=== PATIENT | female | born 1965 | race Caucasian/White ===

== ENCOUNTER 2020-01-21 16:35 | Outpatient (CLI) | payer SELFPAY ==
[2020-01-21 17:22] LABS: Basophils # 0.1 10^3/uL (0.0-0.1); Basophils % 0.5 %; Eosinophils # 0.2 10^3/uL (0.0-0.8); Eosinophils % 2.5 %; Hematocrit 40.3 % (37.0-47.0); Hemoglobin 12.9 g/dL (11.5-15.3); Lymphocytes # 2.2 10^3/uL (0.8-4.8); Lymphocytes % 22.7 %; Mean Corpuscular Hemoglobin 30.6 pg (28.0-34.0); Mean Corpuscular Volume 95.7 fL (81-99); Mean Platelet Volume 9.9 fL (7.4-10.4); Monocytes # 0.5 10^3/uL (0.2-0.9); Monocytes % 5.6 %; Neutrophils # 6.47 10^3/uL (1.8-7.7); Neutrophils % 68.4 %; Nucleated Red Blood Cells % 0 %; Platelet Count 271 10^3/cmm (130-400); Red Blood Count 4.21 10^6/uL (4.1-5.3); White Blood Count 9.5 10^3/uL (4.0-10.0)
[2020-01-21 17:34] LABS: Alanine Aminotransferase 66 U/L (0-33); Albumin Level 4.2 g/dL (3.5-5.2); Alkaline Phosphatase 108 IU/L (35-105); Anion Gap 13.1 (5-19); Aspartate Amino Transferase 42 U/L (0-32); Blood Urea Nitrogen 22 mg/dL (6-20); Calcium 9.6 mg/dL (8.5-10.5); Carbon Dioxide 26 mmol/L (22-29); Chloride 103 mmol/L (98-107); Globulin 2.8 g/dL (1.3-4.6); Glucose 96 mg/dL (65-115); Osmolality Calculated 283 mOsm/kg (285-295); Potassium 4.1 mmol/L (3.5-5.1); Sodium 138 mmol/L (136-145); Total Bilirubin 0.6 mg/dL (0.15-1.2)
[2020-01-21 18:09] LABS: Estmated Average Glucose 148; Hemoglobin A1C 6.8 % (4.0-6.0)
== END 2020-01-21 16:36 | disposition home or self-care (01) ==
PROVIDERS: Visit Provider General Practice
DX: E11.9 Type 2 diabetes mellitus without complications (principal)
CPT/HCPCS: 80053; 83036; 85025

== ENCOUNTER 2020-12-22 18:53 | Outpatient (CLI) | payer SELFPAY ==
[2020-12-22 19:53] LABS: Basophils # 0.1 10^3/uL (0.0-0.1); Basophils % 0.8 %; Eosinophils # 0.3 10^3/uL (0.0-0.8); Eosinophils % 2.8 %; Hematocrit 44.4 % (37.0-47.0); Hemoglobin 13.9 g/dL (11.5-15.3); Lymphocytes # 2.3 10^3/uL (0.8-4.8); Lymphocytes % 23.7 %; Mean Corpuscular HGB Conc 31.3 g/dL (30.0-36.0); Mean Corpuscular Hemoglobin 30.8 pg (28.0-34.0); Mean Corpuscular Volume 98.4 fL (81-99); Mean Platelet Volume 10.1 fL (7.4-10.4); Monocytes # 0.6 10^3/uL (0.2-0.9); Monocytes % 6.6 %; Neutrophils # 6.37 10^3/uL (1.8-7.7); Neutrophils % 65.6 %; Nucleated Red Blood Cells % 0 %; Platelet Count 291 10^3/cmm (130-400); Red Blood Count 4.51 10^6/uL (4.1-5.3); Red Cell Distribution Width 13.1 % (12.1-15.1); White Blood Count 9.7 10^3/uL (4.0-10.0)
[2020-12-22 20:20] LABS: Anion Gap 18.5 (5-19); Blood Urea Nitrogen 12 mg/dL (6-20); Calcium 9.3 mg/dL (8.5-10.5); Carbon Dioxide 24 mmol/L (22-29); Chloride 99 mmol/L (98-107); Glomerular Filtration Rate 74.2 mL/min (90-130); Glucose 144 mg/dL (65-115); Osmolality Calculated 286 mOsm/kg (285-295); Potassium 4.5 mmol/L (3.5-5.1); Sodium 137 mmol/L (136-145)
[2020-12-22 20:27] LABS: Estmated Average Glucose 128; Hemoglobin A1C 6.1 % (4.0-6.0)
== END 2020-12-22 18:54 | disposition home or self-care (01) ==
LOC: LAB 18:55
PROVIDERS: PCP General Practice; Visit Provider General Practice
DX: I10 Essential (primary) hypertension (principal)
CPT/HCPCS: 80048; 83036; 85025

== ENCOUNTER 2021-06-19 11:17 | Outpatient (CLI) | payer OTHER, SELFPAY ==
--- NOTE | 2021-06-19 11:24 | XR_ITS ---
WS: [id number] Exam: XR knee LT 4V [id number] Date/Time of Exam: 06/19/2021 11:38 AM Reason For Exam: LEFT KNEE PAIN Comparison 02/05/2019. Moderate degenerative change of the medial and lateral joint compartments. No fracture or dislocation . No joint effusion. XR/XR knee LT 4V [id number] IMPRESSION: 1. Moderate DJD. No fracture or joint effusion.
--- NOTE | 2021-06-19 11:24 | XR_ITS ---
WS: [id number] Exam: XR knee RT 4V [id number] Date/Time of Exam: 06/19/2021 11:38 AM Reason For Exam: RIGHT KNEE PAIN Comparison 02/05/2019. No acute fracture or dislocation. Mild degenerative changes of the medial and lateral joint compartme nts. No joint effusion. Spurring of the posterior patella. XR/XR knee RT 4V [id number] IMPRESSION: 1. Degenerative changes. No fracture or joint effusion.
== END 2021-06-19 11:18 | disposition home or self-care (01) ==
PROVIDERS: PCP Nurse Practitioner Family; Visit Provider Nurse Practitioner Family
DX: M25.561 Pain in right knee (principal); M17.12 Unilateral primary osteoarthritis, left knee
CPT/HCPCS: 73564

== ENCOUNTER → 2021-07-10 08:40 | Outpatient (BNVA) | payer OTHER, SELFPAY | PROVIDERS: PCP Nurse Practitioner Family; Referring Provider Nurse Practitioner Family; Visit Provider Specialist | DX: M17.0 Bilateral primary osteoarthritis of knee (principal); M25.561 Pain in right knee; M25.562 Pain in left knee | CPT/HCPCS: 73560; 73565 ==

== ENCOUNTER 2021-08-08 09:15 | Outpatient (RCR) | payer OTHER, SELFPAY | END 2021-08-28 23:59 | disposition home or self-care (01) | LOC: SPT 09:15 | PROVIDERS: PCP Nurse Practitioner Family; Referring Provider Specialist; Visit Provider Specialist | DX: M25.562 Pain in left knee (principal); M25.561 Pain in right knee; M17.0 Bilateral primary osteoarthritis of knee | CPT/HCPCS: 97110; 97161 ==

== ENCOUNTER 2021-09-13 09:11 | Outpatient (RCR) | payer OTHER, SELFPAY | END 2021-09-28 23:59 | disposition home or self-care (01) | LOC: SPT 09:11 | PROVIDERS: PCP Nurse Practitioner Family; Referring Provider Specialist; Visit Provider Specialist | DX: M25.562 Pain in left knee (principal); M17.12 Unilateral primary osteoarthritis, left knee | CPT/HCPCS: 97110 ==

== ENCOUNTER 2021-10-13 13:50 | Outpatient (CLI) | payer OTHER, SELFPAY ==
--- NOTE | 2021-10-13 14:13 | MM_ITS ---
WS: [id number] Bilateral screening 3D tomosynthesis digital mammogram, 10/13/2021 Clinical Data: SCREENING Comparison: 07/19/2017, 04/13/2016, 10/15/2014, 10/07/2013, 03/26/2013, 02/19/2013, 07/19/2008. Findings: The breast parenchymal pattern shows fat replacement. No spiculated masses or clustered calcification s are seen. There are no secondary signs of carcinoma. MM/[place] [id number] Impression: 1. Negative bilateral mammogram unchanged. 2. Recommend annual screening mammograms. BIRADS: 1-Negative FOLLOW UP: 1 Year Follow-up The CAD roving or yarn color checker was used.
== END 2021-10-13 13:51 | disposition home or self-care (01) ==
LOC: RAD 13:53
PROVIDERS: PCP Nurse Practitioner Family; Visit Provider Nurse Practitioner Family
DX: Z12.31 Encounter for screening mammogram for malignant neoplasm of breast (principal)
CPT/HCPCS: 77063; 77067

== ENCOUNTER 2022-01-25 14:26 | Emergency (ER) | payer MEDICARE, SELFPAY ==
--- NOTE | 2022-01-25 14:43 | XR_ITS ---
WS: [id number] Exam: XR chest 1V portable [id number] Date/Time of Exam: 01/25/2022 2:43 PM Reason For Exam: syncope Comparison 04/26/2016. Small density seen in the left retrocardiac region near the costophrenic angle may represent left low er lobe infiltrate. Remaining lung esparza are clear. Cardiomediastinal silhouette is unremarkable for technique. Regional bony elements are intact. XR/XR chest 1V portable [id number] IMPRESSION: 1. Small density seen in the left lower lobe in the left retrocardiac region ne ar the costophrenic angle may represent left lower lobe infiltrate. This is an equivocal finding. The chest is otherwise negative.
[2022-01-25 15:00] VITALS: BP 111/65; PULSE 57; RESP 13; TEMP 36.6; O2SAT 100
[2022-01-25 15:07] LABS: Basophils # 0.1 10^3/uL (0.0-0.1); Basophils % 0.5 %; Eosinophils # 0.2 10^3/uL (0.0-0.8); Eosinophils % 1.5 %; Hematocrit 37.5 % (37.0-47.0); Hemoglobin 12.4 g/dL (11.5-15.3); Lymphocytes # 2.2 10^3/uL (0.8-4.8); Lymphocytes % 17.4 %; Mean Corpuscular HGB Conc 33.1 g/dL (30.0-36.0); Mean Corpuscular Hemoglobin 31.1 pg (28.0-34.0); Mean Platelet Volume 10.4 fL (7.4-10.4); Monocytes # 0.8 10^3/uL (0.2-0.9); Monocytes % 6.1 %; Neutrophils % 74.1 %; Nucleated Red Blood Cells % 0 %; Platelet Count 305 10^3/cmm (130-400); Red Blood Count 3.99 10^6/uL (4.1-5.3); White Blood Count 12.4 10^3/uL (4.0-10.0)
--- NOTE | 2022-01-25 15:17 | ECG_ITS ---
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 Measurements Intervals [place] Rate: 59 P: 56 MD: 170 QRS: 5 QRSD: 99 T: 35 QT: 420 QTc: 417 Interpretive Statements SINUS BRADYCARDIA Compared to ECG 01/25/2016 17:12:13 Sinus rhythm no longer present Electronically Signed On 01-25-2022 21:28:59 CDT by Connie Ivy M.D. [email or web address] [email or web address].[email or web address]/store/NU/[id number] f
--- NOTE | 2022-01-25 15:27 | ED_ITS ---
Documented by User: TONEY Betancourt 01/25/22 16:54 HPI - Syncope General: Chief Complaint: Syncope Stated Complaint: SYNCOPAL EPISODE Time Seen by Provider: 01/25/22 15:03 Source: patient Mode of arrival: ambulatory Limitations: no limitations History of Present Illness: Patient is a 56-year-old female who presents to ED today for evaluation following a syncopal episode while urinating. Patient states she has had multiple syncopal episodes (quantifying as approximately 50 over the past 1 to 2 years) that always seem to be present while she is urinating and/or defecating. She states today she was urinating and felt lightheaded and dizzy and knew she was going to pass out thus she lowered herself to the floor before losing brief consciousness. She denies any inju jasiel. She denies striking her head or LOC. She states while on the floor she felt too weak to get up and defecated on herself. Patient currently states she feels a little lightheaded and dizzy. PMH includes HTN, DM, and HLD. Patient denies chest pain, shortness of breath, difficulty breathing, palpitations. MD complaint: loss of consciousness and felt faint Onset (ago): hour(s) -: second(s) Prodromal symptoms: lightheaded Witnessed: No Context: after urination Injuries sustained associated with event: none Associated symptoms: Reports lightheadedness; Deny abdominal pain, chest pain, fever(s), headache(s), nausea or vertigo History: previous syncopal episode Treatments prior to arrival: none Review of Systems Const: Denies: fever(s), chills, body aches, fatigue or malaise Eyes: Denies: change in vision, blurry vision or photophobia Card: Reports: lightheadedness and syncope; Denies: chest pain, palpitations, irregular heart rhythm, edema, swelling of feet/ankles, pre-syncope, dyspnea on exertion, orthopnea, leg pain with exertion or acrocyanosis Resp: Denies: dyspnea, productive cough, wheezing, pain on inspiration, hemoptysis or chest congestion GI: Denies: abdominal pain, nausea, vomiting, heartburn or diarrhea : Denies: dysuria Musc: Denies: neck pain, back pain, extremity pain or joint pain Skin/Breast: Denies: rash Neuro: Reports: dizziness; Denies: headache(s), numbness in extremities, weakness in extremities, sensory changes, lack of coordination, difficulty walking, frequent falls, vertigo, behavioral changes, Slurred speech present, difficulty communicating thoughts or seizure-like activity PFSH ED PFSH: Family History Mother Cervical cancer Social History Smoking and tobacco status: never smoked Second hand smoke exposure: No Smoking risk assessment/counseling performed?: No Alcohol intake: never Physical Exam Const: COMMON NORMALS: no acute distress, patient oriented x3 and alert GENERAL APPEARANCE: cooperative NUTRITIONAL APPEARANCE: obese morbidly obese ORIENTATION/CONSCIOUSNESS: Yes awake, Yes oriented to person, Yes oriented to place and Yes oriented to time OTHER: appears tired/drowsy-this later vastly improved HENMT: COMMON NORMALS: normocephalic and atraumatic HEAD & SCALP: normal to inspection, normocephalic and atraumatic FACE & SINUS: normal facial exam Eye: COMMON NORMALS: Equal, round and reactive pupils present and EOMs intact bilaterally GENERAL EYE: appearance normal, both eyes and all related st ructures and normal light reflex PUPIL: Yes Equal, round and reactive pupils present DIRECT OPHTHALMOSCOPY: Yes normal light reflex Neck/C-Spine: COMMON NORMALS: full ROM, no lymphadenopathy and no meningeal signs CERVICAL SPINE: Yes cervical ROM normal, No pain with cervical ROM, No Cervical spine tenderness, No step off deformity and No Paracervical muscle tend erness Chest: COMMONS NORMALS: normal inspection of the chest and normal palpation of entire chest wall Resp: COMMON NORMALS: normal respiratory effort and clear to auscultation bilaterally AUSCULTATION: clear to auscultation bilaterally Cardio: COMMON NORMALS: regular rate and regular rhythm RATE: regular rate RHYTHM: regular rhythm GI: COMMON NORMALS: Normal to inspection, nondistended, normoactive bowel sounds present, Soft to palpation and non-tender PALPATION: Yes Soft to palpation Back/Pelvis: COMMON NORMALS: thoracic and lumbar spine normal to inspection, no thoracic nor lumbar tenderness and thoraco-lumbar ROM normal Extremity: COMMON NORMALS: normal to inspection GENERAL: Yes normal exam except as noted Neuro: LYUDMILA COMA SCALE: document GCS findings [place] coma scale eye opening: Spontaneous Lyudmila coma scale verbal response: Orientated [place] coma scale motor response: Obey commands [place] coma scale total score: 15 COMMON NORMALS: patient oriented x3, CN's II-XII intact bilaterally, moves all extremities, no focal motor deficits and no sensory deficits noted SENSORIUM/ORIENTATION: Yes alert, Yes oriented to person, Yes oriented to place and Yes oriented to time MENINGEAL SIGNS: Yes no meningeal signs SPEECH: speech normal MOTOR EXAM: 5/5 motor strength present throughout Skin: COMMON NORMALS: no rashes or lesions noted GENERAL SKIN EXAM: no rashes or lesions noted Course Vital Signs: Vital signs: Vital Signs Temperature 97.8 F 01/25/22 15:00 Pulse Rate 65 01/25/22 20:24 Respiratory Rate 16 01/25/22 20:24 Blood Pressure 111/65 01/25/22 16:40 Pulse Oximetry 100 01/25/22 20:24 Oxygen Delivery Me thod 01/25/22 16:40 MDM - Syncope Medical Decision Making Patient here with an episode of syncope while she was on the toilet. Patient states she has multiple previous identical episodes. He is not having any chest pain, shortness of breath, palpitations. Upon re-examination she is much more alert and oriented and conversing with her significant other in the room and eating Taco Jose. Patient's vital signs are stable. Blood work shows some mild kidney injury with a BUN/Cr of 40/1.9. Baseline seems to be roughly 15/0.8. She is on multiple nephrotoxic medications including lisinopril, metformin, and meloxicam. She has mild hyperkalemia at 5.4 without EKG changes. These are incidental findings and I do not think were a factor in her syncopal episode today as she has had multiple episodes previously. EKG showing sinus bradycardia at 59. Baseline trop negative. Patient was given 2L of fluids here. She will be taken off the nephrotoxic medications. We will place her on amlodipine for blood pressure. She can follow-up with PCP in regards to starting something different for her diabetes. I will go ahead and write her outpatient orders for US carotids, stress test, and echocardiogram for further evaluation of her recurrent syncope. She states she has an appointment scheduled with PCP (Tee Olvera) in 3 weeks however I will have case management try to get her a sooner appointment so they can go over medications and repeat a chemistry. Return to ED precautions given. Discussed case with Dr. Maza who agrees with plan for patient. Lab Data : 01/25/22 14:08 01/25/22 14:08 Radiology Impressions Chest X-Ray 01/25/22 14:43 IMPRESSION: 1. Small density seen in the left lower lobe in the left retrocardiac region near the costophrenic angle may represent left lower lobe infiltrate. This is an equivocal finding. The chest is otherwise negative. Laboratory Results WBC 12.4 10^3/uL (4.0-10.0) H 01/25/22 14:08 RBC 3.99 10^6/uL (4.1-5.3) L 01/25/22 14:08 Hgb 12.4 g/dL (11.5-15.3) 01/25/22 14:08 Hct 37.5 % (37.0-47.0) 01/25/22 14:08 MCV 94.0 fl (81-99) 01/25/22 14:08 MCH 31.1 pg (28.0-34.0) 01/25/22 14:08 MCHC 33.1 g/dL (30.0-36.0) 01/25/22 14:08 RDW 13.0 % (12.1-15.1) 01/25/22 14:08 Plt Count 305 10^3/cmm (130-400) 01/25/22 14:08 MPV 10.4 fL (7.4-10.4) 01/25/22 14:08 Neut % (Auto) 74.1 % 01/25/22 14:08 Lymph % (Auto) 17.4 % 01/25/22 14:08 [place] % (Auto) 6.1 % 01/25/22 14:08 Eos % (Auto) 1.5 % 01/25/22 14:08 Baso % (Auto) 0.5 % 01/25/22 14:08 Neut # (Auto) 9.20 10^3/uL (1.8-7.7) H 01/25/22 14:08 Lymph # (Auto) 2.2 10^3/uL (0.8-4.8) 01/25/22 14:08 [place] # (Auto) 0.8 10^3/uL (0.2-0.9) 01/25/22 14:08 Eos # (Auto) 0.2 10^3/uL (0.0-0.8) 01/25/22 14:08 Baso # (Auto) 0.1 10^3/uL (0.0-0.1) 01/25/22 14:08 Nucleated RBC % (auto) 0 % 01/25/22 14:08 Nucleated RBCs # 0.0 /100WBC 01/25/22 14:08 Sodium 133 mmol/L (136-145) L 01/25/22 14:08 Potassium 5.4 mmol/L (3.5-5.1) H 01/25/22 14:08 Chloride 97 mmol/L (98-107) L 01/25/22 14:08 Carbon Dioxide 23 mmol/L (22-29) 01/25/22 14:08 Anion Gap 18.4 (5-19) 01/25/22 14:08 BUN 40 mg/dL (6-20) H 01/25/22 14:08 Creatinine 1.9 mg/dL (0.5-0.9) H 01/25/22 14:08 GFR Calculation 27.2 mL/min (90-130) L 01/25/22 14:08 Glucose 101 mg/dL (65-115) 01/25/22 14:08 Calculated Osmolality 286 mOsm/kg (285-295) 01/25/22 14:08 Calcium 9.5 mg/dL (8.5-10.5) 01/25/22 14:08 Total Bilirubin 1.0 mg/dL (0.15-1.2) 01/25/22 14:08 AST 27 U/L (0-32) 01/25/22 14:08 ALT 25 U/L (0-33) 01/25/22 14:08 Alkaline Phosphatase 76 IU/L (35-105) 01/25/22 14:08 Troponin T Baseline 9 ng/L (0-10) 01/25/22 14:08 Total Protein 7.2 g/dL (6.6-8.7) 01/25/22 14:08 Albumin 4.7 g/dL (3.5-5.2) 01/25/22 14:08 Globulin 2.5 g/dL (1.3-4.6) 01/25/22 14:08 Urine Color Yellow (Yellow) 01/25/22 16:07 Urine Appearance Clear (CLEAR) 01/25/22 16:07 Urine pH 5 (5-7) 01/25/22 16:07 Ur Specific [place] 1.010 (1.005-1.030) 01/25/22 16:07 Urine Protein Neg (Negative) 01/25/22 16:07 Urine Glucose (UA) Norm (Normal) 01/25/22 16:07 Urine Ketones Negative (Negative) 01/25/22 16:07 Urine Blood Neg (Negative) 01/25/22 16:07 Urine Nitrate Negative (Negative) 01/25/22 16:07 Urine Bilirubin Neg (Negative) 01/25/22 16:07 Urine Urobilinogen 1 mg/dL (Negative) H 01/25/22 16:07 Ur Leukocyte Esterase Negative (Negative) 01/25/22 16:07 Urine Opiates Screen Negative ng/mL (Negative) 01/25/22 16:07 Ur Barbiturates Screen Negative ng/mL (Negative) 01/25/22 16:07 Ur Phencyclidine Scrn Negative ng/mL (Negative) 01/25/22 16:07 Ur Amphetamines Screen Negative ng/mL (Negative) 01/25/22 16:07 U Benzodiazepines Scrn Negative ng/mL (Negative) 01/25/22 16:07 Urine Cocaine Screen Negative ng/mL (Negative) 01/25/22 16:07 U Marijuana (THC) Screen Positive ng/mL (Negative) H 01/25/22 16:07 Discharge Plan Discharge Patient Disposition: Home Clinical Impression: Acute kidney injury, Acute hyperkalemia, Recurrent syncope Condition: Stable Prescriptions: New amlodipine 5 mg tablet 5 mg PO DAILY Qty: 30 0RF Discontinued lisinopril 20 mg tablet 20 mg PO QPM metformin 500 mg tablet 500 mg PO DAILY meloxicam 15 mg Tablet 15 mg PO DAILY PRN (Reason: Pain) No Action atorvastatin 20 mg Tablet 20 mg PO DAILY paroxetine HCl 20 mg Tablet 20 mg PO DAILY gabapentin 300 mg capsule 300 mg PO BID Tylenol 325 mg Capsule 325 mg PO QID PRN (Reason: Pain) Fish Oil 100-160-1,000 mg Capsule 1 cap PO DAILY Women's 50 Plus Multivitamin 400 mcg-500 mg calcium-20 mcg Tablet 1 tab PO DAILY vitamin F36-erolu acid 2,500-400 mcg Tablet,Disintegrating 1 tab PO DAILY Discharge Orders: Discharge ED (Routine); Ordered 01/25/22 Ordered By: Valerie Canales Referrals: Maddie Funes FNP [Primary Care Provider] - Activity Restrictions/Additional Instructions: As we discussed your kidney functions were elevated today. You were given fluids here and we will take you off of your nephrotoxic medications (medications that can further injure the kidneys) of meloxicam, lisinopril, metformin. You need to follow-up with your primary care provider as soon as possible (WITHIN ONE WEEK) so they can follow-up with you in regards to your new blood pressure medication, your diabetes, and repeat kidney function labs. Case management/central scheduling should be contacting you to set you up with some outpatient cardiac tests (stress test, echocardiogram, ultrasound of your carotid arteries) for further evaluation of your recurrent syncope. Coding Level of Care Code ED Plycor Operator for Chg Fwd Exam Comprehensive Documented by User: Jossue Maza DO 01/27/22 07:52 HPI - Syncope General: Chief Complaint: Syncope Stated Complaint: SYNCOPAL EPISODE Time Seen by Provider: 01/25/22 15:03 PFS ED PFSH: Family History Mother Cervical cancer Social History Smoking and tobacco status: never smoked Second hand smoke exposure: No Smoking risk assessment/counseling performed?: No Alcohol intake: never Physical Exam Neuro: LYUDMILA COMA SCALE: document GCS findings Lyudmila coma scale total scor e: 15 Course Vital Signs: Vital signs: Vital Signs Temperature 97.8 F 01/25/22 15:00 Pulse Rate 65 01/25/22 20:24 Respiratory Rate 16 01/25/22 20:24 Blood Pressure 111/65 01/25/22 16:40 Pulse Oximetry 100 01/25/22 20:24 Oxygen Delivery Me thod 01/25/22 16:40 MDM - Syncope Medical Decision Making Patient here with an episode of syncope while she was on the toilet. Patient states she has multiple previous identical episodes. He is not having any chest pain, shortness of breath, palpitations. Upon re-examination she is much more alert and oriented and conversing with her significant other in the room and eating Taco Jose. Patient's vital signs are stable. Blood work shows some mild kidney injury with a BUN/Cr of 40/1.9. Baseline seems to be roughly 15/0.8. She is on multiple nephrotoxic medications including lisinopril, metformin, and meloxicam. She has mild hyperkalemia at 5.4 without EKG changes. These are incidental findings and I do not think were a factor in her syncopal episode today as she has had multiple episodes previously. EKG showing sinus bradycardia at 59. Baseline trop negative. Patient was given 2L of fluids here. She will be taken off the nephrotoxic medications. We will place her on amlodipine for blood pressure. She can follow-up with PCP in regards to starting something dif ferent for her diabetes. I will go ahead and write her outpatient orders for US carotids, stress test, and echocardiogram for further evaluation of her recurrent syncope. She states she has an appointment scheduled with PCP (Tee Olvera) in 3 weeks however I will have case management try to get her a sooner appointment so they can go over medications and repeat a chemistry. Return to ED precautions given. Discussed case with Dr. Maza who agrees with plan for patient. Chart reviewed and patient discussed with midlevel. Agree with assessment and plan. Lab Data : 01/25/22 14:08 01/25/22 14:08 Radiology Impressions Chest X-Ray 01/25/22 14:43 IMPRESSION: 1. Small density seen in the left lower lobe in the left retrocardiac region near the costophrenic angle may represent left lower lobe infiltrate. This is an equivocal finding. The chest is otherwise negative. Laboratory Results WBC 12.4 10^3/uL (4.0-10.0) H 01/25/22 14:08 RBC 3.99 10^6/uL (4.1-5.3) L 01/25/22 14:08 Hgb 12.4 g/dL (11.5-15.3) 01/25/22 14:08 Hct 37.5 % (37.0-47.0) 01/25/22 14:08 MCV 94.0 fl (81-99) 01/25/22 14:08 MCH 31.1 pg (28.0-34.0) 01/25/22 14:08 MCHC 33.1 g/dL (30.0-36.0) 01/25/22 14:08 RDW 13.0 % (12.1-15.1) 01/25/22 14:08 Plt Count 305 10^3/cmm (130-400) 01/25/22 14:08 MPV 10.4 fL (7.4-10.4) 01/25/22 14:08 Neut % (Auto) 74.1 % 01/25/22 14:08 Lymph % (Auto) 17.4 % 01/25/22 14:08 [place] % (Auto) 6.1 % 01/25/22 14:08 Eos % (Auto) 1.5 % 01/25/22 14:08 Baso % (Auto) 0.5 % 01/25/22 14:08 Neut # (Auto) 9.20 10^3/uL (1.8-7.7) H 01/25/22 14:08 Lymph # (Auto) 2.2 10^3/uL (0.8-4.8) 01/25/22 14:08 [place] # (Auto) 0.8 10^3/uL (0.2-0.9) 01/25/22 14:08 Eos # (Auto) 0.2 10^3/uL (0.0-0.8) 01/25/22 14:08 Baso # (Auto) 0.1 10^3/uL (0.0-0.1) 01/25/22 14:08 Nucleated RBC % (auto) 0 % 01/25/22 14:08 Nucleated RBCs # 0.0 /100WBC 01/25/22 14:08 Sodium 133 mmol/L (136-145) L 01/25/22 14:08 Potassium 5.4 mmol/L (3.5-5.1) H 01/25/22 14:08 Chloride 97 mmol/L (98-107) L 01/25/22 14:08 Carbon Dioxide 23 mmol/L (22-29) 01/25/22 14:08 Anion Gap 18.4 (5-19) 01/25/22 14:08 BUN 40 mg/dL (6-20) H 01/25/22 14:08 Creatinine 1.9 mg/dL (0.5-0.9) H 01/25/22 14:08 GFR Calculation 27.2 mL/min (90-130) L 01/25/22 14:08 Glucose 101 mg/dL (65-115) 01/25/22 14:08 Calculated Osmolality 286 mOsm/kg (285-295) 01/25/22 14:08 Calcium 9.5 mg/dL (8.5-10.5) 01/25/22 14:08 Total Bilirubin 1.0 mg/dL (0.15-1.2) 01/25/22 14:08 AST 27 U/L (0-32) 01/25/22 14:08 ALT 25 U/L (0-33) 01/25/22 14:08 Alkaline Phosphatase 76 IU/L (35-105) 01/25/22 14:08 Troponin T Baseline 9 ng/L (0-10) 01/25/22 14:08 Total Protein 7.2 g/dL (6.6-8.7) 01/25/22 14:08 Albumin 4.7 g/dL (3.5-5.2) 01/25/22 14:08 Globulin 2.5 g/dL (1.3-4.6) 01/25/22 14:08 Urine Color Yellow (Yellow) 01/25/22 16:07 Urine Appearance Clear (CLEAR) 01/25/22 16:07 Urine pH 5 (5-7) 01/25/22 16:07 Ur Specific [place] 1.010 (1.005-1.030) 01/25/22 16:07 Urine Protein Neg (Negative) 01/25/22 16:07 Urine Glucose (UA) Norm (Normal) 01/25/22 16:07 Urine Ketones Negative (Negative) 01/25/22 16:07 Urine Blood Neg (Negative) 01/25/22 16:07 Urine Nitrate Negative (Negative) 01/25/22 16:07 Urine Bilirubin Neg (Negative) 01/25/22 16:07 Urine Urobilinogen 1 mg/dL (Negative) H 01/25/22 16:07 Ur Leukocyte Esterase Negative (Negative) 01/25/22 16:07 Urine Opiates Screen Negative ng/mL (Negative) 01/25/22 16:07 Ur Barbiturates Screen Negative ng/mL (Negative) 01/25/22 16:07 Ur Phencyclidine Scrn Negative ng/mL (Negative) 01/25/22 16:07 Ur Amphetamines Screen Negative ng/mL (Negative) 01/25/22 16:07 U Benzodiazepines Scrn Negative ng/mL (Negative) 01/25/22 16:07 Urine Cocaine Screen Negative ng/mL (Negative) 01/25/22 16:07 U Marijuana (THC) Screen Positive ng/mL (Negative) H 01/25/22 16:07 Discharge Plan Discharge Patient Disposition: Home Clinical Impression: Acute kidney injury, Acute hyperkalemia, Recurrent syncope Condition: Stable Prescriptions: New amlodipine 5 mg tablet 5 mg PO DAILY Qty: 30 0RF Discontinued lisinopril 20 mg tablet 20 mg PO QPM metformin 500 mg tablet 500 mg PO DAILY meloxicam 15 mg Tablet 15 mg PO DAILY PRN (Reason: Pain) No Action atorvastatin 20 mg Tablet 20 mg PO DAILY paroxetine HCl 20 mg Tablet 20 mg PO DAILY gabapentin 300 mg capsule 300 mg PO BID Tylenol 325 mg Capsule 325 mg PO QID PRN (Reason: Pain) Fish Oil 100-160-1,000 mg Capsule 1 cap PO DAILY Women's 50 Plus Multivitamin 400 mcg-500 mg calcium-20 mcg Tablet 1 tab PO DAILY vitamin M18-hhkii acid 2,500-400 mcg Tablet,Disintegrating 1 tab PO DAILY Discharge Orders: Discharge ED (Routine); Ordered 01/25/22 Ordered By: Valerie Canales Referrals: Maddie Funes CURRICULUM WRITER [Primary Care Provider] - Activity Restrictions/Additional Instructions: As we discussed your kidney functions were elevated today. You were given fluids here and we will take you off of your nephrotoxic medications (medi cations that can further injure the kidneys) of meloxicam, lisinopril, metformin. You need to follow-up with your primary care provider as soon as possible (WITHIN ONE WEEK) so they can follow-up with you in regards to your new blood pressure medication, your diabetes, and repeat kidney function labs. Case management/central scheduling should be contacting you to set you up with some outpatient cardiac tests (stress test, echocardiogram, ultrasound of your carotid arteries) for further evaluation of your recurrent syncope. Coding Level of Care Code ED Plycor Operator for Chg Fwd Exam Comprehensive
[2022-01-25 15:41] LABS: Alanine Aminotransferase 25 U/L (0-33); Albumin Level 4.7 g/dL (3.5-5.2); Alkaline Phosphatase 76 IU/L (35-105); Anion Gap 18.4 (5-19); Aspartate Amino Transferase 27 U/L (0-32); Blood Urea Nitrogen 40 mg/dL (6-20); Calcium 9.5 mg/dL (8.5-10.5); Carbon Dioxide 23 mmol/L (22-29); Chloride 97 mmol/L (98-107); Globulin 2.5 g/dL (1.3-4.6); Glomerular Filtration Rate 27.2 mL/min (90-130); Glucose 101 mg/dL (65-115); Osmolality Calculated 286 mOsm/kg (285-295); Potassium 5.4 mmol/L (3.5-5.1); Sodium 133 mmol/L (136-145); Total Protein 7.2 g/dL (6.6-8.7)
[2022-01-25 15:42] LABS: Troponin(5th) Baseline 9 ng/L (0-10)
[2022-01-25 16:18] LABS: Add Urine Microscopic? NO; Charge for UA Resulting for Rev
[2022-01-25 16:20] LABS: Bilirubin Urine Neg (Negative); Blood Urine Neg (Negative); Glucose Urine UA Norm (Normal); Ketones Urine Negative (Negative); Leukocyte Esterase Urine Negative (Negative); Nitrate Urine Negative (Negative); Protein Urine Neg (Negative); Urine Appearance Clear (CLEAR); Urine Color Yellow (Yellow); Urobilinogen Urine 1 mg/dL (Negative); pH Urine 5 (5-7)
[2022-01-25 16:29] LABS: Amphetamines Screen Urine Negative (Negative); Barbiturates Screen Urine Negative (Negative); Benzodiazepines Screen Urine Negative (Negative); Cocaine Screen Urine Negative (Negative); Opiate Screen Urine Negative (Negative); PCP Screen Urine Negative (Negative); THC Screen Urine Positive (Negative)
[2022-01-25] MEDS: sodium chloride 0.9% 1,000 ML 999 ML IV ×2 (16:30→16:50)
[2022-01-25 16:40] VITALS: BP 111/65; PULSE 66; RESP 18; O2SAT 100
--- NOTE | 2022-01-25 17:44 | ECG_ITS ---
[facility] Test Date: 2022-01-25 Pat Name: Nicole Villa Department: Room: Gender: Female Generation Technician: : 1965 Requested By: Valerie Canales Order Number: [id number] Edith MD: Meg Meza M.D. Measurements Intervals [place] Rate: 63 P: 56 NH: 179 QRS: 4 QRSD: 95 T: 38 QT: 425 QTc: 435 Interpretive Statements SINUS RHYTHM Compared to ECG 01/25/2022 15:17:48 Sinus bradycardia no longer present Electronically Signed On 01-26-2022 10:38:57 CDT by Meg Meza M.D. [id number]
[2022-01-25 20:24] VITALS: PULSE 65; RESP 16; O2SAT 100
--- NOTE | 2022-01-29 10:29 | DCPLANNER ---
manager human capital had message to see if patients appointment at [facility] could be rescheduled any sooner that what it is scheduled. manager human capital called [facility] to see if patient was a patient at [facility] and to see if patients appointment could be seen sooner. manager human capital was told that patient had not been seen at the clinic since 2005, patient has a new patient appointment scheduled for February 20. Patient will be seeing Dr. Hahn, who will start on February 12. Patient can not be seen any sooner. manager human capital called patient to inform patient of this, unable to speak with patient at this time. manager human capital called phone number [phone], a voicemail was left for patient to return piano case and bench assembler phone call.
--- NOTE | 2022-01-29 10:39 | DCPLANNER ---
Addendum entered by Ivet Avery 07/10/22 12:54: Patient did not attend appointment scheduled for an echo Original Note: recreation manager had message to schedule an outpatient echo cardiogram for patient. recreation manager faxed signed order to centralized scheduling who will call patient with appointment information.
--- NOTE | 2022-01-29 10:52 | DCPLANNER ---
Addendum entered by Ivet Avery 07/10/22 12:51: Patient did attend appointment for an out patient stress test. Original Note: general manager in training also had a message to schedule an out patient stress test. general manager in training faxed signed order to centralized scheduling for an outpatient stress test. Centralized scheduling will call patient with appointment information.
--- NOTE | 2022-01-29 10:53 | DCPLANNER ---
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 livestock nutrition territory manager faxed signed order to centralized scheduling, who will call patient with appointment information.
== END 2022-01-25 20:25 | disposition home or self-care (01) ==
PROVIDERS: Emergency Provider Physician Assistant; PCP Nurse Practitioner Family
DX: R55 Syncope and collapse (principal); E87.5 Hyperkalemia; N17.9 Acute kidney failure, unspecified
CPT/HCPCS: 71045; 80053; 80306; 81003; 84484; 85025; 93005; 96360; 96361; 99285; J7030

== ENCOUNTER → 2022-03-07 12:32 | Outpatient (BNVA) | payer MEDICARE, SELFPAY | PROVIDERS: PCP Family Medicine; Visit Provider Internal Medicine Cardiovascular Disease | DX: R55 Syncope and collapse (principal); I49.1 Atrial premature depolarization; I49.3 Ventricular premature depolarization | CPT/HCPCS: 93270 ==

== ENCOUNTER 2022-04-27 07:29 | Outpatient (CLI) | payer MEDICARE, SELFPAY ==
[2022-04-27 08:00] VITALS: BMI 36.6
--- NOTE | 2022-04-27 08:41 | ECG_ITS ---
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 Interpretive Statements NAME OF STUDY: LEXISCAN SESTAMIBI STRESS TEST INDICATION: Syncope, PROCEDURE: At the baseline, the EKG revealed normal sinus rhythm with poor R wave progression.. The baseline heart was 62 bpm with a blood pressue of 141/80 mm of Hg Lexiscan was infused over a period of 20 seconds. A total of 0.4 milligrams of Lexiscan was infused. The stress phase was continued for a total of 5 minutes. Heart rate at the end of the stress phase was 78 bpm with a blood pressure 147/82 mm of Hg. The EKG at the peak infusion revealed no significant changes. Sestamibi was injected 20 seconds after the Lexiscan infusion. Heart rate at the end of the recovery phase was 73 bpm with a blood pressure of 127/82 mm of Hg. CONCLUSION: 1. No significant EKG changes with the LexiScan infusion 2. No LexiScan induced chest pain or cardiac arrhythmia 3. Normal blood pressure and heart rate response 4. Sestamibi/sestamibi perfusion scan pending; see separate report. Electronically Signed On 05-04-2022 7:33:52 CDT by Connie Ivy M.D. [email or web address]
--- NOTE | 2022-04-27 08:42 | NMCV_ITS ---
NM rina perf SPECT r/s* [id number] Nicole Villa Age: 56 Gender: F : 1965 Exam Date: 04/27/2022 08:46 Ordering Phys: Arturo Hahn MD Technologist: WENDY Tarango Exam Location: [facility] Indications: SYNCOPE AND COLLAPSE STRESS TEST Please see separate stress test report in [facility] for full findings IMAGE PROTOCOL Rest/Stress 1 Lexiscan Day Radiopharmaceutical Dose (mCi) Administration Site Administered by Rest: Tc-99m 10.8 IV WENDY Celeste Sestamibi Stress:Tc-99m 32.6 IV WNEDY Celeste Sestamibi Rest: 27-Apr-2022 60 Discovery 630 Stress: 27-Apr-2022 30 Discovery 630 0.4mg Lexiscan. Images obtained in supine and prone position. SPECT RESULTS Technical Quality: Good Raw Data Analysis: Normal Image Corrections: No attenuation or motion correction applied Summed Stress Score: 3 Summed Rest Score: 0 Summed Difference Score: 3 PERFUSION FINDINGS Small to moderate area of slightly decreased eccentric was noted on the mid inferolateral and apical lateral regions. Almost complete reversibility was noted at rest. FUNCTIONAL RESULTS (calculated via Gated SPECT) Stress Image LV EF (%): 74 Stress EDV (mL):82 TID: 0.95 Stress ESV (mL):21 FUNCTIONAL FINDINGS: Segmental wall motion analysis revealing no gross wall motion abnormalities. IMPRESSIONS 1. Myocardial perfusion imaging revealing small to moderate area of reversible defect in the mid inferolateral and apical lateral regions suggesting ischemia in the distribution of the left circumflex artery. 2. Normal LV ejection fraction 74%. 3. LV wall motion analysis revealing no gross wall motion normalities. 4. Normal LV volume No similar previous studies are available for comparison Dr Connie Ivy MD [facility] (Electronically Signed) Final Date: 30 April 2022 08:46 S
[2022-04-27 09:27] VITALS: BP 127/82; PULSE 71
[2022-04-27] MEDS: regadenoson 0.4 Mg/5 ml Syringe IVP (09:27)
== END 2022-04-27 07:30 | disposition home or self-care (01) ==
LOC: CDL 07:32
PROVIDERS: PCP Family Medicine; Visit Provider Family Medicine
DX: R55 Syncope and collapse (principal)
CPT/HCPCS: 78452; 93017; A9500; J2785

== ENCOUNTER → 2022-07-04 10:27 | Outpatient (BNVA) | payer MEDICARE, SELFPAY | PROVIDERS: PCP Family Medicine; Visit Provider Internal Medicine Cardiovascular Disease | DX: R94.39 Abnormal result of other cardiovascular function study (principal); R06.02 Shortness of breath; I10 Essential (primary) hypertension; E78.5 Hyperlipidemia, unspecified; E66.01 Morbid (severe) obesity due to excess calories; Z68.41 Body mass index [BMI] 40.0-44.9, adult | CPT/HCPCS: 99204; Q3014 ==

== ENCOUNTER → 2023-01-15 12:06 | Outpatient (BNVA) | payer MEDICARE, SELFPAY | PROVIDERS: PCP Family Medicine; Visit Provider Internal Medicine Cardiovascular Disease | DX: E78.5 Hyperlipidemia, unspecified (principal); R06.02 Shortness of breath; I10 Essential (primary) hypertension; E66.01 Morbid (severe) obesity due to excess calories; Z68.41 Body mass index [BMI] 40.0-44.9, adult | CPT/HCPCS: 36415; 80053; 80061; 83735; 83880; 85025; 99214 ==

== ENCOUNTER 2023-01-31 07:31 | Outpatient (CLI) | payer MEDICARE, SELFPAY ==
[2023-01-31] VITALS (15 sets, daily range): BP systolic 140–195; BP diastolic 68–125; PULSE 69–89; RESP 12–21; TEMP 36; O2SAT 93–98; BMI 44.0
--- NOTE | 2023-01-31 07:30 | XACV_ITS ---
Exam Room: 2 Ht: 157 cm Wt: 109 kg BSA: 2.25 m2 Gender: Female : 1965 Exam Priority: Routine Procedure(s): Procedure Description: Diagnostic procedure Procedure Description: Left Heart Catheterization Procedure Description: Coronary Angiography Diagnostic Cath Status: Elective Diagnostic Findings * 57-year-old woman with past medical history of hypertension, hyperlipidemia and abnormal stress test with small to moderate area of reversible ischemia in circumflex artery territory. She continues to have exertional shortness of breath and intermittent chest pains. I decided to proceed with coronary angiogram.. * No disease noted in the Left Main, Left Anterior Descending, Right, or Circumflex coronary arteries. * Coronary angiography shows codominant circulation. Conclusions 1. No disease noted in the Left Main, Left Anterior Descending, Right, or Circumflex coronary arteries. Recommendations * Continue current medical management and risk factor modification. * Return to inpatient for close monitoring and routine cath care. LV EDP: 25 mmHg Left Ventriculography Findings: * Left Ventriculogram not performed to minimize contrast use. Pressures Phase:Rest AO : 145 / 85 ( 112 ) @ 10:05:00 AM 110 / 88 ( 100 ) @ 10:09:00 AM 115 / 89 ( 103 ) @ 10:10:00 AM 116 / 91 ( 104 ) @ 10:15:00 AM 122 / 93 ( 108 ) @ 10:20:00 AM 147 / 76 ( 110 ) @ 10:25:00 AM 146 / 85 ( 112 ) @ 10:26:00 AM LV : 153 / 4 / 25 @ 10:24:00 AM Clinical Evaluation EBL: 5mL-10mL Procedural Details Procedure Consent Obtained. Admit Source: Out Patient. Pre-Procedure Time Out. Identified patient by full name and date of as verbalized by the patient/guarantor. Does the consent match the physician's order: Yes. Accurate & Complete Informed Consent: Yes. Inpatient/Outpatient History & Physical on Chart: Yes. If H&P is completed, is and addenduem needed: No; If yes, is the addendum complete: N/A. Visualize and Verify Site with Patient/Guarantor: N/A. Relevant Radiology Images available: N/A. The risks, benefits, and alternatives of sedation and/or procedure were discussed by physician. The patient agrees to continue. Procedure started. [facility] Clinical Fraility Score: 3: Managing Well. Lead Scientist Indications: abnormal stress test, worsening SOB. Chest Pain Symptom Assessment: Atypical Angina. Correct patient, site and procedure confirmed by cath team. PERRLA. Strong, equal hand observer electrical prospecting bilaterally. Lungs clear x 5 lobes. IV Site on Arrival: 20 gauge in the right anticubital. IV Fluids: 0.9% NaCl at KVO. 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 Pre Procedural Pulses: bilateral posterior tibial was Doppled. Pre Procedural Pulses: bilateral radial was 3+. Pre Procedural Pulses: bilateral dorsalis pedis was 2+. Oxygen started at 2liters/min via nasal canula. right groin was prepped with chloroprep then draped in the usual sterile fashion. right radial was prepped with chloroprep then draped in the usual sterile fashion. Physician notified. Baseline sample Acquired. HR: 81 BPM. Physician arrived. Physician scrubbed in. Immediate Pre-Procedure Time Out. Correct Patient: Yes; Correct Procedure: Yes; Correct Site: Yes; Correct Patient Position: Yes; Correct Supplies: Yes; Dried Flammable Prep: Yes; Blood Products Available: N/A;. Lidocaine 1% infiltrated to the right radial. Arterial access obtained. A 5 urdu TIG catheter in over wire. Multiple views taken of left coronary artery. Catheter redirected to the RCA. Multiple views taken of right coronary artery. Catheter out. A 5 urdu JL4 catheter in over wire. Multiple views taken of left coronary artery. A 5 urdu JR4 catheter in over wire. Multiple views taken of right coronary artery. EDP Sample taken: LV 153/4,25; HR: 86 BPM; SpO2: 96%. Pullback taken: LV Off; AO Off; Mean: , Peak to Peak: , SEP: ; HR: 84 BPM; SpO2: 95%. Catheter out. A TR Band was successful obtaining hemostatsis at the Right Radial artery insertion site. Post Procedure: Pulses reassessed and unchanged. PERRLA. Strong, equal hand observer electrical prospecting bilaterally. No VTE prophylaxis required. Medication's Wasted: Lidocaine 1% = 2 mL. Medication's Wasted: Nitro = 49.8 mg. Medication's Wasted: Heparin = 1000 units. Total IV fluids: 63 mL. Post-op diagnosis: normal coronory arteries. Complications: none. Estimated blood loss: 5mL-10mL. Responsiveness - Normal response to verbal stimuli; alert and oriented, PERRLA. Airway - Unaffected, no intervention required; spontaneous ventilation. Circulation: W/N/L, pulses unchanged. Nausea/Vomiting: No. Procedure completed. Patient transferred by wheelchair to CPRU. Vital chart was stopped. Access Site Site: Right Radial artery Sheath Size: 6 Fr Hemostasis Method: TR Band Hemostasis Success: Successful Procedure Medications Start: 8:44 AM Stop: 8:44 AM Medication: Fentanyl Amount: 25 mcg Route: I.V. Start: 8:51 AM Stop: 8:51 AM Medication: Versed 1 mg and Fentanyl 25 mcg Amount: 1 Route: I.V. Start: 9:02 AM Stop: 9:02 AM Medication: Nitrogylcerin Amount: 200 mcg Route: I.A. Start: 9:04 AM Stop: 9:04 AM Medication: Heparin Amount: 5000 units Route: I.V. Start: 9:04 AM Stop: 9:04 AM Medication: Versed Amount: 1 mg Route: I.V. Start: 9:05 AM Stop: 9:05 AM Medication: Fentanyl Amount: 25 mcg Route: I.V. Start: 9:22 AM Stop: 9:22 AM Medication: Fentanyl Amount: 25 mcg Route: I.V. I, the attending physician, have reviewed and verified all procedure medications. Yes, all medications given per verbal order History/Risk Factors Hypertension: Yes Dyslipidemia: Yes Peripheral Arterial Disease (PAD): No Myocardial Infarction (NE): No Obesity: Yes Tobacco Use: Never Prior Interventions PCI: No CABG: No Valve Surgery: No Report Signatures Finalized by Meg Meza MD on 01/31/2023 04:24 PM
[2023-01-31] MEDS: diphenhydrAMINE 50 mg Capsule PO (07:41)
[2023-01-31] MEDS: aspirin 325 mg Tablet PO (07:41)
--- NOTE | 2023-01-31 08:40 | P.HPUD_ITS ---
Surgery/Procedure H&P Update DATE OF PROCEDURE: January 31, 2023 DATE H&P PERFORMED: 01/15/23 H&P UPDATE INFORMATION: I have reviewed H&P completed within last 30 days, I have examined patient prior to procedure and No changes to prior documentation PREOP DIAGNOSIS: exertional shortness of nreath, abnormal stress test PRIMARY INDICATION FOR PROCEDURE: Extertional shortness of breath, abnormal stres stest PLANNED PROCEDURE: Operation Date: 01/31/23 08:30 Proposed Procedures p [facility] w/wo [id number] R94.39,R06.02(Left) - Meg Meza MD PATIENT REASSESSED PRIOR TO SEDATION, WITH NO CHANGE NOTED: Yes PHYSICAL EXAM: alert, oriented x 3, clear to auscultation bilaterally and regular rate & rhythm AIRWAY EVAL/ANESTHESIA PLAN: normal airway, ASA III, Monitored Anesthesia, Local Anesthesia, Risks, benefits & alternatives of sedation and/or procedure discussed and Patient agrees to continue as planned
--- NOTE | 2023-01-31 09:40 | SUR.PHASEII ---
Received the patient back from the aquatic laborer via wheelchair s/p Diagnostic [facility]. Patient ambulated to the cot without difficulty. A & 0 x 3. monitor and storage bin tender placed and vital signs obtained. TR band intact to the right wrist. No bleeding or hematoma noted. Palpable radial pulse. NS infusing to the 20g PIV in the right AC at 75mL/hr. No other assessment changes noted from pre cath assessment. No concerns voiced at this time.
--- NOTE | 2023-01-31 10:05 | SUR.PHASEII ---
Dr. Meza called about the patients hypertension. Orders received for PO DALLIN med. See MAR.
[2023-01-31] MEDS: amlodipine 10 mg Tablet PO (10:12)
--- NOTE | 2023-01-31 10:40 | SUR.EXTENDED ---
Letting the air out of the TR band per protocol.
--- NOTE | 2023-01-31 11:22 | SUR.PHASEII ---
Dr. Meza notified about continued hypertension despite PO med given at 1012. New orders received. See AUG.
[2023-01-31] MEDS: hyDRALAzine 20 mg/mL INJ 1 mL 10 MG IVP (11:35)
--- NOTE | 2023-01-31 11:40 | SUR.EXTENDED ---
TR Band off. Area cleansed with warm water & patted dry. A large bandaid was applied to the site. Coban was loosly applied to the wrist. No bleeding or hematoma noted. Site soft with palpable radial pulse. No other assessment changes noted a this time.
--- NOTE | 2023-01-31 12:14 | SUR.EXTENDED ---
Dr. Meza called again with the patients ongoing hypertension. New orders received. See AUG.
[2023-01-31] MEDS: labetalol 5 mg/mL SDV 20mL 20 MG IVP (12:28)
== END 2023-01-31 13:05 | disposition home or self-care (01) ==
PROVIDERS: PCP Family Medicine; Visit Provider Internal Medicine Cardiovascular Disease
DX: R06.02 Shortness of breath (principal); R94.39 Abnormal result of other cardiovascular function study; I10 Essential (primary) hypertension; E78.5 Hyperlipidemia, unspecified; R07.9 Chest pain, unspecified; E66.9 Obesity, unspecified; Z68.41 Body mass index [BMI] 40.0-44.9, adult
CPT/HCPCS: 36415; 93458; 96361; 96365; 99152; 99153; C1769; C1887; C1894; J0360; J1644; J2250; J3010; J3490; J7030; Q0163; Q9967

== ENCOUNTER → 2023-02-07 09:04 | Outpatient (BNVA) | payer MEDICARE, SELFPAY | PROVIDERS: PCP Family Medicine; Visit Provider Nurse Practitioner Family | DX: R06.02 Shortness of breath (principal); I10 Essential (primary) hypertension | CPT/HCPCS: 36415; 80048; 99214 ==

== ENCOUNTER → 2023-02-18 09:35 | Outpatient (BNVA) | payer MEDICARE, SELFPAY | PROVIDERS: PCP Family Medicine; Visit Provider Specialist | DX: M17.11 Unilateral primary osteoarthritis, right knee | CPT/HCPCS: 73560; 73565; 99214 ==

== ENCOUNTER → 2023-04-12 09:59 | Outpatient (BNVA) | payer MEDICARE, SELFPAY | PROVIDERS: PCP Family Medicine; Visit Provider Internal Medicine Cardiovascular Disease | DX: R06.02 Shortness of breath (principal); I10 Essential (primary) hypertension; E78.5 Hyperlipidemia, unspecified | CPT/HCPCS: 99214 ==

== ENCOUNTER 2024-03-13 18:17 | Emergency (ER) | payer MEDICARE, MEDICAID, SELFPAY ==
[2024-03-13 18:27] VITALS: BP 176/113; PULSE 80; RESP 18; TEMP 36.8; O2SAT 96
[2024-03-13 19:23] VITALS: PULSE 78; RESP 16; O2SAT 96
--- NOTE | 2024-03-13 19:47 | CTR_ITS ---
PROCEDURE INFORMATION: Exam: CT Head Without Contrast Exam date and time: 03/13/2024 8:25 PM Age: 58 years old Clinical indication: Pain; Headache; Patient HX: C/O MCKNIGHT with dizziness; Additional info: Headache dizziness TECHNIQUE: Imaging protocol: Computed tomography of the head without contrast. Radiation optimization: All CT scans at this facility use at least one of these dose optimization techniques: automated exposure control; mA and/or kV adjustment per patient size (includes targeted exams where dose is matched to clinical indication); or iterative reconstruction. COMPARISON: No relevant prior studies available. RADIATION DOSE METRICS: Total DLP (mGy-cm): 1073.78 FINDINGS: Brain: No intracranial hemorrhage. There is global parenchymal volume loss. Periventricular white matter hypoattenuation is nonspecific but most likely due to small vessel disease. No evidence of acute territorial infarct or cerebral edema. No mass effect or midline shift. Left anterior frontal parafalcine extra-axial calcified lesion measuring 1.1 x 0.7 x 1.1 cm, likely a calcified meningioma versus frontal osteoma. Additional right frontal vertex calcified extra-axial lesion measuring 0.5 x 0.5 x 0.3 cm is also seen (series 8, image 42). Prominent falcine dural ossifications. Cerebral ventricles: Prominent ventricles likely secondary to volume loss. Pituitary gland and sella: There is a partially empty sella. Paranasal sinuses: Visualized paranasal sinuses are clear. Mastoid air cells: The mastoid air cells are clear. Bones: The calvarium is intact. Soft tissues: Soft tissues are unremarkable as visualized. CT/CT head wo con* [id number] IMPRESSION: 1. No acute intracranial findings. 2. Left anterior frontal parafalcine and right frontal vertex calcified meningiomas versus osteomas.
--- NOTE | 2024-03-13 19:47 | XRR_ITS ---
PROCEDURE INFORMATION: Exam: XR Chest Exam date and time: 03/13/2024 8:47 PM Age: 58 years old Clinical indication: Cough and dyspnea; Patient HX: Dyspnea; Cough; Epigastric pain TECHNIQUE: Imaging protocol: Radiologic exam of the chest. Views: 1 view. COMPARISON: CR XR chest 1V portable [id number] 01/25/2022 2:58 PM FINDINGS: Lungs: No focal consolidation. Left peripheral basilar scarring versus atelectasis. Pleural spaces: No sizable pleural effusion. No pneumothorax. Heart/Mediastinum: Unremarkable cardiomediastinal silhouette. Aortic knob calcifications. Bones/joints: The osseous structures are unremarkable. Soft tissues: Soft tissues are unremarkable as visualized. XR/XR chest 1V portable [id number] IMPRESSION: No acute findings.
--- NOTE | 2024-03-13 19:56 | ECG_ITS ---
[facility] Test Date: 2024-03-13 Pat Name: Nicole Villa Department: Room: Gender: Female Rn Circulating: : 1965 Requested By: Jossue Figueroa Order Number: [id number] Edith MD: Everardo Agarwal M.D. Measurements Intervals Moss Rate: 66 P: 58 MT: 168 QRS: -14 QRSD: 92 T: 65 QT: 388 QTc: 409 Interpretive Statements SINUS RHYTHM POSSIBLE LEFT ATRIAL ENLARGEMENT [-0.1mV P-WAVE IN V1/V2] SEPTAL MYOCARDIAL INFARCTION , PROBABLY OLD [40+ ms Q WAVE IN V1/V2] Compared to ECG 01/25/2022 17:44:08 Myocardial infarct finding now present Electronically Signed On 03-15-2024 9:17:13 CDT by Everardo Agarwal M.D. [email or web address]
[2024-03-13 20:09] LABS: Basophils # 0.1 10^3/uL (0.0-0.1); Basophils % 0.5 %; Eosinophils # 0.2 10^3/uL (0.0-0.8); Eosinophils % 1.3 %; Hematocrit 44.1 % (36-47); Lymphocytes # 2.6 10^3/uL (0.8-4.8); Lymphocytes % 19.5 %; Mean Corpuscular HGB Conc 33.6 g/dL (30-55); Mean Corpuscular Hemoglobin 31.3 pg (27-33); Mean Corpuscular Volume 93.2 fl (85-98); Mean Platelet Volume 8.9 fL (7.4-10.4); Monocytes # 0.9 10^3/uL (0.2-0.9); Monocytes % 6.4 %; Neutrophils % 72.1 %; Nucleated Red Blood Cells % 0 %; Platelet Count 295 10^3/cmm (157-399); Red Blood Count 4.73 10^6/uL (3.85-5.65); Red Cell Distribution Width 12.4 % (12.1-15.1); White Blood Count 13.47 10^3/uL (3.29-11.43)
[2024-03-13 20:37] VITALS: BP 207/131; PULSE 74; RESP 18; O2SAT 96
[2024-03-13 21:01] VITALS: BP 195/152; PULSE 83; RESP 18; O2SAT 98
--- NOTE | 2024-03-13 21:02 | ED_ITS ---
HPI - Neck Pain/Injury 2 General: Chief Complaint: Neck Pain/Injury Stated Complaint: Neck Pain,Dizzieness,Upper abd pain Time Seen by Provider: 03/13/24 18:56 History of Present Illness: 58-year-old female who presents to the e mergency room complaining of neck pain with elevated difficulty [place] neck symptoms she has dizziness or provide Tylenol pain. Nausea vomiting some cough. Although she states began after she turns her head a little bit. No dysuria urgency or frequency no vomiting or diarrhea. Related Data Home Medications Medication Instructions Recorded Confirmed acetaminophen 325 mg capsule 325 mg PO QID PRN Pain 01/25/22 03/12/24 (Tylenol) lynmtavy-usa-bmomc ac 400 1 tab PO DAILY 01/25/22 03/12/24 mcg-calcium carb 500 mg-vit K1 20 mcg tablet (Women's 50 Plus Multivitamin) paroxetine HCl 20 mg tablet 20 mg PO DAILY 01/25/22 03/12/24 calcium citrate 250 mg PO DAILY 07/04/22 03/12/24 ferrous sulfate 324 mg (65 mg 324 mg PO DAILY 07/04/22 03/12/24 iron) tablet,delayed release magnesium oxide 400 mg PO DAILY 07/04/22 03/12/24 omega 7-awf-glx-fish oil 100 1 cap PO BID 07/04/22 03/12/24 mg-160 mg-1,000 mg capsule (Fish Oil) amlodipine 5 mg tablet 10 mg PO DAILY 01/15/23 03/12/24 potassium 99 mg tablet 99 mg PO DAILY 04/12/23 03/12/24 progesterone micronized 100 mg 100 mg PO QAM 10/23/23 03/12/24 capsule Previous Rx's Medication Instructions Recorded atorvastatin 40 mg tablet 40 mg PO DAILY #90 tabs 01/21/23 hydrochlorothiazide 25 mg tablet 25 mg PO DAILY #30 tabs 04/12/23 carvedilol 6.25 mg tablet 6.25 mg PO BID #90 tabs 11/12/23 meclizine 25 mg tablet 25 mg PO DAILY PRN motion sickness 03/12/24 #20 tabs ciprofloxacin HCl 500 mg tablet 500 mg PO BID #14 tabs 03/13/24 (Cipro) meclizine 25 mg tablet 25 mg PO QID PRN dizziness #20 tabs 09/13/24 promethazine 25 mg tablet 25 mg PO Q6H PRN nausea and 03/13/24 vomiting #20 tabs Allergies Allergy/AdvReac Type Severity Reaction Status Date / Time No Known Allergies Allergy Verified 03/13/24 18:32 Review of Systems 2 Const: Denies: fever(s) or chills Card: Denies: chest pain Resp: Denies: dyspnea GI: Denies: abdominal pain : Denies: dysuria, urinary frequency or urinary urgency Musc: Denies: neck pain or back pain Skin/Breast: Denies: rash PFSH ED 2 PFSH: Medical History Hyperlipidemia Hypertension Tubal Surgical History Hx of cholecystectomy S/P tubal ligation S/P knee replacement Family History Mother Cervical cancer Social History Smoking and tobacco/nicotine status: never used tobacco/nicotine Second hand smoke exposure: No Alcohol intake: never Substance/Drug Use: never Physical Exam 2 Const: GENERAL APPEARANCE: cooperative ORIENTATION/CONSCIOUSNESS: Yes awake, Yes oriented to person, Yes oriented to place and Yes oriented to time HENMT: COMMON NORMALS: normocephalic, atraumatic and hearing grossly normal bilaterally HEAD & SCALP: normocephalic and atraumatic Resp: COMMON NORMALS: normal respiratory effort, No retractions, No use of accessory muscles and clear to auscultation bilaterally AUSCULTATION: clear to auscultation bilaterally Cardio: COMMON NORMALS: regular rate, regular rhythm and No murmurs present (Cardio) RATE: regular rate RHYTHM: regular rhythm GI: COMMON NORMALS: Soft to palpation and No hepatosplenomegaly present A USCULTATION: Yes normoactive bowel sounds PALPATION: Yes Soft to palpation, No Tenderness to palpation present (GI), No Guarding due to palpation present (GI) and Yes No hepatosplenomegaly present Extremity: COMMON NORMALS: normal to inspection, capillary refill normal, no clubbing, cyanosis or edema, no calf tenderness and no pedal edema Neuro: SENSORIUM/ORIENTATION: Yes oriented to person, Yes oriented to place and Yes oriented to time Skin: COMMON NORMALS: no rashes or lesions noted GENERAL SKIN EXAM: no rashes or lesions noted Course 2 Vital Signs: Vital signs: Vital Signs Temperature 98.3 F 03/13/24 18:27 Pulse Rate 69 03/13/24 23:36 Respiratory Rate 16 03/13/24 23:36 Blood Pressure 167/93 03/13/24 23:36 Pulse Oximetry 97 03/13/24 23:36 Oxygen Delivery Me thod Room Air 03/13/24 21:41 MDM - Neck Pain/Injury Medical Decision Making Labs and imaging reviewed. Patient does have a cystitis. No acute findings on the CT. Her neck range of motion is actually fairly good there is no trauma involved she did articulate some vertebrae earlier which seems to have more musculoskeletal pain no recent injuries falls or other trauma was reported. I think she does have some labyrinthitis I did examine her ears TMs are clear bilaterally she has reproducible dizziness with movement of her head. Will discharge her home with Cipro for her cystitis she was given a dose of Rocephin here. She can also use promethazine or meclizine for her dizziness. She is feeling somewhat better after fluids recheck with her primary care doctor if not improving Lab Data 03/13/24 20:04 03/13/24 20:04 Radiology Impressions Chest X-Ray 03/13/24 19:47 IMPRESSION: No acute findings. Head CT 03/13/24 19:47 IMPRESSION: 1. No acute intracranial findings. 2. Left anterior frontal parafalcine and right frontal vertex calcified meningiomas versus osteomas. Abdomen/Pelvis CT 03/13/24 22:01 IMPRESSION: 1. No acute findings. 2. Status post prior cholecystectomy. COMMENTS: Consistent with the [employer]'s Incidental Findings Committee white paper (J Am Jarrett Radiol 2018): Any incidental renal lesion less than 1 cm or classified as too small to characterize, or any incidental cystic renal lesion characterized as simple-appearing, is likely benign. No follow-up imaging is recommended for these lesions per consensus recommendations based on imaging criteria. Laboratory Results WBC 13.47 10^3/uL (3.29-11.43) H 03/13/24 20:04 RBC 4.73 10^6/uL (3.85-5.65) 03/13/24 20:04 Hgb 14.80 g/dL (11.27-16.99) 03/13/24 20:04 Hct 44.1 % (36-47) 03/13/24 20:04 MCV 93.2 fl (85-98) 03/13/24 20:04 MCH 31.3 pg (27-33) 03/13/24 20:04 MCHC 33.6 g/dL (30-55) 03/13/24 20:04 RDW 12.4 % (12.1-15.1) 03/13/24 20:04 Plt Count 295 10^3/cmm (157-399) 03/13/24 20:04 MPV 8.9 fL (7.4-10.4) 03/13/24 20:04 Neut % (Auto) 72.1 % 03/13/24 20:04 Lymph % (Auto) 19.5 % 03/13/24 20:04 [place] % (Auto) 6.4 % 03/13/24 20:04 Eos % (Auto) 1.3 % 03/13/24 20:04 Baso % (Auto) 0.5 % 03/13/24 20:04 Neut # (Auto) 9.70 10^3/uL (1.8-7.7) H 03/13/24 20:04 Lymph # (Auto) 2.6 10^3/uL (0.8-4.8) 03/13/24 20:04 [place] # (Auto) 0.9 10^3/uL (0.2-0.9) 03/13/24 20:04 Eos # (Auto) 0.2 10^3/uL (0.0-0.8) 03/13/24 20:04 Baso # (Auto) 0.1 10^3/uL (0.0-0.1) 03/13/24 20:04 Nucleated RBC % (auto) 0 % 03/13/24 20: Nucleated RBCs # 0.0 /100WBC 03/13/24 20:04 Sodium 141 mmol/L (136-145) 03/13/24 20:04 Potassium 3.4 mmol/L (3.5-5.1) L 03/13/24 20:04 Chloride 105 mmol/L (98-107) 03/13/24 20:04 Carbon Dioxide 26 mmol/L (22-29) 03/13/24 20:04 Anion Gap 13.4 (5-19) 03/13/24 20:04 BUN 13 mg/dL (6-20) 03/13/24 20:04 Creatinine 0.8 mg/dL (0.5-0.9) 03/13/24 20:04 GFR Calculation 73.4 mL/min (90-130) L 03/13/24 20:04 Glucose 106 mg/dL (65-115) 03/13/24 20:04 Calculated Osmolality 293 mOsm/kg (285-295) 03/13/24 20:04 Lactic Acid 0.9 mmol/L (0.5-2.2) 03/13/24 20:04 Calcium 9.4 mg/dL (8.5-10.5) 03/13/24 20:04 Total Bilirubin 1.3 mg/dL (0.15-1.2) H 03/13/24 20:04 AST 24 U/L (0-32) 03/13/24 20:04 ALT 24 U/L (0-33) 03/13/24 20:04 Alkaline Phosphatase 90 U/L (35-105) 03/13/24 20:04 Total Protein 6.5 g/dL (6.6-8.7) L 03/13/24 20:04 Albumin 4.2 g/dL (3.5-5.2) 03/13/24 20:04 Globulin 2.3 g/dL (1.3-4.6) 03/13/24 20:04 Lipase 28 U/L (13-60) 03/13/24 20:04 Urine Color Yellow (Yellow) 03/13/24 20:56 Urine Appearance Slightly cloudy (CLEAR) 03/13/24 20:56 Urine pH 5 (5-7) 03/13/24 20:56 Ur Specific [place] 1.020 (1.005-1.030) 03/13/24 20:56 Urine Protein 1+ (Negative) H 03/13/24 20:56 Urine Glucose (UA) Norm (Normal) 03/13/24 20:56 Urine Ketones 1+ (Negative) H 03/13/24 20:56 Urine Blood 3+ (Negative) H 03/13/24 20:56 Urine Nitrate Positive (Negative) A 03/13/24 20:56 Urine Bilirubin 1+ (Negative) H 03/13/24 20:56 Urine Urobilinogen 1 mg/dL (Negative) H 03/13/24 20:56 Ur Leukocyte Esterase 1+ (Negative) H 03/13/24 20:56 Urine RBC 5-10 /hpf (0-2) H 03/13/24 20:56 Urine WBC 10-15 /hpf (0-5) H 03/13/24 20:56 Ur Squamous Epith Cells 10-15 /hpf (0-5) H 03/13/24 20:56 Amorphous Sediment Not Reportable 03/13/24 20:56 Urine Bacteria 2+ /hpf (NONE) H 03/13/24 20:56 Urine Mucus 2+ /hpf 03/13/24 20:56 Coronavirus (PCR) Negative (Negative) 03/13/24 20:35 Influenza A (PCR) Negative (Negative) 03/13/24 20:35 Influenza Type B (PCR) Negative (Negative) 03/13/24 20:35 RSV (PCR) Negative (Negative) 03/13/24 20:35 All radiology interpretation(s) finalized by discharge Discharge Plan Discharge Patient Disposition: Home Clinical Impression: Cystitis, Labyrinthitis, Cervicalgia Condition: Stable Prescriptions: New Cipro 500 mg tablet 500 mg PO BID Qty: 14 0RF promethazine 25 mg tablet 25 mg PO Q6H PRN (Reason: nausea and vomiting) Qty: 20 0RF meclizine 25 mg tablet 25 mg PO QID PRN (Reason: dizziness) Qty: 20 0RF No Action amlodipine 5 mg tablet 10 mg PO DAILY progesterone micronized 100 mg capsule 100 mg PO QAM Rx Instructions: off 7 days; repeat cycle calcium citrate 250 mg calcium tablet 250 mg PO DAILY ferrous sulfate 324 mg (65 mg iron) tablet,delayed release (DR/EC) 324 mg PO DAILY magnesium oxide 400 mg magnesium capsule 400 mg PO DAILY hydrochlorothiazide 25 mg tablet 25 mg PO DAILY Qty: 30 6RF potassium 99 mg tablet 99 mg PO DAILY meclizine 25 mg tablet 25 mg PO DAILY PRN (Reason: motion sickness) Qty: 20 0RF atorvastatin 40 mg tablet 40 mg PO DAILY Qty: 90 1RF carvedilol 6.25 mg tablet 6.25 mg PO BID Qty: 90 0RF Rx Instructions: PATIENT MUST MAKE APPOINTMENT AND BE SEEN FOR FURTHER REFILLS must administer with a meal/food paroxetine HCl 20 mg Tablet 20 mg PO DAILY acetaminophen [Tylenol] 325 mg Capsule 325 mg PO QID PRN (Reason: Pain) Women's 50 Plus Multivitamin 400 mcg-500 mg calcium-20 mcg Tablet 1 tab PO DAILY Fish Oil 100-160-1,000 mg capsule 1 cap PO BID Discharge Orders: Discharge ED (Routine); Ordered 03/13/24 Ordered By: Valerie Canales Referrals: Arturo Hahn MD [Primary Care Provider] - Discharge Diet: Usual diet Discharge Activity: Resume usual activity Patient Instructions: Opioid Safety, Pain Management Activity Restrictions/Additional Instructions: Thank you for choosing [facility] for your healthcare needs today. It is very important that you follow up as instructed or that you return to the Emergency Department should you have concerns or if your condition changes or worsens in any way. You are seen emergency room explained abdominal discomfort as well as dizziness. On exam showed you have a labyrinthitis. Moving your head will increase the dizziness you can use either promethazine and meclizine to decrease your symptoms. You are also noted to have a bladder infection. You are given a dose of IV antibiotics emergency room and should start oral antibiotics 1 pill twice a day for 1 week tomorrow. Coding Level of Care Code ED Destaticizer Feeder for Tony Carreon
[2024-03-13 21:19] LABS: Alanine Aminotransferase 24 U/L (0-33); Albumin Level 4.2 g/dL (3.5-5.2); Alkaline Phosphatase 90 U/L (35-105); Anion Gap 13.4 (5-19); Aspartate Amino Transferase 24 U/L (0-32); Blood Urea Nitrogen 13 mg/dL (6-20); Calcium 9.4 mg/dL (8.5-10.5); Carbon Dioxide 26 mmol/L (22-29); Chloride 105 mmol/L (98-107); Creatinine Clr Calc Pharmacy 87.9807; Globulin 2.3 g/dL (1.3-4.6); Glomerular Filtration Rate 73.4 mL/min (90-130); Glucose 106 mg/dL (65-115); Osmolality Calculated 293 mOsm/kg (285-295); Potassium 3.4 mmol/L (3.5-5.1); Sodium 141 mmol/L (136-145); Total Bilirubin 1.3 mg/dL (0.15-1.2); Total Protein 6.5 g/dL (6.6-8.7)
[2024-03-13 21:20] LABS: Lactic Sepsis W/Reflex 0.9 mmol/L (0.5-2.2)
[2024-03-13 21:29] LABS: Add Urine Culture? No; Add Urine Microscopic? YES; Bacteria Urine 2+ /hpf; Bilirubin Urine 1+ (Negative); Blood Urine 3+ (Negative); Glucose Urine UA Norm (Normal); Ketones Urine 1+ (Negative); Leukocyte Esterase Urine 1+ (Negative); Mucus Urine 2+ /hpf; Nitrate Urine Positive (Negative); Protein Urine 1+ (Negative); Urine Appearance Slightly Cloudy (CLEAR); Urine Color Yellow (Yellow); Urobilinogen Urine 1 mg/dL (Negative); pH Urine 5 (5-7)
[2024-03-13 21:30] LABS: Covid PCR NEGATIVE (Negative); Influenza A NEGATIVE (Negative); Influenza B NEGATIVE (Negative); Respiratory Syncytial Virus Ce NEGATIVE (Negative)
[2024-03-13] MEDS: sodium chloride 0.9% 1,000 ML 999 ML IV (21:38)
[2024-03-13] MEDS: cefTRIAXone 1,000 mg SDV 1000 MG IVP (21:40)
[2024-03-13 21:41] VITALS: BP 163/89; PULSE 69; RESP 16; O2SAT 96
--- NOTE | 2024-03-13 22:01 | CTR_ITS ---
PROCEDURE INFORMATION: Exam: CT Abdomen And Pelvis With Contrast Exam date and time: 03/13/2024 10:25 PM Age: 58 years old Clinical indication: Abdominal pain; Localized; Prior surgery; Surgery date: 6+ months; Surgery type: Gb. Tubal. Patient HX: C/O upper abd pain. TECHNIQUE: Imaging protocol: Computed tomography of the abdomen and pelvis with contrast. Radiation optimization: All CT scans at this facility use at least one of these dose optimization techniques: automated exposure control; mA and/or kV adjustment per patient size (includes targeted exams where dose is matched to clinical indication); or iterative reconstruction. Contrast material: OMNI 350; Contrast volume: 100 ml; Contrast route: INTRAVENOUS (IV); COMPARISON: CR (CHEST, ) 03/13/2024 8:47 PM RADIATION DOSE METRICS: Total DLP (mGy-cm): 1025.13 FINDINGS: Lungs: Bibasilar atelectasis. Liver: The liver is unremarkable. Gallbladder and biliary ducts: There has been a cholecystectomy. No biliary ductal dilatation. Pancreas: The pancreas is unremarkable. Spleen: The spleen is unremarkable. Adrenal glands: The adrenal glands are unremarkable. Kidneys and ureters: Punctate hypodensities within bilateral kidneys, too small to properly characterize. The kidneys are otherwise unremarkable. Stomach and bowel: There is no bowel wall thickening. No bowel obstruction. Appendix: A normal appendix is identified. Intraperitoneal space: No significant peritoneal free fluid. No free peritoneal air. Vasculature: The vasculature demonstrates diffuse moderate atherosclerotic calcification. No aneurysm. Lymph nodes: No enlarged lymph nodes by size criteria. Urinary bladder: The bladder is unremarkable. Reproductive: Uterus is unremarkable. No suspicious adnexal lesion seen. Bones/joints: The spine demonstrates mild degenerative changes at multiple levels. Soft tissues: Soft tissues are unremarkable as visualized. CT/CT abdomen pelvis w con* [id number] IMPRESSION: 1. No acute findings. 2. Status post prior cholecystectomy. COMMENTS: Consistent with the [employer]'s Incidental Findings Committee white paper (J Am Jarrett Radiol 2018): Any incidental renal lesion less than 1 cm or classified as too small to characterize, or any incidental cystic renal lesion characterized as simple-appearing, is likely benign. No follow-up imaging is recommended for these lesions per consensus recommendations based on imaging criteria.
[2024-03-13 22:33] LABS: Lipase 28 U/L (13-60)
[2024-03-13] MEDS: iohexol 350 mg/mL 500 mL Btl (per mL) IV (22:34)
[2024-03-13 23:36] VITALS: BP 167/93; PULSE 69; RESP 16; O2SAT 97
== END 2024-03-13 23:13 | disposition home or self-care (01) ==
PROVIDERS: Family Medicine; Emergency Provider Physician Assistant; PCP Family Medicine
DX: M54.2 Cervicalgia (principal); N30.90 Cystitis, unspecified without hematuria; H83.09 Labyrinthitis, unspecified ear; I10 Essential (primary) hypertension; E78.5 Hyperlipidemia, unspecified
CPT/HCPCS: 0241U; 36415; 70450; 71045; 74177; 80053; 81001; 83605; 83690; 85025; 87040; 93005; 96361; 96374; 99285; J0696; J7030

== ENCOUNTER → 2024-03-30 13:12 | Outpatient (BNVA) | payer MEDICARE, MEDICAID, SELFPAY | PROVIDERS: PCP Family Medicine; Visit Provider Internal Medicine | DX: R07.9 Chest pain, unspecified (principal); R06.02 Shortness of breath; I10 Essential (primary) hypertension; E78.5 Hyperlipidemia, unspecified; E66.01 Morbid (severe) obesity due to excess calories; Z68.41 Body mass index [BMI] 40.0-44.9, adult; M17.0 Bilateral primary osteoarthritis of knee; Z87.891 Personal history of nicotine dependence | CPT/HCPCS: 99214 ==

== ENCOUNTER 2024-04-16 12:53 | Outpatient (CLI) | payer MEDICARE, SELFPAY ==
--- NOTE | 2024-04-16 12:59 | MM_ITS ---
WS: [id number] Bilateral screening 3D tomosynthesis digital mammogram, 04/16/2024 2:01 PM Clinical Data: SCREENING Comparison: 10/13/2021, 07/19/2017, 04/13/2016, 10/15/2014, 10/07/2013, 03/26/2013, 02/19/2013, 07/19/2008. Findings: No spiculated masses or clustered calcifications are seen. There are no secondary signs of carcinoma . MM/MM scr BI tomosynthesis [id number] Impression: Negative bilateral mammogram unchanged. Recommend annual screening mammograms. BIRADS: 1 - Negative. FOLLOW UP: 1 Year Follow-up DENSITY: The breasts are almost entirely fatty. The CAD order checker packer processer was used
== END 2024-04-16 12:54 | disposition home or self-care (01) ==
LOC: RAD 12:54
PROVIDERS: PCP Family Medicine; Visit Provider Family Medicine
DX: Z12.31 Encounter for screening mammogram for malignant neoplasm of breast (principal)
CPT/HCPCS: 77063; 77067

== ENCOUNTER 2024-04-22 09:03 | Outpatient (CLI) | payer MEDICARE, SELFPAY ==
--- NOTE | 2024-04-22 09:30 | USCV_ITS ---
Nicole Villa Age: 58 Gender: F : 1965 Exam Date: 04/22/2024 09:26 Ordering Phys: Everardo Agarwal M.D ([email or web address]) Technologist: CT Exam Location: [facility] – [place] Indication: sob BP: 170 / 90 HR: 66 Rhythm: Sinus Technical Quality: Adequate MEASUREMENTS (Male / Female) Normal Values 2D ECHO LVOT Diameter 2.1 cm LV Ejection Fraction MOD 4C 64.2 % LV Ejection Fraction MOD 2C 59.6 % LV Ejection Fraction 2C AL 63.1 % LA Diameter 3.6 cm RA Systolic Volume 4C AL 47.3 ml RA Systolic Volume 4C MOD 45.2 ml LA Sys Volume AL 39.6 cm cubed LA Sys Volume Index AL 17.2 cm cubed/m squared Aorta at Sinotubular Diameter 2.2 cm IVC Diameter 1.5 cm DOPPLER AV Peak Velocity 153.0 cm/s LVOT Peak Velocity 117.0 cm/s AV Area Cont Eq vti 3.2 cm squared AV Area Cont Eq pk 2.8 cm squared MV Area PHT 4.0 cm squared Mitral E to A Ratio 1.0 TR Peak Velocity 152.0 cm/s TR Peak Gradient 9.2 mmHg TV Peak E Velocity 66.0 cm/s Right Atrial Pressure 3.0 mmHg Pulmonary Artery Systolic Pressu 12.2 mmHg PV Peak Velocity 104.5 cm/s FINDINGS Left Ventricle Normal left ventricular size and systolic function, EF 60%.mild left ventricular hypertrophy. No regional wall motion abnormalities. Right Ventricle The right ventricle is normal in size and function. Right Atrium The right atrium is normal in size. Left Atrium The left atrium is normal in size. Mitral Valve Trace mitral valve regurgitation. Aortic Valve Thickened aortic valve. Tricuspid Valve No gross abnormalities noted Pulmonic Valve Pulmonic valve not well visualized. Pericardium Normal pericardium without effusion. Aorta Normal ascending aorta dimension. IVC The inferior vena cava appears normal. CONCLUSIONS Normal left ventricular size and systolic function, EF 60%.mild left ventricular hypertrophy. No regional wall motion abnormalities. Trace mitral valve regurgitation. Normal cardiac chamber sizes. No gross valvular abnormalities noted. There is no pericardial effusion. There are no intracardiac masses. No similar previous studies are available for comparison Dr Connie Ivy MD FAC (Electronically Signed) Final Date: 25 April 2024 17:38 S
== END 2024-04-22 09:04 | disposition home or self-care (01) ==
LOC: RAD 09:04
PROVIDERS: PCP Family Medicine; Visit Provider Internal Medicine
DX: I35.2 Nonrheumatic aortic (valve) stenosis with insufficiency (principal); R07.9 Chest pain, unspecified; R06.02 Shortness of breath
CPT/HCPCS: 93306

== ENCOUNTER 2024-05-19 11:52 | Emergency (ER) | payer MEDICARE, SELFPAY ==
[2024-05-19 12:11] VITALS: BP 140/82; PULSE 80; RESP 16; TEMP 36.8; O2SAT 97; BMI 43.9
[2024-05-19 13:09] LABS: Basophils # 0.1 10^3/uL (0.0-0.1); Basophils % 0.5 %; Eosinophils # 0.1 10^3/uL (0.0-0.8); Eosinophils % 1.2 %; Lymphocytes # 2.4 10^3/uL (0.8-4.8); Lymphocytes % 21.7 %; Mean Corpuscular HGB Conc 32.9 g/dL (30-55); Mean Corpuscular Hemoglobin 30.4 pg (27-33); Mean Corpuscular Volume 92.3 fl (85-98); Mean Platelet Volume 9.1 fL (7.4-10.4); Monocytes # 0.8 10^3/uL (0.2-0.9); Monocytes % 7.4 %; Neutrophils % 68.9 %; Nucleated Red Blood Cells % 0 %; Platelet Count 407 10^3/cmm (157-399); Red Blood Count 4.44 10^6/uL (3.85-5.65); Red Cell Distribution Width 12.5 % (12.1-15.1); White Blood Count 11.03 10^3/uL (3.29-11.43)
[2024-05-19 13:22] LABS: HCG, Serum Qual Negative (Negative)
[2024-05-19 13:23] LABS: INR 0.98 (0.8-1.2)
[2024-05-19 13:24] LABS: Partial Thromboplastin Time 29.4 SECONDS (23.9-36.7)
[2024-05-19 13:37] LABS: Anion Gap 12.5 (5-19); Blood Urea Nitrogen 14 mg/dL (6-20); Calcium 9.7 mg/dL (8.5-10.5); Carbon Dioxide 29 mmol/L (22-29); Chloride 103 mmol/L (98-107); Glomerular Filtration Rate 56.7 mL/min (90-130); Glucose 119 mg/dL (65-115); Osmolality Calculated 292 mOsm/kg (285-295); Potassium 4.5 mmol/L (3.5-5.1); Sodium 140 mmol/L (136-145); Thyroid Stimulating Hormone 0.59 uIU/mL (0.27-4.20)
[2024-05-19 13:38] LABS: Creatinine Clr Calc Pharmacy 70.3846
== END 2024-05-19 15:44 | disposition left against medical advice (07) ==
PROVIDERS: Emergency Medicine; Emergency Provider Family Medicine; PCP Family Medicine
DX: Z53.21 Procedure and treatment not carried out due to patient leaving prior to being seen by health care provider (principal)
CPT/HCPCS: 36415; 80048; 84443; 84703; 85025; 85610; 85730

== ENCOUNTER 2025-03-08 09:46 | Outpatient (CLI) | payer MEDICARE, SELFPAY | END 2025-03-08 09:47 | disposition home or self-care (01) | LOC: SLEEP 09:50 | PROVIDERS: PCP Family Medicine; Visit Provider Internal Medicine Pulmonary Disease | DX: G47.33 Obstructive sleep apnea (adult) (pediatric) (principal) | CPT/HCPCS: G0399 ==

== ENCOUNTER → 2025-04-01 14:21 | Outpatient (BNVA) | payer MEDICARE, SELFPAY | PROVIDERS: PCP Family Medicine; Visit Provider Internal Medicine | DX: R06.02 Shortness of breath (principal); I10 Essential (primary) hypertension; E78.5 Hyperlipidemia, unspecified; E66.01 Morbid (severe) obesity due to excess calories; Z68.41 Body mass index [BMI] 40.0-44.9, adult; M17.0 Bilateral primary osteoarthritis of knee; G47.33 Obstructive sleep apnea (adult) (pediatric); Z87.891 Personal history of nicotine dependence | CPT/HCPCS: 99214 ==

== ENCOUNTER 2025-05-30 20:54 | Emergency (ER) | payer MEDICARE, SELFPAY ==
[2025-05-30 20:55] VITALS: BP 130/64; PULSE 76; RESP 16; TEMP 36.8; O2SAT 98
--- OUTSIDE RECORDS SUMMARY | 2025-05-30 21:00 | XMS_ITS | Continuity of Care Document ---
Author Organization JUAN Tee Olvera [facility], LCharly, [facility] ([facility]) Address [address] [place] [address] Care Team Providers Care Heater Helper Forge Name Role Phone BELTRAN HAHN Primary Care Provider [phone] Assessment No assessment recorded. Plan of Treatment Reminders Order Date Submit Date Provider Last Modified By Organization Details Last Modified Time Details Appointments None recorded. Lab culture, urine 2024 025 [facility], [address] [place] [address], [facility] [address] [place], [address], 5 11:03:16 urinalysis, dipstick 2024 025 [facility] ([facility]), [address] [place], [address], 13:31:27 Referral None recorded. Procedures None recorded. Surgeries None recorded. Imaging None recorded. Medication Orders nitrofurant oin monohydrate /macrocryst als 100 mg capsule 2024 025 [facility] #[id number], [address], [address], [address], 5 13:37:21 phenazopyri dine 200 mg tablet 2024 025 [facility] #[id number], [address], [address], [address], 05:01:16 Patient TargetsNo targets recorded. Patient InstructionsNo instructions recorded. Reason for Referral None Reported. Results Created Date Observation Date Name Description Value Unit Range Abnormal Flag Note LastModifiedBy Organization Detail LastModifiedTime 05/21/2005/24/2025 CULTU RE, URINE , ROUTI NE culture, urine, routine SEE NOTE abnormal CULTU RE, URINE , ROUTI NE Micro Numbe r: [id number] Test Statu s: Final Speci men Sourc e: Urine , clean catch Speci men Quali ty: Adequ ate Resul t: 50,00 0-99, 000 CFU/m L of Esche romel a coli E.col i ----- ----- ----- - INT HUI AMOX/ CLAVU LANAT E S <=2 AMP/S ULBAC BYRNE S <=2 CEFAZ UMER NR <=1 2 CEFEP ANA S <=0.1 2 CEFTA ZIDIM E S <=0.5 CEFTR IAXON E S <=0.2 5 CIPRO FLOXA ALF S <=0.0 6 GENTA MICIN S <=1 IMIPE NEM S <=0.2 5 LEVOF LOXAC IN S <=0.1 2 MEROP ENEM S <=0.2 5 NITRO FURAN TOIN S <=16 PIP/T AZOBA CTAM S <=4 TRIME THOPR IM/SERRANO LFA S <=20 S = Susce ptibl e I = Inter media te R = Resis tant NS = Not susce ptibl e SDD = Susce ptibl e Dose Depen dent * = Not Teste d NR = Not Repor robyn NN = See Thera py Comme nts THERA PY COMME NTS Note 1: For infec tions other than uncom plica robyn UTI cause d by E. coli, K. pneum oniae or P. mirab ilis: Cefaz umer is resis tant if HUI > or = 8 mcg/m L. (Dist ingui shing susce ptibl e versu s inter media te for isola denise with HUI < or = 4 mcg/m L requi res addit ional testi ng.) Note 2: For uncom plica robyn UTI cause d by E. coli, K. pneum oniae or P. mirab ilis: Cefaz umer is susce ptibl e if HUI <32 mcg/m L and predi cts susce ptibl e to the oral agent s cefac nelda, cefdi radha, cefpo doxim e, cefpr ozil, cefur oxime , cepha lexin and lorac arbef . Not Available [facility] [address] [place], [address], 05/24/2025 11:03:16 05/21/20 25 05/21/2025 urina lysis , dipst ick Color Yellow Not Available [facility] ([facility]) [address] [place] [address], [address], 05/21/2025 13:17:51 05/21/20 25 05/21/2025 urina lysis , dipst ick Appearance Clear Not Available [facility] ( [facility] [address] [place] [address], [phone], 05/21/2025 13:17:51 05/21/20 25 05/21/2025 urina lysis , dipst ick Glucose Negati ve Not Available [facility] ([facility]) [address] [place] [address], [phone], 05/21/2025 13:17:51 05/21/20 25 05/21/2025 urina lysis , dipst ick Bilirubin Negati ve Not Available [facility] ([facility]) [address] [place], [address], 05/21/2025 13:17:51 05/21/20 25 05/21/2025 urina lysis , dipst ick Ketone Negati ve Not Available [facility] ([facility]) [address] [place] [address], [address], 05/21/2025 13:17:51 05/21/20 25 05/21/2025 urina lysis , dipst ick Specific Rice 1.030 Not Available [facility] ( [facility]) [address] [place], [address], 05/21/2025 13:17:51 05/21/20 25 05/21/2025 urina lysis , dipst ick Leukocytes Trace Not Available [facility] [address] [place], [address], 05/21/2025 13:17:51 05/21/20 25 05/21/2025 urina lysis , dipst ick Nitrite negati ve Not Available [facility] ([facility]) [address] [place], [address], 05/21/2025 13:17:51 05/21/20 25 05/21/2025 urina lysis , dipst ick Urobilinogen .2 Not Available [facility] ([facility]) [address] [place], [address], 05/21/2025 13:17:51 05/21/20 25 05/21/2025 urina lysis , dipst ick Protein 30 Not Available [facility] ([facility]) [address] [place], [address], 05/21/2025 13:17:51 05/21/20 25 05/21/2025 urina lysis , dipst ick pH 5.5 Not Available [facility] ([facility]) [address] [place], [address], 05/21/2025 13:17:51 05/21/20 25 05/21/2025 urina lysis , dipst ick Blood Negati ve Not Available [facility] ([facility]) [address] [place], [address], 05/21/2025 13:17:51 Result Notes None recorded. Problems Name Problem SNOMED Code Status Onset Date Resolution Date Notes Provider Name and Address Organization Details Recorded Time Sukumar azevedo hyperten orsalia 85062758 Active 2022 OLAMIDE silva [facility] 3 15:58:22 Hypercho lesterol emia 42000826 Active 2022 OLAMIDE silva [facility] 3 15:58:32 Gastriti s 9990092 Completed 202202/28/2023 Beltran Hahn MD [address] [place] [phone], [facility] 5 17:54:30 Arthriti s of knee 482424914 Active 2022 OLAMIDE silva [facility] 3 16:57:32 Insomnia 531538341 Active 2022 Beltran Hahn MD [address] [place] [phone], [facility] 3 12:17:39 Severe recurren t major depressi on without psychoti c features 77744144 Active 2023 Beltrna Hahn MD [address] [place] [phone], [facility] 4 16:07:16 Synoviti s and tenosyno vitis of joint of hand Active 2023 Beltran Hahn MD [address] [place] [phone], [facility] 4 16:12:49 Morbid obesity 926841385 Active 2023 Beltran Hahn MD [address] [place] [phone], [facility] 4 11:28:38 Pain of right shoulder joint [id number] 890395 Active 2023 Beltran Hahn MD [address] [place] [address], [phone], [facility] 4 16:12:17 Dental abscess 174481853 Active 2023 Beltran Hahn MD [address] [place] [phone], [facility] 4 17:19:49 Gastriti s 5349280 Active 2024 Beltran Hahn MD [address] [place] [phone], [facility] 5 17:54:30 Sleep apnea 60045786 Active 2024 CPAP started around 03/31/20 25 Carolina Zan [facility] 5 14:13:54 Obstruct sirisha sleep apnea syndrome 58206660 Active 2024 Dakshacely Page [facility] 5 12:34:59 Bilatera l headache 680351506 Active 2024 Beltran Hahn MD [address] [place] [phone], [facility] 5 15:29:26 Osteoart hritis 562274322 Active 2024 Beltran Hahn MD [address] [place] [phone], [facility] 5 15:29:27 Problem Notes None recorded. Procedures Surgical History Date Name Laterality Status Provider Name and Address Organization Details Recorded Time Tubal Ligation completed [facility] 12:11:38 cholecystectomy completed [facility]2024 12:11:44 Imaging Results None recorded. Procedure Notes None recorded. Medical Equipment None Reported. Allergies No known drug allergies Medications Name Sig Start Date Stop Date Status Note LastModified by Organization Details LastModified Time celecoxib 200 mg capsule 03/23 completed Not Available Not Available Not Available atorvasta tin 40 mg tablet TAKE 1 TABLET BY MOUTH DAILY 2024 active Not Available Not Available Not Avai lable carvedilo l 6.25 mg tablet Take 1 tablet twice a day by oral route for 100 days. 2024 active Not Available Not Available Not Avai lable atorvasta tin 20 mg tablet 03/23 completed Not Available Not Available Not Available trazodone 50 mg tablet Take 1 tablet every day by oral route for 90 days. 2024 active Not Available Not Available Not Avai lable meloxicam 15 mg tablet TAKE 1 TABLET BY MOUTH EVERY DAY active Not Available Not Available No t Available phenazopy ridine 200 mg tablet Take 1 tablet 3 times a day by oral route for 2 days. 05/30 completed Not Available Not Available Not Available lisinopri l 20 mg tablet TAKE 1 TABLET BY MOUTH DAILY 2024 active Not Available Not Available Not Avai lable prednison e 20 mg tablet TAKE ONE TABLET BY MOUTH EVERY DAY FOR FIVE DAYS 03/23 completed Not Available Not Available Not Available clopidogr el 75 mg tablet 10/11 completed Not Available Not Available Not Available amlodipin e 5 mg tablet 12/13 completed Not Available Not Available Not Available ciproflox acin 500 mg tablet TAKE ONE TABLET BY MOUTH TWICE DAILY 04/01 completed Not Available Not Available Not Available omeprazol e 40 mg capsule,d elayed release Take 1 capsule every day by oral route for 90 days. 2024 active Not Available Not Available Not Avai lable tramadol 50 mg tablet TAKE 1 TABLET BY MOUTH EVERY 6 HOURS 01/08 completed Not Available Not Available Not Available amoxicill in 500 mg tablet TAKE 1 TABLET BY MOUTH THREE TIMES A DAY UNTIL GONE 12/15 completed Not Available Not Available Not Available methocarb nicole 750 mg tablet TAKE 1 TABLET BY MOUTH 3 TIMES DAILY NEEDED 2024 active Not Available Not Available Not Avai lable meclizine 25 mg tablet TAKE ONE TABLET BY MOUTH DAILY NEEDED FOR motion sickness 03/23 completed Not Available Not Available Not Available amlodipin e 10 mg tablet TAKE 1 TABLET BY MOUTH DAILY 2024 active Not Available Not Available Not Avai lable paroxetin e 20 mg tablet TAKE ONE TABLET BY MOUTH AT BEDTIME 12/15 completed Not Available Not Available Not Available promethaz ine 25 mg tablet TAKE ONE TABLET BY MOUTH EVERY 6 HOURS as needed for nausea AND vomiting 03/23 completed Not Available Not Available Not Available progester one micronize d 200 mg capsule TAKE ONE CAPSULE BY MOUTH Every night AT BEDTIME 12/15 completed Not Available Not Available Not Available gabapenti n 300 mg capsule TAKE ONE CAPSULE BY MOUTH THREE TIMES DAILY 03/23 completed Not Available Not Available Not Available hydrochlo rothiazid e 25 mg tablet TAKE 1 TABLET BY MOUTH ONCE DAILY 2024 active Not Available Not Available Not Avai lable amoxicill in 875 mg-potass ium clavulana te 125 mg tablet TAKE 1 TABLET BY MOUTH EVERY 12 HOURS 12/15 completed Not Available Not Available Not Available bupropion HCl XL 150 mg 24 hr tablet, extended release TAKE 1 TABLET BY MOUTH EVERY DAY active Not Available Not Available No t Available nitrofura ntoin monohydra te/macroc rystals 100 mg capsule TAKE 1 CAPSULE BY MOUTH EVERY 12 HOURS FOR 5 DAYS active Not Available Not Available No t Available fenofibra te 160 mg tablet TAKE 1 TABLET BY MOUTH EVERY DAY FOR 30 DAYS active Not Available Not Available No t Available atorvasta tin at bedtime 03/01 completed Recorded 02/21/20 3:05PM by Beltran Hahn MD, Office Visit; Refill Quantity : 90; Tablet; Not Available Not Available Not Available meloxicam daily 03/21 completed 80676; Recorded 09/12/19 6:54AM by Olamide Brantley (Authori oliverd through Beltran Hahn MD), Refill Request; Refill Quantity : 0; Not Available Not Available Not Available Aspirin EC daily 03/21 completed 0; Recorded 08/28/19 1:58PM by Cathy Gonzalez al Summary; Not Available Not Available Not Available Neurontin three times daily 03/23 completed Recorded 02/21/20 3:05PM by Beltran Hahn MD, Office Visit; Refill Quantity : 270; Capsule; Not Available Not Available Not Available multivita min 1 tab every day 01/08 completed Not Available Not Available Not Available diclofena c 1 % topical gel APPLY 2 GRAMS TO THE AFFECTED AREA(S) BY TOPICAL ROUTE 4 TIMES PER DAY 01/08 completed Not Available Not Available Not Available amlodipin e besylate (bulk) daily 03/01 completed Recorded 08/23/19 9:15AM by Beltran Hahn MD, Office Visit; Refill Quantity : 90; Tablet; Not Available Not Available Not Available testoster one 100 mg implant pellet Take by implanta tion route. 05/13 completed Pt. is not sure of the mg. 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 31 g 99 % 66 /min 98.9 [degF] 130/78 mm[Hg] Heidi Hutchison [facility] 13:22:08 Social History Question Answer Notes LastModified by Organizat ion Details LastModified Time Tobacco Smoking Status Never Smoker VALENTÍN silva [facility] 04/01/2024 12:11:21 What Is Your Level Of Caffeine Consumption? Occasional [email or web address] Information not available 12/15/2024 Which Illicit Or Recreational Drugs Have You Used? Marijuana Information not available 12/15/2024 What Type Of Marijuana Have You Used? Smoke [email or web address] Information not available 04/19/2025 Do You Or Have You Ever Used Marijuana? Current Every Day User [email or web address] Information not available 04/19/2025 What Was The Date Of Your Most Recent Tobacco Screening? 05/19/2025 Information not available 05/19/2025 Was Your Marijuana Use Recreational Or Medical? Medical [email or web address] Information not available 04/19/2025 Sex: Unknown Functional Status Question Answer Note LastModified by Organizat ion Details LastModified Time Do you use any illicit or recreational drugs? Yes [email or web address] Information not available 12/15/2024 What is your level of alcohol consumption? None [email or web address] Information not available 12/15/2024 Mental Status None recorded. Family History Nothing Reported Notes:Adopted. No HX Medical History Condition Response Coronary Artery Disease N Other N Gout N Kidney Stones N Blood Diseases N Hyperthyroidism N Breast Cancer N Blood Transfusion N Depression Y Hypothyroidism N Lung Disease N COPD N Developmental or Behavioral Disorders N Defects or Inherited Disease N Breast Problem N Difficulty Swallowing N Anesthesia Complications N Meniere's disease N Anxiety Disorder N Muscle, Joint, or Bone Problems N Vision or Eye Problems N Arthritis N Polyps N Infertility N Cancer N Varicosities N Stroke N Endometriosis N Bladder or Kidney Problems N High Cholesterol Y Liver Disease N Headaches N Fibromyalgia N Kidney Disease N Allergies/Hayfever N Heart Problems N Ear or Hearing Problems N Hospitalizations N Thyroid Problems N GI Problems N ADD/ADHD N Skin Problems N Eating Disorder N Anemia N Constipation N Mental Illness N Ovarian Cancer N Diabetes N Bedwetting N Seizures/Epilepsy N Tuberculosis N Eczema N Diverticulitis N Abuse/Domestic Violence N Asthma N Reflux/GERD N Hepatitis N Heart Disease N Pulmonary Embolism N Pre-Eclampsia N Hypertension Y Chronic Ear Infections N Osteoporosis N Chicken Pox N Autism Spectrum Disorder (ASD) N Thrombophilias N Gynecological HistoryNo gynecological history recorded. Obstetrics History GPAL:G 4 P 3 0 1 3 Type Value Full Term 3 Spontaneous 1 Living 3 Total 4 Immunizations Vaccine Type Date Status Note Provider Nam e and Address Organization Details Recorded Time Tdap 12/13/2022 completed Beltran Hahn MD [address] [place] [address], [phone], [facility] 12/14/2022 09:10:12 Tdap 05/20/2015 completed OLAMIDE silva [facility] 12/14/2022 10:33:16 Influenza, split virus, quadrivalent, PF 06/01/2021 completed OLAMIDE silva [facility] 12/14/2022 10:33:16 Influenza, split virus, trivalent, PF 04/22/2024 completed Beltran Hahn MD [address] [place] [address], [phone], [facility] 04/23/2024 10:17:47 Past Encounters Encounter ID Performer Location Encounter Start Date Encounter Closed Date Diagnosis/Indication Diagnosis SNOMED-CT Code Diagnosis ICD10 Code Diagnosis IMO Codes Diagnosis Note [id number] Beltran Hahn MD [facility] ([facility]) [address] [place] [phone] 05/19/2025 14:06:47 05/19/2025 15:05:05 Obstructive sleep apnea syndrome 43802297 G47.33 - Continued CPAP therapy as instructed based on compliance and symptom improvemen t. - Contact if new issues arise or symptoms worsen. [id number] THELMA AGUILERA [facility] ([facility]) [address] [place] [phone] 05/21/2025 13:07:46 05/21/2025 13:42:02 Dysuria 80144666 R30.0 41333 Discussed to take antibiotic as prescribed until completedU rine culture ordered - will notify of any resultsEdu cated patient on increasing PO fluids of water, decreasing caffeine (coffee) and sugary drinks. Discussed if developmen t of abdominal pain, flank pain, fever, vomiting, worsening symptoms return to walk-in, PCP or ED for re-evaluat ion. Return to clinic if any changes, any worsening, any concernsPa tient verbalized understand ing of plan. Health Concerns Section Related Observation LastModified by Organization Detai ls LastModified Time None Recorded Concern Status LastModified by Organization Details LastModified Time None Recorded Payers Encounter Date Sequence Insurance Name Policy Number Policy Moore Covered Member ID Moore Member ID Guarantor Name 05/21/2025 1 [facility] (MEDICARE REPLACEMENT/A DVANTAGE - PPO) [id number] Nicole Villa [id number] Nicole Villa Notes Date Note Type Note Provider Name and Address Organization Details Recorded Time 05/21/2025 text/html ROS as noted in the HPI Walk inPossible UTI. Patient complains of increased urinary frequency, urgency, burning, back pain x1 day. Patient has not taken anything for symptoms. THELMA AGUILERA [address] [place], [phone], [facility] 05/21/2025 13:38:38 OBGyn Episode No OBEpisode recorded.
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
--- OUTSIDE RECORDS SUMMARY | 2025-05-30 21:00 | XMS_ITS | Continuity of Care Document ---
Author Organization [facility] - [facility], L[place]arly, [facility] ([facility]) Address [address] [place] [address] Care Team Providers Care Unit Control Worker Name Role Phone BELTRAN HAHN Primary Care Provider [phone] Assessment Encounter Date Assessment Date Assessment LastModified by Organization Details LastModified Time 04/19/2025 04/19/2025 59-year-old female with a history of back pain, headaches, and intermittent shocking sensations in the head presenting for evaluation and management. The back pain may be influenced by dietary factors and has shown some improvement. The headache symptoms with shocking sensations lack new neurological findings. The need for a mammogram and meloxicam refill is documented. [email or web address] Not available 04/19/2025 15:29:42 Plan of Treatment Reminders Order Date Submit Date Provider Last Modified By Organization Details Last Modified Time Details Appointments None record ed. Lab None record ed. Referral None record ed. Procedures None record ed. Surgeries None record ed. Imaging None record ed. Medication Orders None record ed. Patient TargetsNo targets recorded. Patient Instructions Encounter Date Encounter Id Patient Instructions Last Modified By Organization Details Last Modified Time 04/19/2025 [id number] - Keep a log of back pain triggers and adjust diet accordingly. - Monitor for any changes in headache patterns or new symptoms. - Schedule a mammogram as discussed. - Stay hydrated; limit soda intake to help manage symptoms. - Follow up as needed for any changes in symptoms or concerns. [email or web address] Not available 04/19/2025 15:20:13 I discussed with the patient the persistent nature of her back pain, potentially influenced by dietary habits like soda consumption. Emphasis was given to monitoring symptoms and dietary alterations. For the headaches with associated shocking sensations, continued vigilant observation was recommended, while acknowledging their long-standing nature without new neurological features. Agreed on the need for a screening mammogram and processed her meloxicam prescription refill. Discussed the importance of remaining attentive to new symptoms, advising on adequate hydration and lifestyle strategies conducive to the management of her conditions. [email or web address] Not available 04/19/2025 15:20:14 Reason for Referral None Reported. Problems Name Problem SNOMED Code Status Onset Date Resolution Date Notes Provider Name and Address Organization Details Recorded Time Sukumar azevedo hypertmaycol lindsey 21004047 Active 2022 OLAMIDE silva [facility] 3 15:58:22 Hypercho lesterol emia 15950380 Active 2022 OALMIDE silva [facility] 3 15:58:32 Gastriti s 0606327 Completed 202202/28/2023 Beltran Hahn MD [address] [place] [address], [phone], [facility] 5 17:54:30 Arthriti s of knee 613508400 Active 2022 OLAMIDE silva [facility] 3 16:57:32 Insomnia 989276512 Active 2022 Beltran Hahn MD [address] [place] [address], [address] 5, [facility] 3 12:17:39 Severe recurren t major depressi on without psychoti c features 24590056 Active 2023 Beltran Hahn MD [address] [place] [address], 626[address] 5, [facility] 4 16:07:16 Synoviti s and tenosyno vitis of joint of hand Active 2023 Beltarn Hahn MD [address] [place] [address], [address] 5, [facility] 4 16:12:49 Morbid obesity 484793878 Active 2023 Beltran Hahn MD [address] [place] [address], [address] 5, [facility] 4 11:28:38 Pain of right shoulder joint 91026895761 803604 Active 2023 Beltran Hahn MD [address] [place] [address], [address]083 5, [facility] 4 16:12:17 Dental abscess 885910038 Active 2023 Beltran Hahn MD [address] [place] [address], [address] 5, [facility] 4 17:19:49 Gastriti s 4813639 Active 2024 Beltran Hahn MD [address] [place] [address], [address] 5, [facility] 5 17:54:30 Sleep apnea 25114999 Active 2024 CPAP started around 03/31/20 Carolina silva [facility] 5 14:13:54 Obstruct sirisha sleep apnea syndrome 94996617 Active 2024 Daksha silva [facility] 5 12:34:59 Bilatera l headache 092636175 Active 2024 Beltran Hahn MD [address] [place] [address], [address] 5, [facility] 5 15:29:26 Osteoart hritis 486170202 Active 2024 Beltran Hahn MD [address] [place], [address], [facility], [place] 15:29:27 Problem Notes None recorded. Procedures Surgical History Date Name Laterality Status Provider Name and Address Organization Details Recorded Time Tubal L[facility] 12:11:38 cholecystectomy completed [facility]2024 12:11:44 Imaging Results None recorded. Procedure [...] Available Not Available meloxicam daily 03/21 completed 48698; Recorded 09/12/19 6:54AM by Olamide Brantley (Authori cornelia through Beltran Hahn MD), Refill Request; Refill Quantity : 0; Not Available Not Available Not Available Aspirin EC daily 03/21 completed 0; Recorded 08/28/19 1:58PM by Olamide Brantley, Historic al Summary; Not Available Not Available Not [...] sure of the mg. S. Huddlest on, ADMINISTRATIVE SERVICES OFFICER Not Available Not Available Not Available Vitals Date Recorded Body height Body mass index (BMI) Body weight Oxygen saturation Heart rate Respiratory rate Body temperature Systolic And Diastolic Provider Name and Address Organization Details Last Updated DateTime 157.48 cm 41.1 kg/m2 733429. 56 g 99 % 99 /min 20 /min 97.2 [degF] 112/72 mm[Hg] Carolina Zuluaga [facility], KarlaFang 14:57:01 Social History Question Answer Notes LastModified by Organizat ion Details LastModified Time Tobacco Smoking Status Never Smoker VALENTÍN NG [facility] 04/01/2024 12:11:21 What Is Your Level Of Caffeine Consumption? Occasional [email or web address] Information not available 12/15/2024 Which Illicit Or Recreational Drugs Have You Used? Marijuana Information not available 12/15/2024 What Type Of Marijuana Have You Used? Smoke [email or web address] Information not available 04/19/2025 Do You Or Have You Ever Used Marijuana? Current Every Day User [email or web address] Information not available 04/19/2025 What Was The Date Of Your Most Recent Tobacco Screening? 05/19/2025 [email or web address] Information not available 05/19/2025 Was Your Marijuana Use Recreational Or Medical? Medical Information not available 04/19/2025 Sex: Unknown Functional Status Question Answer Note LastModified by Organizat ion Details LastModified Time Do you use any illicit or recreational drugs? Yes [email or web address] Information not available 12/15/2024 What is your level of alcohol consumption? None [email or web address] Information not available 12/15/2024 Mental Status None [...] Time Tdap 12/13/2022 completed Beltran Hahn MD [address] [place] [address], [phone], [facility] 12/14/2022 09:10:12 Tdap 05/20/2015 completed OLAMIDE silva [facility] 12/14/2022 10:33:16 Influenza, split virus, quadrivalent, PF 06/01/2021 completed OLAMIDE silva [facility] 12/14/2022 10:33:16 Influenza, split virus, trivalent, PF 04/22/2024 completed Beltran Hahn MD [address] [place] [address], [phone], [facility] 04/23/2024 10:17:47 Past Encounters Encounter ID Performer Location Encounter Start Date Encounter Closed Date Diagnosis/Indication Diagnosis SNOMED-CT Code Diagnosis ICD10 Code Diagnosis IMO Codes Diagnosis Note [id number] Beltran Hahn MD [facility] ([facility]) [address] [place] [address] 04/19/2025 14:47:20 04/19/2025 15:31:41 Left flank pain 776578579 R10.A2 - Encourage monitoring of triggers; address soda consumptio n impact. Bilateral headache 97723 1005 R51.9 - Continue to evaluate symptoms; no immediate red flags noted. Screening mammography 24 022691 Z12.31 84771260 - Refer for screening mammogram per guideline recommenda tion. Osteoarthritis 775255800 M19.90 [id number] - Authorized refill of meloxicam per patient's request. Health Concerns Section Related Observation LastModified by Organization Detai ls LastModified Time None Recorded Concern Status LastModified by Organization Details LastModified Time None Recorded Payers Encounter Date Sequence Insurance Name Policy Number Policy Moore Covered Member ID Moore Member ID Guarantor Name 04/19/2025 1 [facility] (MEDICARE REPLACEMENT/A DVANTAGE - PPO) [id number] Nicole Villa [id number] Nicole Villa Notes Date Note Type Note Provider Name and Address Organization Details Recorded Time 04/19/2025 text/html Skin LesionRepor robyn by PatientHPIFor location, patient reportsback. For quality, patient reportspainful(sharp pains). For severity, patient reportsmild. For duration, patient reportsstarted: ___and2 weeks. For timing, patient reportsabrupt. For associated symptoms, patient reportsno fever,no skin flakes, andno scabbing. The patient is a 59-year-old female presenting with concerns regarding a painful spot on her back. She notes that the discomfort has been intermittent, previously exacerbated by soda consumption yet showing improvement with dietary changes. Accompanying symptoms include headaches and intermittent shocking sensations in the head that do not have apparent triggers or accompanying neurological changes. The patient last experienced an issue with these sensations during a period of prescription lapses years ago. She also expresses interest in obtaining a mammogram and requests a refill of her meloxicam prescription. Beltran Hahn MD [address] [place] [address], [phone], [facility], [place] 04/19/2025 15:29:53 OBGyn Episode No OBEpisode recorded.
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
--- OUTSIDE RECORDS SUMMARY | 2025-05-30 21:00 | XMS_ITS | Continuity of Care Document ---
Author Organization JUAN [facility] [place], LCharly, [facility] ([facility]) Address [address] [place] [address] Care Team Providers Care Mail Rider Name Role Phone BELTRAN HAHN Primary Care Provider Assessment Encounter Date Assessment Date Assessment LastModified by Organization Details LastModified Time 05/19/2025 05/19/2025 - 59-year-old female with history of obstructive sleep apnea syndrome presenting with follow-up for CPAP therapy management. - CPAP compliance and symptom improvement reported. [email or web address] Not available 05/19/2025 14:34:55 Plan of Treatment Reminders Order Date Submit [...] Modified By Organization Details Last Modified Time 05/19/2025 [id number] - Keep using you r CPAP every night as you have been. - If new problems occur or your symptoms get worse, let us know. - Remember that CPAP has long-term benefits, so stick with it. [email or web address] Not available 05/19/2025 14:34:59 During the visit , I discussed with the patient the importance of continued compliance with CPAP therapy, which currently shows positive outcomes with improved restfulness and symptom control. I explained the benefits of continued CPAP use, including reduced strain on the cardiovascular system and potential alleviation of symptoms such as headaches and hypertension. We reviewed the patient's successful adjustments and adaptations to the CPAP machine. No additional interventions or changes to her current treatment plan were necessary at this time. Continued monitoring and compliance were emphasized. [email or web address] Not available 05/19/2025 14:34:59 Reason for Referral None Reported. Problems Name Problem SNOMED Code Status Onset Date Resolution Date Notes Provider Name and Address Organization Details Recorded Time Sukumar lindsey 55676663 Active 2022 OLAMIDE silva [facility] 3 15:58:22 Hypercho lesterol emia 37324852 Active 2022 OLAMIDE silva [facility] 3 15:58:32 Gastriti s 8658999 Completed 202202/28/2023 Beltran Hahn MD [address] [place] [address], [address], [facility] 5 17:54:30 Arthriti s of knee 456550389 Active 2022 OLAMIDE silav [facility] 3 16:57:32 Insomnia 529408987 Active 2022 Beltran Hahn MD [address] [place] [address], [address] 5, [facility] 3 12:17:39 Severe recurren t major depressi on without psychoti c features 35981856 Active 2023 Beltran Hahn MD [address] [place] [address], [address] 5, [facility] 4 16:07:16 Synoviti s and tenosyno vitis of joint of hand Active 2023 Beltran Hahn MD [address] [place] [address], [address] 5, [facility] 4 16:12:49 Morbid obesity 642918040 Active 2023 Beltran Hahn MD [address] [place] [address], [address] 5, [facility] 4 11:28:38 Pain of right shoulder joint 34033464653 746082 Active 2023 Beltran Hahn MD [address] [place] [address], [address] 5, [facility] 4 16:12:17 Dental abscess 353430808 Active 2023 Beltran Hahn MD [address] [place] [address], [address], [facility] 4 17:19:49 Gastriti s 9138753 Active 2024 Beltran Hahn MD [address] [place] [address], [address] 5, [facility] 5 17:54:30 Sleep apnea 94607164 Active 2024 CPAP started around 03/31/20 [facility] 5 14:13:54 Obstruct sirisha sleep apnea syndrome 07206638 Active 2024 Daksha silva [facility] 5 12:34:59 Bilatera l headache 666533063 Active 2024 Beltran Hahn MD [address] [place] [address], [address] 5, [facility] 5 15:29:26 Osteoart hritis 154294885 Active 2024 Beltran Hahn MD [address] [place] [address], [address], [facility] 15:29:27 Problem Notes None recorded. Procedures Surgical History Date Name Laterality Status Provider Name and Address Organization Details Recorded Time Tubal Ligation completed VALENTÍN [facility]Z [facility]DE[facility] 04/01/2024 12:11:38 cholecystectomy completed [facility]Z [facility] 04/01/2024 12:11:44 Imaging Results None recorded. Procedure [...] Available Not Available meloxicam daily 03/21 completed 78403; Recorded 09/12/19 6:54AM by Olamide Brantley (Authori [...] sure of the mg. S. Huddlest on, WIRE INSERTER Not Available Not Available Not Available Vitals Date Recorded Body height Body mass index (BMI) Body weight Body temperature Oxygen saturation Heart rate Systolic And Diastolic Provider Name and Address Organization Details Last Updated DateTime 5 157.48 cm 41 kg/m2 768428. 69 g 97 [degF] 99 % 61 /min 108/70 mm[Hg] Carolina Zuluaga [facility] 14:16:28 Social History Question Answer Notes LastModified by Organizat ion Details LastModified Time Tobacco Smoking Status Never Smoker VALENTÍN silva [facility] 04/01/2024 12:11:21 What Is Your Level Of Caffeine Consumption? Occasional [email or web address] Information not available 12/15/2024 Which Illicit Or Recreational Drugs Have You Used? Marijuana [email or web address] Information not available 12/15/2024 What Type Of Marijuana Have You Used? Smoke [email or web address] Information not available 04/19/2025 Do You Or Have You Ever Used Marijuana? Current Every Day User Information not available 04/19/2025 What Was The Date Of Your Most Recent Tobacco Screening? 05/19/2025 [email or web address] Information not available 05/19/2025 Was Your Marijuana Use Recreational Or Medical? Medical [email or web address] Information not available 04/19/2025 Sex: Unknown Functional Status Question Answer Note LastModified by Organizat ion Details LastModified Time Do you use any illicit or recreational drugs? Yes [email or web address] Information not available 12/15/2024 What is your level of alcohol consumption? None [email or web address] Information not available 12/15/2024 Mental Status None recorded. Family History Nothing Reported Notes:Adopted. No HX Medical History Condition Response Coronary Artery Disease N Other N Gout N Kidney Stones N Blood Diseases N Hyperthyroidism N Breast Cancer N Blood Transfusion N Depression Y COPD N Lung Disease N Hypothyroidism N Developmental or Behavioral Disorders N Defects [...] Time Tdap 12/13/2022 completed Beltran Hahn MD [address] [place] [address], [phone], [facility] 12/14/2022 09:10:12 Tdap 05/20/2015 completed OLAMIDE silva [facility], [place] 12/14/2022 10:33:16 Influenza, split virus, quadrivalent, PF 06/01/2021 completed OLAMIDE silva [facility], [place] 12/14/2022 10:33:16 Influenza, split virus, trivalent, PF 04/22/2024 completed Beltran Hahn MD [address] [place] [address], [address], [facility], [place] 04/23/2024 10:17:47 Past Encounters Encounter ID Performer Location Encounter Start Date Encounter Closed Date Diagnosis/Indication Diagnosis SNOMED-CT Code Diagnosis ICD10 Code Diagnosis IMO Codes Diagnosis Note [id number] Beltran Hahn MD [facility] ([facility]) [address] [place] [address] 04/19/2025 14:47:20 04/19/2025 15:31:41 Left flank pain 869200709 R10.A2 - Encourage monitoring of triggers; address soda consumptio n impact. Bilateral headache 87417 1005 R51.9 - Continue to evaluate symptoms; no immediate red flags noted. Screening mammography 24 296057 Z12.31 03924927 - Refer for screening mammogram per guideline recommenda tion. Osteoarthritis 267448466 M19.90 128514320 - Authorized refill of meloxicam per patient's request. [id number] Beltran Hahn MD [facility] ([facility]) [address] [place] [address] 05/19/2025 14:06:47 05/19/2025 15:05:05 Obstructive sleep apnea syndrome 29682447 G47.33 - Continued CPAP therapy as instructed based on compliance and symptom improvemen t. - Contact if new issues arise or symptoms worsen. Health Concerns Section Related Observation LastModified by Organization Detai ls LastModified Time None Recorded Concern Status LastModified by Organization Details LastModified Time None Recorded Payers Encounter Date Sequence Insurance Name Policy Number Policy Moore Covered Member ID Moore Member ID Guarantor Name 05/19/2025 1 [facility] (MEDICARE REPLACEMENT/A DVANTAGE - PPO) [id number] Nicole Villa [id number] Nicole Villa Notes Date Note Type Note Provider Name and Address Organization Details Recorded Time 05/19/2025 text/html The patient is a 59-year-old female presenting with obstructive sleep apnea syndrome for CPAP follow-up. Since her last evaluation, she has adjusted the humidity settings and selected a suitable mask for her CPAP machine, which resolved initial issues of mask water leakage and dry mouth. She reports using the CPAP every night for five to six hours, demonstrating compliance with the therapy, and notes improvement in her sense of feeling rested. Beltran Hahn MD [address] [place] [address], [phone], [facility], [facility] 05/19/2025 15:32:00 OBGyn Episode No OBEpisode recorded.
--- OUTSIDE RECORDS SUMMARY | 2025-05-30 21:00 | XMS_ITS | Data Portability ---
Author Organization [facility] Tee Olvera [facility], [facility], [facility] Address [address] [address] Care Team Providers Care Wic Site Coordinator Name Role Phone BELTRAN HAHN Primary Care [...] is documented. [email or web address] Not available 04/19/2025 15:29:42 05/19/2025 05/19/2025 - 59-year-old female with history of obstructive sleep apnea syndrome presenting with follow-up for CPAP therapy management. - CPAP compliance and symptom improvement reported. [email or web address] Not available 05/19/2025 14:34:55 Plan of Treatment Reminders Order Date Submit Date Provider Last Modified By Organization Details Last Modified Time Details Appointments None recorded. Lab culture, urine 2024 025 TIFFANIERed e App [facility], [address] [place] [address] [address], [address] [facility] [place], [address], 11:03:16 urinalysis, dipstick 2024 025 [facility] ([facility]), [address] [place], [address], 13:31:27 lipid panel, blood 2024 025 [facility], [address], [address], [place], [address], 08:00:17 CMP, serum or plasma 2024 025 [facility], [address] [facility] [address], [address], [place], [address], 08:00:15 CBC 2024 025 [facility], [address], [place], [address], 09:34:21 Referral None recorded. Procedures None recorded. Surgeries None recorded. Imaging None recorded. Medication Orders nitrofurant oin monohydrate /macrocryst als 100 mg capsule 2024 025 [facility] #[id number], [address] [facility] [address], [facility], [place], [address], 13:37:21 phenazopyri dine 200 mg tablet 2024 025 [facility]acy #[id number], [address], [facility], [place], [address], 05:01:16 trazodone 50 mg tablet 2024 025 TIFFANIE [facility], [address] [place] [address], [address], [place], [place], [id number], 17:53:06 omeprazole 40 mg capsule,del ayed release 2024 025 [email or web address] [facility], [address] [facility] [place], [address], [place], [place], [id number], 10:45:19 Patient TargetsNo targets recorded. Patient Instructions Encounter Date Encounter Id Patient Instructions Last Modified By Organization Details Last Modified Time 04/19/2025 [id number] - Keep a log of back pain [...] her conditions. [email or web address] Not available 04/19/2025 15:20:14 05/19/2025 [id number] - Keep using you r CPAP every [...] 05/19/2025 14:34:59 Reason for Referral None Reported. Results Created Date Observation Date Name Description Value Unit Range Abnormal Flag Note LastModifiedBy Organization Detail LastModifiedTime 12/17/19 25 12/16/2024 CMP (FEMA LE) glucose 136.0 mg/dL 60.0-9 9.0 high Not Available [facility] [address] [facility] [address], [place], [address], 12/16/2024 08:00:15 12/17/1912/16/2024 CMP (FEMA LE) BUN (blood urea nitrogen) 25.0 mg/dL 10.0-2 6.0 Not Available [facility] [address] [facility], [place], [address], 12/16/2024 08:00:15 12/17/1912/16/2024 CMP (FEMA LE) creatinine (serum) 1.3 mg/dL 0.4-1. 5 Not Available [facility] [address] [facility], [place], [address], 12/16/2024 08:00:15 12/17/1912/16/2024 CMP (FEMA LE) BUN/creatini ne ratio 19.23 ratio Not Available [facility] [address] [facility], [place], [address], 12/16/2024 08:00:15 12/17/1912/16/2024 CMP (FEMA LE) eGFR calculated 44.4 Not Available [facility] [address] [facility], [place], [address], 12/16/2024 08:00:15 12/17/1912/16/2024 CMP (FEMA LE) total protein 7.5 g/dL 6.0-8. 5 Not Available [facility] [address] [facility], [place], [address], 12/16/2024 08:00:15 12/17/1912/16/2024 CMP (FEMA LE) total bilirubin 0.6 mg/dL 0.2-1. 3 Not Available [facility] [address] [facility], [place], [address], 12/16/2024 08:00:15 12/17/19 25 12/16/2024 CMP (FEMA LE) albumin 4.6 g/dL 3.5-5. 5 Not Available [facility] [address] [facility] [address] [facility], [place], [address], 12/16/2024 08:00:15 12/17/1912/16/2024 CMP (FEMA LE) globulin 2.9 calc Not Available [facility] [address] [facility], [place], [address], 12/16/2024 08:00:15 12/17/1912/16/2024 CMP (FEMA LE) AST (SGOT) 71.0 U/L 0.0-46 .0 high Not Available [facility] [address] [facility] [address], [place], [address], 12/16/2024 08:00:15 12/17/1912/16/2024 CMP (FEMA LE) altv (SGPT) 38.0 U/L 13.0-6 9.0 normal Not Available [facility] [address] [facility], [place], [address], 12/16/2024 08:00:15 12/17/1912/16/2024 CMP (FEMA LE) A/G ratio 1.6 ratio Not Available [facility] [address] [facility] [address], [place], [address], 12/16/2024 08:00:15 12/17/1912/16/2024 CMP (FEMA LE) ALP phos 35.0 U/L 30.0-1 40.0 normal Not Available [facility] [address] [facility], [place], [address], 12/16/2024 08:00:15 12/17/1912/16/2024 CMP (FEMA LE) calcium 9.4 mg/dL 8.4-10 .5 Not Available [facility] [address] [facility] [address], [place], [address], 12/16/2024 08:00:15 12/17/1912/16/2024 CMP (FEMA LE) sodium 138.0 mmol/ L 136.0- 145.0 Not Available [facility] [address] [facility], [place], [address], 12/16/2024 08:00:15 12/17/1912/16/2024 CMP (FEMA LE) potassium 4.0 mmol/ L 3.5-5. 1 Not Available [facility] [address] [facility], [place], [address], 12/16/2024 08:00:15 12/17/1912/16/2024 CMP (FEMA LE) chloride 104.0 mmol/ L 98.0-1 10.0 normal Not Available [facility] [address] [facility], [place], [address], 12/16/2024 08:00:15 12/17/1912/16/2024 CMP (FEMA LE) C02 27.0 mmol/ L 22.0-3 1.0 Not Available [facility] [address] [facility], [place], [address], 12/16/2024 08:00:15 12/17/1912/16/2024 CMP (FEMA LE) anion gap 7.0 calc Not Available [facility] [address] [facility], [place], [address], 12/16/2024 08:00:15 12/17/1912/16/2024 CMP (FEMA LE) osmolality 291.1 calc Not Available [facility] [address] [place], [address], 12/16/2024 08:00:15 12/17/1912/16/2024 LIPID PROFI LE (FEMA LE) cholesterol 171.0 mg/dL 0.0-20 0.0 Not Available [facility] [address] [address], [place], [address], 12/16/2024 08:00:17 12/17/19 25 12/16/2024 LIPID PROFI LE (FEMA LE) trig 226.0 mg/dL 0.0-15 0.0 high Not Available [facility] [address] [address], [place], [address], 12/16/2024 08:00:17 12/17/1912/16/2024 LIPID PROFI LE (FEMA LE) HDL - direct 50.0 mg/dL >40.0 Not Available [facility] [address] [address], [place], [address], 12/16/2024 08:00:17 12/17/1912/16/2024 LIPID PROFI LE (FEMA LE) VLDL - direct 45.2 mg/dL Not Available [facility] [address] [address], [place], [address], 12/16/2024 08:00:17 12/17/1912/16/2024 LIPID PROFI LE (FEMA LE) LDL - direct 75.8 mg/dL 0.0-13 0.0 Not Available [facility] [address] [address], [place], [address], 12/16/2024 08:00:17 12/17/1912/16/2024 CBC WBC 11.0 x10 4.0-10 .5 high Not Available [facility] [address] [address], [place], [address], 12/16/2024 09:34:20 12/17/19 25 12/16/2024 CBC RBC 4.14 x10 3.50-5 .50 Not Available [facility] [address] [facility], [place], [address], 12/16/2024 09:34:20 12/17/19 25 12/16/2024 CBC HGB 12.9 g/dL 12.0-1 6.0 Not Available [facility] [address] [facility], [place], [address], 12/16/2024 09:34:20 12/17/19 25 12/16/2024 CBC HCT 40.6 % 37.0-4 7.0 Not Available [facility] [address] [facility], [place], [address], 12/16/2024 09:34:20 12/17/19 25 12/16/2024 CBC MCV 98.1 fL 80.0-9 9.9 Not Available [facility] [address] [facility], [place], [address], 12/16/2024 09:34:20 12/17/19 25 12/16/2024 CBC MCH 31.2 pg 27.0-3 2.0 Not Available [facility] [address] [facility], [place], [address], 12/16/2024 09:34:20 12/17/19 25 12/16/2024 CBC MCHC 31.8 g/dL 32.0-3 6.0 low Not Available [facility] [address] [facility], [place], [address], 12/16/2024 09:34:20 12/17/19 25 12/16/2024 CBC RDW 13.5 % 11.5-1 4.5 Not Available [facility] [address] [facility], [place], [address], 12/16/2024 09:34:20 12/17/19 25 12/16/2024 CBC plt 358.2 x10 140.0- 451.0 Not Available [facility] [address] [facility], [place], [address], 12/16/2024 09:34:20 12/17/19 25 12/16/2024 CBC lymphocytes % 20.6 % 20.0-5 0.0 Not Available [facility] [address] [facility], [place], [address], 12/16/2024 09:34:20 12/17/19 25 12/16/2024 CBC granulcytes % 70.7 % 30.0-7 0.0 high Not Available [facility] [address] [facility], [place], [address], 12/16/2024 09:34:20 12/17/19 25 12/16/2024 CBC monocytes % 5.5 % 2.0-16 .0 Not Available [facility] [address] [facility], [place], [address], 12/16/2024 09:34:20 12/17/19 25 12/16/2024 CBC granulcytes# 7.8 x10 Not Cat ilable [facility] [address] [facility], [place], [address], 12/16/2024 09:34:20 12/17/19 25 12/16/2024 CBC lymphocytes # 2.3 x10 Not Available [facility] [address] [facility], [place], [address], 12/16/2024 09:34:20 12/17/19 25 12/16/2024 CBC monocytes # 0.6 x10 Not Avai lable [facility] [address] [facility], [place], [address], 12/16/2024 09:34:20 05/21/20 25 05/24/2025 CULTU RE, URINE , ROUTI NE culture, urine, routine SEE NOTE abnormal CULTU RE, URINE , ROUTI NE Micro Numbe r: [id number] Test Statu s: Final Speci men [...] lexin and lorac arbef . Not Available [facility] [address] [place], [address], 05/24/2025 11:03:16 05/21/2005/21/2025 urina lysis , dipst ick Color Yellow Not Available [facility] ([facility]) [address] [place] [address], [address], 05/21/2025 13:17:51 05/21/20 25 05/21/2025 urina lysis , dipst ick Appearance Clear Not Available [facility] [address] [place] [address], [address], 05/21/2025 13:17:51 05/21/20 25 05/21/2025 urina lysis , dipst ick Glucose Negati ve Not Available [facility] ([facility]) [address] [place] [address], [address], 05/21/2025 13:17:51 05/21/20 25 05/21/2025 urina lysis , dipst ick Bilirubin Negati ve Not Available [facility] ([facility]) [address] [place] [address], [address], 05/21/2025 13:17:51 05/21/20 25 05/21/2025 urina lysis , dipst ick Ketone Negati ve Not Available [facility] ([facility]) [address] [place] [address], [address], 05/21/2025 13:17:51 05/21/20 25 05/21/2025 urina lysis , dipst ick Specific [place] 1.030 Not Available [facility] ( [facility]) [address] [place], [address], 05/21/2025 13:17:51 05/21/20 25 05/21/2025 urina lysis , dipst ick Leukocytes Trace Not Available [facility] ([facility]) [address] [place], [address], 05/21/2025 13:17:51 05/21/20 25 05/21/2025 urina lysis , dipst ick Nitrite negati ve Not Available [facility] ([facility]) [address] [place], [address], 05/21/2025 13:17:51 05/21/20 25 05/21/2025 urina lysis , dipst ick Urobilinogen .2 Not Available [facility] ([facility]) [address] [place], [address], 05/21/2025 13:17:51 05/21/20 25 05/21/2025 urina lysis , dipst ick Protein 30 Not Available [facility] ([facility]) [address] [place], [address], 05/21/2025 13:17:51 05/21/20 25 05/21/2025 urina lysis , dipst ick pH 5.5 Not Available [facility] ([facility]) [address] [place], [address], 05/21/2025 13:17:51 05/21/20 25 05/21/2025 urina lysis , dipst ick Blood Negati ve Not Available [facility] ([facility]) [address] [place], [address], 05/21/2025 13:17:51 03/11/20 25 03/10/2025 home sleep study No observ ation record ed. [email or web address] [facility] [address] [facility], [place], [address], 03/12/2025 12:55:43 Result Notes None recorded. Problems Name Problem SNOMED Code Status Onset Date Resolution Date Notes Provider Name and Address Organization Details Recorded Time [facility] l hyperten rosalia 88681930 Active 2022 OLAMIDE silva [facility] 3 15:58:22 Hypercho lesterol emia 91658482 Active 2022 OLAMIDE silva [facility] 3 15:58:32 Gastriti s 7498161 Completed 202202/28/2023 Beltran Hahn MD [address] [place] [address], [address], [facility] 5 17:54:30 Arthriti s of knee 749489424 Active 2022 OLAMIDE silva [facility] 3 16:57:32 Insomnia 168826015 Active 2022 Beltran Hahn MD [address] [place] [address], [address], [facility] 3 12:17:39 Severe recurren t major depressi on without psychoti c features 56987450 Active 2023 Beltran Hahn MD [address] [place] [address], [address], [facility] 4 16:07:16 Synoviti s and tenosyno vitis of joint of hand Active 2023 Beltran Hahn MD [address] [place] [address], [address], [facility]. 4 16:12:49 Morbid obesity 827473646 Active 2023 Beltran Hahn MD [address] [place] [address], [facility] 4 11:28:38 Pain of right shoulder joint 21556755987 601187 Active 2023 Beltran Hahn MD [address] [place] [address] 5, [facility] 4 16:12:17 Dental abscess 109769946 Active 2023 Beltran Hahn MD [address] [place] [address] 5, [facility] 4 17:19:49 Gastriti s 7287682 Active 2024 Beltran Hahn MD [address] [place], [place] [address], [facility] 5 17:54:30 Sleep apnea 06860969 Active 2024 CPAP started around 03/31/20 25 Carolina Zuluaga [facility] 5 14:13:54 Obstruct sirisha sleep apnea syndrome 58583564 Active 2024 [facility] 12:34:59 Bilatera l headache 223363720 Active 2024 Beltran Hahn MD [address] [place] [phone], [facility] 5 15:29:26 Osteoart hritis 746942173 Active 2024 Beltran Hahn MD [address] [place] [address], [facility] 15:29:27 Problem Notes None recorded. Procedures Surgical History Date Name Laterality Status Provider Name and Address Organization Details Recorded Time Tubal Ligation completed VALENTÍN NG [facility], [facility] 04/01/2024 12:11:38 cholecystectomy completed [facility] 04/01/2024 12:11:44 Imaging Results None recorded. Procedure [...] Available Not Available meloxicam daily 03/21 completed 60788; Recorded 09/12/19 6:54AM by Olamide Brantley (i cornelia through Beltran Hahn MD), Refill Request; [...] sure of the mg. S. Huddlest on, [employer] Not Available Not Available Not Available Vitals Date Recorded Body height Body mass index (BMI) Body weight Body temperature Heart rate Oxygen saturation Systolic And Diastolic Provider Name and Address Organization Details Last Updated DateTime 5 157.48 cm 42.4 kg/m2 672634. 43 g 97.5 [degF] 72 /min 99 % 134/82 mm[Hg] [facility] 5 17:24:00 Date Recorded Body height Body mass index (BMI) Body weight Oxygen saturation Heart rate Body temperature Systolic And Diastolic Provider Name and Address Organization Details Last Updated DateTime 5 157.48 cm 42.1 kg/m2 681185. 25 g 97 % 71 /min 98.3 [degF] 116/76 mm[Hg] Natasha Finch [facility] 5 13:13:18 Date Recorded Body height Body mass index (BMI) Body weight Oxygen saturation Heart rate Respiratory rate Body temperature Systolic And Diastolic Provider Name and Address Organization Details Last Updated DateTime 5 157.48 cm 41.1 kg/m2 109817. 56 g 99 % 99 /min 20 /min 97.2 [degF] 112/72 mm[Hg] Carolina [facility] 5 14:57:01 Date Recorded Body height Body mass index (BMI) Body weight Body temperature Oxygen saturation Heart rate Systolic And Diastolic Provider Name and Address Organization Details Last Updated DateTime 5 157.48 cm 41 kg/m2 614926. 69 g 97 [degF] 99 % 61 /min 108/70 mm[Hg] Carolina Zuluaga [facility] 5 14:16:28 Date Recorded Body height Body mass index (BMI) Body weight Oxygen saturation Heart rate Body temperature Systolic And Diastolic Provider Name and Address Organization Details Last Updated DateTime 5 157.48 cm 40.7 kg/m2 971813. 31 g 99 % 66 /min 98.9 [degF] 130/78 mm[Hg] Heidi Hutchison [facility] 5 13:22:08 Social History Question Answer Notes LastModified by Organizat ion Details LastModified Time Tobacco Smoking Status Never Smoker VALENTÍN silva [facility] 04/01/2024 12:11:21 What Is Your Level Of Caffeine Consumption? Occasional Information not available 12/15/2024 Which Illicit Or Recreational Drugs Have You Used? Marijuana [email or web address] Information not available 12/15/2024 What Type Of Marijuana Have You Used? Smoke [email or web address] Information not available 04/19/2025 Do You Or Have You Ever Used Marijuana? Current Every Day User [email or web address] Information not available 04/19/2025 What Was The Date Of Your Most Recent Tobacco Screening? 05/19/2025 [email or web address] Information not available 05/19/2025 Was Your Marijuana Use Recreational Or Medical? Medical [email or web address] Information not available 04/19/2025 Sex: Unknown Functional Status Question Answer Note LastModified by Organizat ion Details LastModified Time Do you use any illicit or recreational drugs? Yes [email or web address] Information not available 12/15/2024 What is your level of alcohol consumption? None [email or web address] Information not available 12/15/2024 Mental Status None recorded. Family History Nothing Reported Notes:Adopted. No HX Medical History Condition Response Coronary Artery Disease N Gout N Other N Blood Diseases N Kidney Stones N Hyperthyroidism N Blood Transfusion N Breast Cancer N Depression Y COPD N Lung Disease N Hypothyroidism N Developmental or Behavioral Disorders N Defects or Inherited Disease N Breast Problem N Difficulty Swallowing N Anesthesia Complications N Anxiety Disorder N Meniere's disease N Muscle, Joint, or Bone Problems N [...] N Heart Disease N Pulmonary Embolism N Chronic Ear Infections N Pre-Eclampsia N Hypertension Y Chicken Pox N Autism Spectrum Disorder (ASD) N Osteoporosis N Thrombophilias N Gynecological HistoryNo gynecological history recorded. Obstetrics History GPAL:G 4 P 3 0 1 3 Type Value Full Term 3 Spontaneous 1 Living 3 Total 4 Immunizations Vaccine Type Date Status Note Provider Nam e and Address Organization Details Recorded Time Tdap 12/13/2022 completed Beltran Hahn MD [address] [place] [address], [address], [facility] 12/14/2022 09:10:12 Tdap 05/20/2015 completed OLAMIDE silva [facility] 12/14/2022 10:33:16 Influenza, split virus, quadrivalent, PF 06/01/2021 completed OLAMIDE silva [facility] 12/14/2022 10:33:16 Influenza, split virus, trivalent, PF 04/22/2024 completed Beltran Hahn MD [address] [place] [address], [address], [facility], [facility] 04/23/2024 10:17:47 Past Encounters Encounter ID Performer Location Encounter Start Date Encounter Closed Date Diagnosis/Indication Diagnosis SNOMED-CT Code Diagnosis ICD10 Code Diagnosis IMO Codes Diagnosis Note [id number] Beltran Hahn MD [facility] ([facility]) [address] [place] [phone] 10/11/2022 15:50:14 10/17/2022 13:58:38 Gastritis 2900313 K29.70 likely gastritis is causing her symptoms and likely related to daily meloxicam use. Start PPI and stop meloxicam. f/u if sx do not improve. Arthritis of knee 988700 002 M13.869 we will transition to topical treatment. may also use tylenol. discussed daily exercise and wt loss in overal management . Essential hypertension 06828320 I10 Beltran Hahn MD [facility] ([facility]) [address] [place] [phone] 12/13/2022 15:38:58 12/15/2022 16:00:00 Hypercholesterolemia 13955069 E78.00 Essential hypertension 57571615 I10 Patient will monitor blood pressure and report if unable to control or if they develop new symptoms. Screening mammography 24 123206 Z12.31 Screening colonoscopy 44 4107952 Z12.11 Hepatitis C screening 41 5213210 Z11.59 Administra tion of tetanus vaccine 550949602 Z23 Depressive disorder 9898 9007 F33.9 [id number] Beltran Hahn MD [facility] ([facility]) [address] [place] [phone] 03/01/2023 12:02:15 03/11/2023 10:07:51 Insomnia 812768453 G47.00 Essential hypertension 53855422 I10 Patient will monitor blood pressure and report if unable to control or if they develop new symptoms. Arthritis of knee 130155 002 M13.869 Patient doing well on topical medication s. Handicap placard forms given to the patient today. [id number] Beltran Hahn MD [facility] ([facility]) [address] [place] [phone] 03/23/2024 15:28:06 03/23/2024 16:15:38 Essential hypertension 11565324 I10 Will restart hydrochlor othiazide. Monitor blood pressure at home and keep a log. Provide readings in 1 week. Severe rec urrent major depression without psychotic features 14345133 F33.2 Will add bupropion as to the previously discussed. Synovitis and tenosynovitis of joint of hand 6206170205 M65.842 Discussed RICE. Instructed the patient to do basic range of motion exercises and gripping exercises. Patient should do relative rest and if symptoms are not improving then follow-up. Morbid obesity 745685084 E66.01 Discussed diet, exercise, and weight loss. Hypercholesterolemia 136 56294 E78.00 Tolerating statin. Will plan on checking cholestero l at next follow-up visit. [id number] Porsha Novak MD [facility] ([facility]) [address] [place] [id number] 04/01/2024 11:39:14 04/02/2024 11:17:16 Screening mammography 81475244 Z12.31 Postmenopa usal bleeding 06864300 N95.0 I discussed that even if the patient's Pap smear and pelvic ultrasound appear normal she would still require an endometria l biopsy to rule out malignancy . She understand s this and will follow-up about a week after her pelvic ultrasound to discuss the plan for endometria l biopsy. [id number] oPrsha Novak MD [facility] ([facility]) [address] [place] [id number] 04/02/2024 11:42:42 04/02/2024 16:20:33 [id number] Beltran Hahn MD [facility] ([facility]) [address] [place] [phone] 04/22/2024 15:35:52 04/22/2024 16:30:50 Severe recurrent major depression without psychotic features 87187501 F33.2 Patient is doing better with the addition of Wellbutrin . Patient denies any significan t side effects. Essential hypertension 35157454 I10 Will add lisinopril . Check labs today. Continue to monitor blood pressure at home. Hypercholesterolemia 136 68256 E78.00 Check lipid panel Active or passive immunization [id number] Z23 Pain of ri ght shoulder joint [id number] M25.511 Exercises provided for the patient to do at home. Will start a muscle relaxer. Add diclofenac gel. [id number] Porsha Novak MD [facility] ([facility]) [address] [place] [address] [phone] 5 04/29/2024 11:38:40 04/29/2024 13:05:02 Postmenopausal bleeding [id number] N95.0 Pt was receiving testostero ne and progestero ne hormones from another clinic. She had bright red spotting after being on them for a while. Pap was NIL, cervical polyp visualized on pelvic exam and pelvic u/s wnl. I discussed at length that the appropriat e workup for postmenopa usal bleeding involves EMB. We discussed that most likely her bleeding was from hormones vs the polyp but I still recommend EMB. It would be beneficial to remove the polyp since it, too, could have caused some bleeding (bled easily with swab). I offered EMB here, but it makes more sense to do both procedures at one time. Will refer to supply chain coordinator who can perform polypectom y at the time of EMB. 04/29/24 Polyp at cervical os [id number] N84.1 [id number] Beltran Hahn MD [facility] ([facility]) [address] [place] [address] [phone] 05/13/2024 16:50:47 05/13/2024 17:29:02 Dental abscess [id number] K04.7 Will go ahead and start antibiotic s and provide medication to help with pain. Maintain dental follow-up. [id number] Beltran Hahn MD [facility] ([facility]) [address] [place] [address] [phone] 5 12/15/2024 17:15:48 12/17/2024 10:19:01 Hypercholesterolemia [id number] E78.00 Continue statin. Recheck cholestero l Morbid obesity 215520277 E66.01 Discussed diet, exercise, and weight loss. Severe rec urrent major depression without psychotic features [id number] F33.2 Doing well with bupropion. Essential hypertension 31049627 I10 Blood pressure management . Medication s. Continue blood pressure management . General ex amination of patient [id number] Z00.00 199033 Encouraged patient to exercise regularly, work on [employer] diet and weight loss. Insomnia 907299533 G47.0 0 Restart tramadol to help with insomnia Gastritis 6102611 K29.70 Doing well with omeprazole . [id number] THELMA MICHAEL [facility] ([facility]) [address] [place] [address] [phone] 01/08/2025 12:56:35 01/08/2025 13:00:27 Swelling of eyelid 887815277 H02.845 [id number] Swelling to left lower eyelid present. No eye pain, vision changes, or drainage. Suspect insect bite. Discussed cool compress to the area. Return if you develop new/worsen ing s/s [id number] Beltran Hahn MD [facility] ([facility]) [address] [place] [address] [phone] 5 04/19/2025 14:47:20 04/19/2025 15:31:41 Left flank pain 197024071 R10.A2 - Encourage monitoring of triggers; address soda consumptio n impact. Bilateral headache 27642 1005 R51.9 - Continue to evaluate symptoms; no immediate red flags noted. Screening mammography 24 662818 Z12.31 [id number] - Refer for screening mammogram per guideline recommenda tion. Osteoarthritis 471353725 M19.90 [id number] - Authorized refill of meloxicam per patient's request. [id number] Beltran Hahn MD [facility] ([facility]) [address] [place] [address] [phone] 5 05/19/2025 14:06:47 05/19/2025 15:05:05 Obstructive sleep apnea syndrome 69707358 G47.33 - Continued CPAP therapy as instructed based on compliance and symptom improvemen t. - Contact if new issues arise or symptoms worsen. [id number] THELMA AGUILERA [facility] ([facility]) [address] [place] [address] 05/21/2025 13:07:46 05/21/2025 13:42:02 Dysuria 72161500 R30.0 [id number] Discussed to take antibiotic as prescribed until [...] by Organization Details LastModified Time None Recorded Advance Directives Directive None Recorded Payers Insurance Date Sequence Insurance Name Policy Number Policy Moore Covered Member ID Moore Member ID Guarantor Name 05/18/2025 [place] - [facility] (MEDICARE) Nicole M Oxford [id number] Nicole M Oxford 05/24/2025 1 [facility] (MEDICARE REPLACEMENT/AD VANTAGE - PPO) [id number] Nicole M Oxford [id number] Nicole M Oxford 12/02/2022 1 [place] Nicole M Oxford [id number] Nicole M Oxford 12/02/2022 2 [facility] [place] ([place]AC[place] - [place] Nicole M Oxford [id number] Nicole M Oxford 03/23/2024 1 [facility] [place] ([place]ANT[place] - HMO) Nicole M Oxford [id number] Nicole M Oxford Notes Date Note Type Note Provider Name and Address Organization Details Recorded Time 5 text/html Annual WellnessReported by PatientSocial/Behavioral HistoryFor diet and nutrition, patient reportshigh caloric intakeandhigh carbohydrate meals. For fracture risk, patient reportshistory of fracturesandprevious musculoskeletal injuries. For physical activity, patient reportsdoes not exercise on a regular basis. For additional lifestyle factors, patient reportsno tobacco useandno alcohol intake.Mental Status:For depression risk, patient reportssleep disturbances or insomnia.Functional AbilityFor hearing, patient reportsno loss of hearing. For vision, patient reportsno vision problems. Pt is here for her annual with no complaints. Patient reports her chronic medical issues are stable on current medications. Patient is tolerating her medication without significant side effects. Beltran Hahn MD [address] [place] [address], [phone], [facility] 12/19/2024 17:22:23 5 text/html ROS as noted in the HPI walk [id number] swelling under left eye, has bump -itching, no pain. Denies eye drainage, eye itching, vision changes, or other skin issues. States the swelling is improved today. THELMA MICHAEL [address] [place] [address], [phone], [facility] 01/11/2025 17:45:23 5 text/html Skin LesionReported by PatientHPIFor location, patient reportsback. For quality, [...] of her meloxicam prescription. Beltran Hahn MD [address] [place] [address], [phone], [facility] 04/19/2025 15:29:53 5 text/html The patient is a 59-year-old female [...] sense of feeling rested. Beltran Hahn MD [address] [place], [phone], [facility] 05/19/2025 15:32:00 5 text/html ROS as noted in the HPI Walk inPossible UTI. Patient complains of increased urinary frequency, urgency, burning, back pain x1 day. Patient has not taken anything for symptoms. THELMA AGUILERA [address] [place], [phone], [facility] 05/21/2025 13:38:38 OBGyn Episode No OBEpisode recorded.
[2025-05-30 22:12] LABS: Glucose Urine UA Negative (Normal); Nitrate Urine Negative (Negative); Specific Gravity, Urine 1.028 (1.005-1.030)
[2025-05-30 22:17] LABS: Add Urine Microscopic? YES; Universal Test for UA Present (0)
--- NOTE | 2025-05-30 22:57 | ED_ITS ---
HPI - General Adult General: Chief complaint: General Medical Stated complaint: Possible UTI Time Seen by Provider: 05/30/25 21:53 History of Present Illness: Patient is a 59-year-old female presenting with dysuria that began this afternoon. She reports seeing a small amount of blood when wiping. She denies fever, chills, or flank pain. Of note, patient reports having a urinary tract infection approximately two weeks ago, which was diagnosed at [facility] and cultured, showing E. coli. She completed a 5-day course of antibiotics (taken twice daily) and a 3-day course of another medication for pain (taken three times daily) that she reports made her urine orange. She states she improved after the treatment but is now experiencing recurrent symptoms. The patient denies any systemic symptoms such as fever or chills with this current episode. Related Data Home Medications ?Medication ?Instructions ?Recorded ?Confirmed acetaminophen 325 mg capsule 325 mg PO QID PRN Pain 04/01/25 (Tylenol) iokomeyj-lgi-gwhcd ac 400 1 tab PO DAILY 01/25/2208/25 mcg-calcium carb 500 mg-vit K1 20 mcg tablet (Women's 50 Plus Multivitamin) paroxetine HCl 20 mg tablet 20 mg PO DAILY 01/25/22 calcium citrate 250 mg PO DAILY 07/04/2208/25 ferrous sulfate 324 mg (65 mg 324 mg PO DAILY 07/04/22 04/01/25 iron) tablet,delayed release magnesium oxide 400 mg PO DAILY 07/04/2208/25 amlodipine 5 mg tablet 10 mg PO DAILY 01/15/2308/25 bupropion HCl 150 mg 24 hr tablet, mg PO 06/02/2408/25 extended release fenofibrate 160 mg tablet mg PO 06/02/24 04/01/25 lisinopril 20 mg tablet mg PO 06/02/24 04/01/25 methocarbamol 750 mg tablet mg PO 06/02/24 04/01/25 Previous Rx's ?Medication ?Instructions ?Recorded atorvastatin 40 mg tablet 40 mg PO DAILY #90 tabs 12/30 10/21 hydrochlorothiazide 25 mg tablet 25 mg PO DAILY #30 ta bs 04/12/23 carvedilol 6.25 mg tablet 6.25 mg PO BID #60 tabs 03/01 12/22 cefdinir 300 mg capsule 300 mg PO BID 7 days #14 cap s 05/30/25 Allergies Allergy/AdvReac Type Severity Reaction Status Date / Time No Known Allergies Allergy Verified 04/01/25 14:35 PFS ED PFSH: Medical History (Updated 05/30/25 @ 23:39 by Oral Walker DO) Hyperlipidemia Hypertension Tubal Surgical History Hx of cholecystectomy S/P tubal ligation S/P knee replacement Family History Mother Cervical cancer Ovarian cancer Uterine cancer Social History Smoking and tobacco/nicotine status: former use of tobacco/nicotine Second hand smoke exposure: No Alcohol intake: never Substance/Drug Use: never Physical Exam Const: COMMON NORMALS: no acute distress GENERAL APPEARANCE: cooperative; not ill appearing and not frail appearing HENMT: COMMON NORMALS: normocephalic, atraumatic and Normal external nose present HEAD & SCALP: normocephalic and atraumatic FACE & SINUS: normal facial exam and face symmetric NOSE: Normal external nose present Eye: COMMON NORMALS: Equal, round and reactive pupils present and EOMs intact bilaterally PUPIL: Yes Equal, round and reactive pupils present Neck/C-Spine: GENERAL: Yes trachea midline Chest: CHEST: Yes Symmetrical chest wall rise Resp: COMMON NORMALS: normal respiratory effort, No retractions, No use of accessory muscles and clear to auscultation bilaterally AUSCULTATION: clear to auscultation bilaterally Cardio: COMMON NORMALS: regular rate and regular rhythm RATE: regular rate RHYTHM: regular rhythm GI: COMMON NORMALS: Normal to inspection, nondistended, normoactive bowel sounds present Extremity: COMMON NORMALS: no pedal edema Neuro: LYUDMILA COMA SCALE: document GCS findings Lyudmila coma scale eye opening: Spontaneous [place] coma scale verbal response: Orientated Lyudmila coma scale motor response: Obey commands Lyudmila coma scale total score: 15 SENSORY EXAM: Yes extremities (intact) Psych: COMMON NORMALS: speech normal SPEECH: Yes normal speech Skin: COMMON NORMALS: no rashes or lesions noted GENERAL SKIN EXAM: no rashes or lesions noted Course Vital Signs: Vital signs: Vital Signs Temperature 98.3 F 05/30/25 20:55 Pulse Rate 76 05/30/25 20:55 Respiratory Rate 16 05/30/25 20:55 Blood Pressure 130/64 05/30/25 20:55 Pulse Oximetry 98 05/30/25 20:55 Oxygen Delivery Me thod Room Air 05/30/25 20:55 MDM - General Adult Medical Decision Making Vitals are stable here. She is afebrile. She does have some blood in her urine. No flank pain. White blood cell count in the urine is greater than 100. 2+ leukocyte esterase. 3+ bacteria. She will be treated for UTI. No clinical evidence for kidney stone at this point. It appears that she was treated with nitrofurantoin previously, short course which is likely why symptoms retured. Lab Data Laboratory Results Urine Color Yellow (Yellow) 05/30/25 21:06 Urine Appearance Turbid (CLEAR) A 05/30/25 21:06 Urine pH 5.5 (5-7) 05/30/25 21:06 Ur Specific [place] 1.028 (1.005-1.030) 05/30/25 21:06 Urine Protein 1+ (Negative) A 05/30/25 21:06 Urine Glucose (UA) Negative (Normal) 05/30/25 21:06 Urine Ketones Trace (Negative) 05/30/25 21:06 Urine Blood 3+ (Negative) A 05/30/25 21:06 Urine Nitrate Negative (Negative) 05/30/25 21:06 Urine Bilirubin Negative (Negative) 05/30/25 21:06 Urine Urobilinogen 1.0 mg/dL (Negative) 05/30/25 21:06 Ur Leukocyte Esterase 2+ (Negative) A 05/30/25 21:06 Urine RBC 21-50 /hpf (0-2) H 05/30/25 21:06 Urine WBC >100 /hpf (0-5) H 05/30/25 21:06 Ur Squamous Epith Cells 10-15 /hpf (0-5) H 05/30/25 21:06 Amorphous Sediment Not Reportable 05/30/25 21:06 Urine Bacteria 3+ /hpf (NONE) H 05/30/25 21:06 Hyaline Casts 1.21 /lpf 05/30/25 21:06 No radiology studies performed this visit Discharge Plan Discharge Patient Disposition: Home Clinical Impression: UTI (urinary tract infection) Condition: Stable Prescriptions: New cefdinir 300 mg capsule 300 mg PO BID 7 Days Qty: 14 0RF No Action amlodipine 5 mg tablet 10 mg PO DAILY calcium citrate 250 mg calcium tablet 250 mg PO DAILY ferrous sulfate 324 mg (65 mg iron) tablet,delayed release (DR/EC) 324 mg PO DAILY magnesium oxide 400 mg magnesium capsule 400 mg PO DAILY hydrochlorothiazide 25 mg tablet 25 mg PO DAILY Qty: 30 6RF fenofibrate 160 mg tablet PO methocarbamol 750 mg tablet PO bupropion HCl 150 mg tablet extended release 24 hr PO lisinopril 20 mg tablet PO atorvastatin 40 mg tablet 40 mg PO DAILY Qty: 90 1RF carvedilol 6.25 mg tablet 6.25 mg PO BID Qty: 60 0RF Rx Instructions: PATIENT KEEP APPOINTMENT ON 03/30/24 FOR FURTHER REFILLS must administer with a meal/food paroxetine HCl 20 mg Tablet 20 mg PO DAILY acetaminophen [Tylenol] 325 mg Capsule 325 mg PO QID PRN (Reason: Pain) Women's 50 Plus Multivitamin 400 mcg-500 mg calcium-20 mcg Tablet 1 tab PO DAILY Discharge Orders: Discharge ED (Routine); Ordered 05/30/25 Ordered By: Oral Walker Referrals: Arturo Hahn MD [Primary Care Provider, Family Practice] - 4-7 days Patient Instructions: Urinary Tract Infection in Women (ED), Opioid Safety, Pain Management, Patient Portal & Wilbert Instructions Activity Restrictions/Additional Instructions: Medication as directed. Drink plenty of fluids. Return for fever greater than 100 ?F despite 2-3 more doses of antibiotics, worsening pain despite treatment, vomiting liquids or medications, any other concerning symptoms. Call your doctor tomorrow for follow-up appointment next week. You should have your urine retested at some point to ensure you have cleared the infection Print Language: Kuwaiti Coding Level of Care Code ED Communication Center Operator for Tony Carreon
== END 2025-05-31 00:04 | disposition home or self-care (01) ==
PROVIDERS: Emergency Provider Emergency Medicine; PCP Family Medicine
DX: N39.0 Urinary tract infection, site not specified (principal); Z87.891 Personal history of nicotine dependence; E78.5 Hyperlipidemia, unspecified; I10 Essential (primary) hypertension
CPT/HCPCS: 81001; 99283; J9999

== ENCOUNTER 2025-06-11 02:46 | Emergency (ER) | payer MEDICARE, SELFPAY ==
--- OUTSIDE RECORDS SUMMARY | 2025-06-11 02:53 | XMS_ITS | Clinical Summary ---
Author Organization [facility] Address [address] 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
--- OUTSIDE RECORDS SUMMARY | 2025-06-11 02:53 | XMS_ITS | Continuity of Care Document ---
Author Organization JUAN - Tee Olvera [facility], LCharly, [facility] ([facility]) Address [address] [place] [address] Care Team Providers Care Cardroom Hand Name Role Phone BELTRAN HAHN Primary Care [...] By Organization Details Last Modified Time 04/19/2025 [id number] - Keep a log of back pain [...] Details Recorded Time Sukumar azevedo hypertmaycol lindsey 01751961 Active 2022 OLAMIDE silva [facility] 3 15:58:22 Hypercho lesterol emia 88045541 Active 2022 OLAMIDE silva [facility] 3 15:58:32 Gastriti s 4869521 Completed 202202/28/2023 Beltran Hahn MD [address] [place] [address], [address] 5, [facility] 5 17:54:30 Arthriti s of knee 869796773 Active 2022 OLAMIDE silva [facility] 3 16:57:32 Insomnia 643116388 Active 2022 Beltran Hahn MD [address] [place] [address], [address] 5, [facility] 3 12:17:39 Severe recurren t major depressi on without psychoti c features 12198250 Active 2023 Beltran Hahn MD [address] [place] [address], [address]561 5, [facility] 4 16:07:16 Synoviti s and tenosyno vitis of joint of hand Active 2023 Beltran Hahn MD [address] [place] [address], [address] 5, [facility] 4 16:12:49 Morbid obesity 556976870 Active 2023 Beltran Hahn MD [address] [place] [address], [address] 5, [facility] 4 11:28:38 Pain of right shoulder joint 20799863701 010880 Active 2023 Beltran Hahn MD [address] [place] [address], [address] 5, [facility] 4 16:12:17 Dental abscess 039568083 Active 2023 Beltran Hahn MD [address] [place] [address], 760[address]594 5, [facility] 4 17:19:49 Gastriti s 8837396 Active 2024 Beltran Hahn MD [address] [place] [address], 30[address]774 5, [facility] 5 17:54:30 Sleep apnea 41282503 Active 2024 CPAP started around 03/31/20 Carolina silva [facility] 5 14:13:54 Obstruct sirisha sleep apnea syndrome 22930648 Active 2024 Daksha silva [facility] 5 12:34:59 Bilatera l headache 042089482 Active 2024 Beltran Hahn MD [address] [place] [address], 74[address]361 5, [facility] 5 15:29:26 Osteoart hritis 970758660 Active 2024 Beltran Hahn MD [address] [place], [address], [facility], Marilu 15:29:27 Problem Notes None recorded. Procedures Surgical History Date Name Laterality Status Provider Name and Address Organization Details Recorded Time Tubal Ligation [facility] 12:11:38 cholecystectomy completed [facility] 04/01/2024 12:11:44 Imaging Results None recorded. Procedure [...] Not Available Not Available Not Avai lable cefdinir 300 mg capsule TAKE 1 CAPSULE BY MOUTH TWICE A DAY FOR 7 DAYS active Not Available Not Available No t Available amoxicill in 875 mg-potass ium clavulana te 125 mg tablet TAKE 1 TABLET BY MOUTH EVERY 12 HOURS 12/15 completed Not Available Not Available Not Available bupropion HCl XL 150 mg 24 hr tablet, extended release TAKE 1 TABLET BY MOUTH EVERY DAY active Not Available Not Available No t Available nitrofura ntoin monohydra te/macroc rystals 100 mg capsule Take 1 capsule every 12 hours by oral route for 5 days. 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 56 g 99 % 99 /min 20 /min 97.2 [degF] 112/72 mm[Hg] [facility], [facility].. 14:57:01 Social History Question Answer Notes LastModified by Organizat ion Details LastModified Time Tobacco Smoking Status Never Smoker VALENTÍN VERA HERNANDEZ silva [facility], [facility]. 04/01/2024 12:11:21 What Is Your Level Of Caffeine Consumption? Occasional [email or web address] Information not available 12/15/2024 Which Illicit Or Recreational Drugs Have You Used? Marijuana [email or web address] Information not available 12/15/2024 What Type Of Marijuana Have You Used? Smoke [email or web address] Information not available 04/19/2025 Do You Or Have You Ever Used Marijuana? Current Every Day User [email or web address] Information not available 04/19/2025 What Was The Date Of Your Most Recent Tobacco Screening? 05/19/2025 [email or web address] Information not available 05/19/2025 Was Your Marijuana Use Recreational Or Medical? Medical [email or web address] Information not available 04/19/2025 Sex: Unknown Functional Status Question Answer Note LastModified by Organizat ion Details LastModified Time Do you use any illicit or recreational drugs? Yes [email or web address] Information not available 12/15/2024 What is your level of alcohol consumption? None [email or web address] Information not available 12/15/2024 Mental Status None recorded. Family History Nothing Reported Notes:Adopted. No HX Medical History Condition Response Coronary Artery Disease N Gout N Other N Blood Diseases N Kidney Stones N Hyperthyroidism N Breast Cancer N Blood Transfusion N Hypothyroidism N Lung Disease N COPD N Depression Y Developmental or Behavioral Disorders N Defects or Inherited Disease N Breast Problem N Difficulty Swallowing N Anesthesia Complications N Meniere's disease N Anxiety Disorder N Muscle, Joint, or Bone Problems N Vision or Eye Problems N Arthritis N Polyps N Infertility N Cancer N Varicosities N Stroke N Endometriosis N Bladder or Kidney Problems N High Cholesterol Y Liver Disease N Fibromyalgia N Headaches N Kidney Disease N Allergies/Hayfever N Heart [...] Immunizations Vaccine Type Date Status Note Provider Pratik romano and Address Organization Details Recorded Time Tdap 12/13/2022 completed Beltran Hahn MD [address] [place] [address], [address], [facility] 12/14/2022 09:10:12 Tdap 05/20/2015 completed OLAMIDE silva [facility] 12/14/2022 10:33:16 Influenza, split virus, quadrivalent, PF 06/01/2021 completed OLAMIDE silva [facility] 12/14/2022 10:33:16 Influenza, split virus, trivalent, PF 04/22/2024 completed Beltran Hahn MD [address] [place] [address], [address], [facility] 04/23/2024 10:17:47 Past Encounters Encounter ID Performer Location Encounter Start Date Encounter Closed Date Diagnosis/Indication Diagnosis SNOMED-CT Code Diagnosis ICD10 Code Diagnosis IMO Codes Diagnosis Note [id number] Beltran Hahn MD [facility] ([facility]) [address] [place] [address] 04/19/2025 14:47:20 04/19/2025 15:31:41 Left flank pain 577584200 R10.A2 - Encourage monitoring of triggers; address soda consumptio n impact. Bilateral headache 56249 1005 R51.9 - Continue to evaluate symptoms; no immediate red flags noted. Screening mammography 643133 Z12.31 11117931 - Refer for screening mammogram per guideline recommenda tion. Osteoarthritis 528967792 M19.90 406028097 - Authorized refill of meloxicam per patient's request. Health Concerns Section Related Observation LastModified by Organization Detai ls LastModified Time None Recorded Concern Status LastModified by Organization Details LastModified Time None Recorded Payers Encounter Date Sequence Insurance Name Policy Number Policy Moore Covered Member ID Moore Member ID Guarantor Name 04/19/2025 1 [facility] (MEDICARE REPLACEMENT/A DVANTAGE - PPO) [id number] Nicole Villa [id number] Nicole Villa Notes Date Note Type Note [...] of her meloxicam prescription. Beltran Hahn MD [address] [place] [address], [address], [facility], Evette. 04/19/2025 15:29:53 OBGyn Episode No OBEpisode recorded.
--- OUTSIDE RECORDS SUMMARY | 2025-06-11 02:53 | XMS_ITS | Continuity of Care Document ---
Author Organization JUAN Dotson [facility] Mili, LCharly, [facility] ([facility]) Address [address] [place] [address] Care Team Providers Care Ham Clerk Name Role Phone BELTRAN HAHN Primary Care [...] By Organization Details Last Modified Time 05/19/2025 [id number] - Keep using you r CPAP every [...] Address Organization Details Recorded Time Sukumar lindsey 38260343 Active 2022 OLAMIDE silva [facility] 3 15:58:22 Hypercho lesterol emia 25436447 Active 2022 OLAMIDE silva [facility] 3 15:58:32 Gastriti s 6805187 Completed 202202/28/2023 Beltran Hahn MD [address] [place] [address], [address] 5, [facility] 5 17:54:30 Arthriti s of knee 796013530 Active 2022 OLAMIDE silva [facility] 3 16:57:32 Insomnia 596594927 Active 2022 Beltran Hahn MD [address] [place] [address], [address] 5, [facility] 3 12:17:39 Severe recurren t major depressi on without psychoti c features 97563606 Active 2023 Beltran Hahn MD [address] [place] [address], 17[address]159 5, [facility] 4 16:07:16 Synoviti s and tenosyno vitis of joint of hand Active 2023 Beltran Hahn MD [address] [place] [address], [address] 5, [facility] 4 16:12:49 Morbid obesity 197861976 Active 2023 Beltran Hahn MD [address] [place] [address], [address] 5, [facility] 4 11:28:38 Pain of right shoulder joint 43551889047 923861 Active 2023 Beltran Hahn MD [address] [place] [address], [address] 5, [facility] 4 16:12:17 Dental abscess 512180563 Active 2023 Beltran Hahn MD [address] [place] [address], [phone] 5, [facility] 4 17:19:49 Gastriti s 9741917 Active 2024 Beltran Hahn MD [address] [place] [address], 2[address] 5, [facility] 5 17:54:30 Sleep apnea 04233595 Active 2024 CPAP started around 03/31/20 [facility] 14:13:54 Obstruct sirisha sleep apnea syndrome 48494290 Active 2024 Daksha silva [facility] 5 12:34:59 Bilatera l headache 059432875 Active 2024 Beltran Hahn MD [address] [place] [address], 48[address] 5, [facility] 5 15:29:26 Osteoart hritis 730411866 Active 2024 Beltran Hahn MD [address] [place] [address], [address] 5, [facility] 15:29:27 Problem Notes None recorded. Procedures Surgical History Date Name Laterality Status Provider Name and Address Organization Details Recorded Time Tubal Ligation completed VALENTÍN GAMEZ [facility]DE[facility] 04/01/2024 12:11:38 cholecystectomy completed [facility] 04/01/2024 12:11:44 Imaging Results None recorded. Procedure [...] tin at bedtime 03/01 completed Recorded 02/21/20 22 3:05PM by Beltran Hahn MD, Office Visit; Refill Quantity : 90; Tablet; Not Available Not Available Not Available meloxicam daily 03/21 completed 83193; Recorded 09/12/19 6:54AM by Olamide Brantley (Authori [...] sure of the mg. S. Huddlest on, MANGLE FEEDER Not Available Not Available Not Available Vitals Date Recorded Body height Body mass index (BMI) Body weight Body temperature Oxygen saturation Heart rate Systolic And Diastolic Provider Name and Address Organization Details Last Updated DateTime 5 157.48 cm 41 kg/m2 273631. 69 g 97 [degF] 99 % 61 /min 108/70 mm[Hg] Carolina Zuluaga [facility], [facility]ang 14:16:28 Social History Question Answer Notes LastModified by Organizat ion Details LastModified Time Tobacco Smoking Status Never Smoker VALENTÍN silva [facility], L.L.CFang 04/01/2024 12:11:21 What Is Your Level Of Caffeine Consumption? Occasional [email or web address] Information not available 12/15/2024 Which Illicit Or Recreational Drugs Have You Used? Marijuana [email or web address] Information not available 12/15/2024 What Type Of Marijuana Have You Used? Smoke [email or web address] Information not available 04/19/2025 Do You Or Have You Ever Used Marijuana? Current Every Day User [email or web address] Information not available 04/19/2025 What Was The Date Of Your Most Recent Tobacco Screening? 05/19/2025 [email or web address] Information not available 05/19/2025 Was Your Marijuana Use Recreational Or Medical? Medical Information not available 04/19/2025 Sex: Unknown Functional Status Question Answer Note LastModified by Organizat ion Details LastModified Time Do you use any illicit or recreational drugs? Yes Information not available 12/15/2024 What is your level of alcohol consumption? None [email or web address] Information not available 12/15/2024 Mental Status None recorded. Family History Nothing Reported Notes:Adopted. No HX Medical History Condition Response Coronary Artery Disease N Other N Gout N Kidney Stones N Blood Diseases N Hyperthyroidism N Breast Cancer N Blood Transfusion N Depression Y Hypothyroidism N Lung Disease N COPD N Defects or Inherited Disease N Developmental or Behavioral Disorders N Breast Problem N Difficulty Swallowing N [...] Time Tdap 12/13/2022 completed Beltran Hahn MD [address] [place] [address], [phone], [facility] 12/14/2022 09:10:12 Tdap 05/20/2015 completed OLAMIDE silva [facility] 12/14/2022 10:33:16 Influenza, split virus, quadrivalent, PF 06/01/2021 completed OLAMIDE silva [facility] 12/14/2022 10:33:16 Influenza, split virus, trivalent, PF 04/22/2024 completed Beltran Hahn MD [address] [place] [address], [address], [facility] 04/23/2024 10:17:47 Past Encounters Encounter ID Performer Location Encounter Start Date Encounter Closed Date Diagnosis/Indication Diagnosis SNOMED-CT Code Diagnosis ICD10 Code Diagnosis IMO Codes Diagnosis Note [id number] Beltran Hahn MD [facility] ([facility]) [address] [place] [address] 04/19/2025 14:47:20 04/19/2025 15:31:41 Left flank pain 578921387 R10.A2 - Encourage monitoring of triggers; address soda consumptio n impact. Bilateral headache 91991 1005 R51.9 - Continue to evaluate symptoms; no immediate red flags noted. Screening mammography 24 457094 Z12.31 80792965 - Refer for screening mammogram per guideline recommenda tion. Osteoarthritis 361850981 M19.90 778426629 - Authorized refill of meloxicam per patient's request. [id number] Beltran Hahn MD [facility] ([facility]) [address] [place] [address] 05/19/2025 14:06:47 05/19/2025 15:05:05 Obstructive sleep apnea syndrome 61201539 G47.33 - Continued CPAP therapy as instructed [...] Moore Member ID Guarantor Name 05/19/2025 1 [facility] (MEDICARE REPLACEMENT/A DVANTAGE - PPO) [id number] Nicole Villa [id number] Nicole Villa Notes Date Note Type Note [...] sense of feeling rested. Beltran Hahn MD [address] [place] [address], [address], [facility], L. 05/19/2025 15:32:00 OBGyn Episode No OBEpisode recorded.
--- OUTSIDE RECORDS SUMMARY | 2025-06-11 02:53 | XMS_ITS | Encounter Summary ---
Author Organization [facility] Address [address] [place] [address] Care Team Providers Care Cuff Slitter Name Role Phone Nya Sequeira MD Primary Care Provider [phone] Encounter Details Date Type Department Care Team (Late st Contact Info) Description 06/08/2025 External Device Data [place] ABSTRACTION Provider, Abstract NO ADDRESS ON FILE Social History Tobacco Use Types Packs/Day Years Used Date Smoking Tobacco: Former Cigarettes 0 Q uit: 07/01/1992 Smokeless Tobacco: Never Alcohol Use Standard Drinks/Week Comments No 0 (1 standard drink = 0.6 oz pur e alcohol) Comments Unknown Sex and Gender Information Value Date Recorded Sex Assigned at Not on file Legal Sex Female 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 [facility] [address] [place] [address] PCP - General Family Practice 07/04/15 documented as of this encounter
--- OUTSIDE RECORDS SUMMARY | 2025-06-11 02:53 | XMS_ITS | Clinical Summary ---
Author Organization [facility] Address [address] [place] [address] [address] [place] [address] Care Team Providers Care Deboning Team Leader Name Role Phone Nya Sequeira MD Primary Care Provider [phone] Allergies No known active allergies Medications lisinopril [...] patient's age to complete this topic Insurance [facility] Care Teams Deboning Team Leader Relationship Specialty Start Date End Date Nya Sequeira MD [address] [address] PCP - General Family Practice 07/04/15
--- OUTSIDE RECORDS SUMMARY | 2025-06-11 02:53 | XMS_ITS | Continuity of Care Document ---
Author Organization JUAN Tee [facility], [place], [facility] ([facility]) Address [address] [place] [address] Care Team Providers Care Industrial Maintenance Repairer Name Role Phone BELTRAN HAHN Primary Care Provider [phone] Assessment No assessment recorded. Plan of Treatment Reminders Order Date Submit Date Provider Last Modified By Organization Details Last Modified Time Details Appointments None recorded. Lab culture, urine 2024 025 [place] [employer] [facility], [address] [place] [address], [facility] [address] [place], [address], 5 11:03:16 urinalysis, dipstick 2024 025 [facility] ([facility]), [address] [place], [address], 13:31:27 Referral None recorded. Procedures None recorded. Surgeries None recorded. Imaging None recorded. Medication Orders nitrofurant oin monohydrate /macrocryst als 100 mg capsule 2024 025 [facility] #[id number], [address], [address], [address], 5 05:01:00 phenazopyri dine 200 mg tablet 2024 025 [facility] #[id number], [address], [address], [address], 05:01:16 Patient TargetsNo targets recorded. Patient InstructionsNo instructions recorded. Reason for Referral None Reported. Results Created Date Observation Date Name Description Value Unit Range Abnormal Flag Note LastModifiedBy Organization Detail LastModifiedTime 05/21/2005/24/2025 CULTU RE, URINE , ROUTI NE culture, urine, routine SEE NOTE abnormal CULTU RE, URINE , ROUTI NE Micro Numbe r: [id number] Test Statu s: Final Speci men [...] lexin and lorac arbef . Not Available [facility] [address] [place], [address], 05/24/2025 11:03:16 05/21/20 25 05/21/2025 urina lysis , dipst ick Color Yellow Not Available [facility] ([facility]) [address] [place] [address], [phone], 05/21/2025 13:17:51 05/21/20 25 05/21/2025 urina lysis , dipst ick Appearance Clear Not Available [facility] ( [facility] [address] [place] [address], [phone], 05/21/2025 13:17:51 05/21/20 25 05/21/2025 urina lysis , dipst ick Glucose Negati ve Not Available [facility] ([facility]) [address] [place] [address], [address], 05/21/2025 13:17:51 05/21/20 25 05/21/2025 urina lysis , dipst ick Bilirubin Negati ve Not Available [facility] ([facility]) [address] [place], [address], 05/21/2025 13:17:51 05/21/20 25 05/21/2025 urina lysis , dipst ick Ketone Negati ve Not Available [facility] ([facility]) [address] [place] [address], [address], 05/21/2025 13:17:51 05/21/20 25 05/21/2025 urina lysis , dipst ick Specific [place] 1.030 Not Available [facility] ( [facility]) [address] [place], [address], 05/21/2025 13:17:51 05/21/20 25 05/21/2025 urina lysis , dipst ick Leukocytes Trace Not Available [facility] [address] [place], [address], 05/21/2025 13:17:51 05/21/20 25 05/21/2025 urina lysis , dipst ick Nitrite negati ve Not Available [facility] ([facility]) [address] [place], [address], 05/21/2025 13:17:51 05/21/20 25 05/21/2025 urina lysis , dipst ick Urobilinogen .2 Not Available [facility] ([facility]) [address] [place], [address], 05/21/2025 13:17:51 05/21/20 25 05/21/2025 urina lysis , dipst ick Protein 30 Not Available [facility] ([facility]) [address] [place], [address], 05/21/2025 13:17:51 05/21/20 25 05/21/2025 urina lysis , dipst ick pH 5.5 Not Available [facility] ([facility]) [address] [place], [address], 05/21/2025 13:17:51 05/21/20 25 05/21/2025 urina lysis , dipst ick Blood Negati ve Not Available [facility] ([facility]) [address] [place], [address], 05/21/2025 13:17:51 Result Notes None recorded. Problems Name Problem SNOMED Code Status Onset Date Resolution Date Notes Provider Name and Address Organization Details Recorded Time Sukumar azevedo hyperten rosalia 06753456 Active 2022 OLAMIDE silva [facility] 3 15:58:22 Hypercho lesterol emia 38889394 Active 2022 OLAMIDE silva [facility] 3 15:58:32 Gastriti s 5723968 Completed 202202/28/2023 Beltran Hahn MD [address] [place] [phone], [facility] 5 17:54:30 Arthriti s of knee 486557661 Active 2022 OLAMIDE silva [facility] 3 16:57:32 Insomnia 727281121 Active 2022 Beltran Hahn MD [address] [place] [phone] 5, [facility] 3 12:17:39 Severe recurren t major depressi on without psychoti c features 09350672 Active 2023 Beltran Hahn MD [address] [place] [phone] 5, [facility] 4 16:07:16 Synoviti s and tenosyno vitis of joint of hand Active 2023 Beltran Hahn MD [address] [place] [phone] 5, [facility] 4 16:12:49 Morbid obesity 159138915 Active 2023 Beltran Hahn MD [address] [place] [phone] 5, [facility] 4 11:28:38 Pain of right shoulder joint 70102042767 004211 Active 2023 Beltran Hahn MD [address] [place] [address], [phone], [facility] 4 16:12:17 Dental abscess 588963393 Active 2023 Beltran Hahn MD [address] [place] [phone] 5, [facility] 4 17:19:49 Gastriti s 4022915 Active 2024 Beltran Hahn MD [address] [place] [address] [phone] 5, [facility] 5 17:54:30 Sleep apnea 38946398 Active 2024 CPAP started around 03/31/20 25 Carolina Zan [facility] 5 14:13:54 Obstruct sirisha sleep apnea syndrome 28708560 Active 2024 Dakshacely Page [facility] 5 12:34:59 Bilatera l headache 333149928 Active 2024 Beltran Hahn MD [address] [place] [phone] 5, [facility] 5 15:29:26 Osteoart hritis 964024008 Active 2024 Beltran Hahn MD [address] [place] [phone], [facility] 5 15:29:27 Problem Notes None recorded. Procedures Surgical History Date Name Laterality Status Provider Name and Address Organization Details Recorded Time Tubal Ligation [facility] 12:11:38 cholecystectomy completed [facility] 12:11:44 Imaging Results None recorded. Procedure [...] Available Not Available meloxicam daily 03/21 completed 99629; Recorded 09/12/19 6:54AM by Olamide Brantley (i [...] sure of the mg. S. 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 31 g 99 % 66 /min 98.9 [degF] 130/78 mm[Hg] Heidi Hutchison [facility] 5 13:22:08 Social History Question Answer Notes LastModified by Organizat ion Details LastModified Time Tobacco Smoking Status Never Smoker VALENTÍN silva [facility] 04/01/2024 12:11:21 What Is Your Level Of Caffeine Consumption? Occasional [email or web address] Information not available 12/15/2024 Which Illicit Or Recreational Drugs Have You Used? Marijuana [email or web address] Information not available 12/15/2024 What Type Of Marijuana Have You Used? Smoke [email or web address] Information not available 04/19/2025 Do You Or Have You Ever Used Marijuana? Current Every Day User [email or web address] Information not available 04/19/2025 What Was The Date Of Your Most Recent Tobacco Screening? 05/19/2025 [email or web address] Information not available 05/19/2025 Was Your Marijuana Use Recreational Or Medical? Medical [email or web address] Information not available 04/19/2025 Sex: Unknown Functional Status Question Answer Note LastModified by Organizat ion Details LastModified Time Do you use any illicit or recreational drugs? Yes [email or web address] Information not available 12/15/2024 What is your level of alcohol consumption? None [email or web address] Information not available 12/15/2024 Mental Status None [...] Time Tdap 12/13/2022 completed Beltran Hahn MD [address] [place] [address], [phone], [facility] 12/14/2022 09:10:12 Tdap 05/20/2015 completed OLAMIDE silva [facility] 12/14/2022 10:33:16 Influenza, split virus, quadrivalent, PF 06/01/2021 completed OLAMIDE silva [facility] 12/14/2022 10:33:16 Influenza, split virus, trivalent, PF 04/22/2024 completed Beltran Hahn MD [address] [place] [address], [phone], [facility] 04/23/2024 10:17:47 Past Encounters Encounter ID Performer Location Encounter Start Date Encounter Closed Date Diagnosis/Indication Diagnosis SNOMED-CT Code Diagnosis ICD10 Code Diagnosis IMO Codes Diagnosis Note [id number] Beltran Hahn MD [facility] ([facility]) [address] [place] [phone] 05/19/2025 14:06:47 05/19/2025 15:05:05 Obstructive sleep apnea syndrome 99165261 G47.33 - Continued CPAP therapy as instructed based on compliance and symptom improvemen t. - Contact if new issues arise or symptoms worsen. [id number] THELMA AGUILERA [facility] ([facility]) [address] [place] [phone] 05/21/2025 13:07:46 05/21/2025 13:42:02 Dysuria 12583319 R30.0 16987 Discussed to take antibiotic as prescribed until [...] Moore Member ID Guarantor Name 05/21/2025 1 [facility] (MEDICARE REPLACEMENT/A DVANTAGE - PPO) [id number] Nicole Beavers [place] [id number] Nicole Beavers [place] Notes Date Note Type Note Provider Name and Address Organization Details Recorded Time 05/21/2025 text/html ROS as noted in the HPI Walk inPossible UTI. Patient complains of increased urinary frequency, urgency, burning, back pain x1 day. Patient has not taken anything for symptoms. CHRIS FLOR, [facility] [address] [place] [address], [phone], [facility] 05/21/2025 13:38:38 OBGyn Episode No OBEpisode recorded.
--- OUTSIDE RECORDS SUMMARY | 2025-06-11 02:53 | XMS_ITS | Data Portability ---
Author Organization [facility] Tee Olvera [facility], [facility], [facility] Address [address] [address] Care Team Providers Care Prick Stitcher Name Role Phone BELTRAN HAHN Primary Care Provider [phone] Assessment Encounter Date Assessment Date Assessment LastModified [...] None recorded. Lab culture, urine 2024 025 TIFFANIELearnUp [facility], [address] [place] [address] 248, [address] [facility] [place], [address], 11:03:16 urinalysis, dipstick 2024 025 [facility] ([facility]), [address] [place], [address], 13:31:27 lipid panel, blood 2024 025 [facility], [address], [address], [place], [address], 08:00:17 CMP, serum or plasma 2024 025 [facility], [address] [facility] [address], [address], [place], [address], 08:00:15 CBC 2024 025 [facility], [address], [address], [place], [address], 09:34:21 Referral None recorded. Procedures None recorded. Surgeries None recorded. Imaging None recorded. Medication Orders nitrofurant oin monohydrate /macrocryst als 100 mg capsule 2024 025 [facility] #[id number], [address] [facility] [address], [facility], [place], [address], 05:01:00 phenazopyri dine 200 mg tablet 2024 025 [facility]/Pharmacy #[id number], [address], [facility], [place], [address], 05:01:16 trazodone 50 mg tablet 2024 025 TIFFANIE [facility], [address] [place] [address], [address], [place], [place], [id number], 17:53:06 omeprazole 40 mg capsule,del ayed release 2024 025 dcrase [facility], [address] [facility] [place], [address], [place], [place], [id number], 10:45:19 Patient TargetsNo targets recorded. Patient Instructions Encounter Date Encounter Id Patient Instructions Last Modified By Organization Details Last Modified Time 04/19/2025 [id number] - Keep a log of back pain [...] conditions. [id number] Not available 04/19/2025 15:20:14 05/19/2025 [id number] - Keep using you r CPAP every [...] mg/dL 60.0-9 9.0 high Not Available [facility] [address] [facility] [address], [place], [address], 12/16/2024 08:00:15 12/17/1912/16/2024 CMP (FEMA LE) BUN (blood urea nitrogen) 25.0 mg/dL 10.0-2 6.0 Not Available [facility] [address] [facility], [place], [address], 12/16/2024 08:00:15 12/17/1912/16/2024 CMP (FEMA LE) creatinine (serum) 1.3 mg/dL 0.4-1. 5 Not Available [facility] [address] [facility] [address], [place], [address], 12/16/2024 08:00:15 12/17/1912/16/2024 CMP (FEMA LE) BUN/creatini ne ratio 19.23 ratio Not Available [facility] [address] [facility] [address], [place], [address], 12/16/2024 08:00:15 12/17/1912/16/2024 CMP (FEMA LE) eGFR calculated 44.4 Not Available [facility] [address] [facility] [address], [place], [address], 12/16/2024 08:00:15 12/17/1912/16/2024 CMP (FEMA LE) total protein 7.5 g/dL 6.0-8. 5 Not Available [facility] [address] [facility] [address], [place], [address], 12/16/2024 08:00:15 12/17/1912/16/2024 CMP (FEMA LE) total bilirubin 0.6 mg/dL 0.2-1. 3 Not Available [facility] [address] [facility] [address], [place], [address], 12/16/2024 08:00:15 12/17/19 25 12/16/2024 CMP (FEMA LE) albumin 4.6 g/dL 3.5-5. 5 Not Available [facility] [address] [facility], [place], [address], 12/16/2024 08:00:15 12/17/1912/16/2024 CMP (FEMA LE) globulin 2.9 calc Not Available [facility] [address] [place] [facility], [place], [address], 12/16/2024 08:00:15 12/17/1912/16/2024 CMP (FEMA LE) AST (SGOT) 71.0 U/L 0.0-46 .0 high Not Available [facility] [address] [facility] [address], [place], [address], 12/16/2024 08:00:15 12/17/1912/16/2024 CMP (FEMA LE) altv (SGPT) 38.0 U/L 13.0-6 9.0 normal Not Available [facility] [address] [facility], [place], [address], 12/16/2024 08:00:15 12/17/1912/16/2024 CMP (FEMA LE) A/G ratio 1.6 ratio Not Available [facility] [address] [facility] [address], [place], [address], 12/16/2024 08:00:15 12/17/1912/16/2024 CMP (FEMA LE) ALP phos 35.0 U/L 30.0-1 40.0 normal Not Available [facility] [address] [place] [facility], [place], [address], 12/16/2024 08:00:15 12/17/1912/16/2024 CMP (FEMA LE) calcium 9.4 mg/dL 8.4-10 .5 Not Available [facility] [address] [facility] [address], [place], [address], 12/16/2024 08:00:15 12/17/1912/16/2024 CMP (FEMA LE) sodium 138.0 mmol/ L 136.0- 145.0 Not Available [facility] [address] [facility] 1, [place], [address], 12/16/2024 08:00:15 12/17/1912/16/2024 CMP (FEMA LE) potassium 4.0 mmol/ L 3.5-5. 1 Not Available [facility] [address] [facility] 1, [place], [address], 12/16/2024 08:00:15 12/17/1912/16/2024 CMP (FEMA LE) chloride 104.0 mmol/ L 98.0-1 10.0 normal Not Available [facility] [address] [facility] 1, [place], [address], 12/16/2024 08:00:15 12/17/1912/16/2024 CMP (FEMA LE) C02 27.0 mmol/ L 22.0-3 1.0 Not Available [facility] [address] [facility] 1, [place], [address], 12/16/2024 08:00:15 12/17/1912/16/2024 CMP (FEMA LE) anion gap 7.0 calc Not Available [facility] [address] [facility] 1, [place], [address], 12/16/2024 08:00:15 12/17/1912/16/2024 CMP (FEMA LE) osmolality 291.1 calc Not Available [facility] [address] [place], [address], 12/16/2024 08:00:15 12/17/1912/16/2024 LIPID PROFI LE (FEMA LE) cholesterol 171.0 mg/dL 0.0-20 0.0 Not Available [facility] [address] [address], [place], [address], 12/16/2024 08:00:17 12/17/19 25 12/16/2024 LIPID PROFI LE (FEMA LE) trig 226.0 mg/dL 0.0-15 0.0 high Not Available [facility] [address] [address], [place], [address], 12/16/2024 08:00:17 12/17/1912/16/2024 LIPID PROFI LE (FEMA LE) HDL - direct 50.0 mg/dL >40.0 Not Available [facility] [address] [address], [place], [address], 12/16/2024 08:00:17 12/17/1912/16/2024 LIPID PROFI LE (FEMA LE) VLDL - direct 45.2 mg/dL Not Available [facility] [address] [address], [place], [address], 12/16/2024 08:00:17 12/17/1912/16/2024 LIPID PROFI LE (FEMA LE) LDL - direct 75.8 mg/dL 0.0-13 0.0 Not Available [facility] [address] [address], [place], [address], 12/16/2024 08:00:17 12/17/1912/16/2024 CBC WBC 11.0 x10 4.0-10 .5 high Not Available [facility] [address] [address], [place], [address], 12/16/2024 09:34:20 12/17/19 25 12/16/2024 CBC RBC 4.14 x10 3.50-5 .50 Not Available [facility] [address] [facility] 1, [place], [address], 12/16/2024 09:34:20 12/17/19 25 12/16/2024 CBC HGB 12.9 g/dL 12.0-1 6.0 Not Available [facility] [address] [facility] 1, [place], [address], 12/16/2024 09:34:20 12/17/19 25 12/16/2024 CBC HCT 40.6 % 37.0-4 7.0 Not Available [facility] [address] [facility] [facility] 1, [place], [address], 12/16/2024 09:34:20 12/17/19 25 12/16/2024 CBC MCV 98.1 fL 80.0-9 9.9 Not Available [facility] [address] [facility] [facility] 1, [place], [address], 12/16/2024 09:34:20 12/17/19 25 12/16/2024 CBC MCH 31.2 pg 27.0-3 2.0 Not Available [facility] [address] [facility] 1, [place], [address], 12/16/2024 09:34:20 12/17/19 25 12/16/2024 CBC MCHC 31.8 g/dL 32.0-3 6.0 low Not Available [facility] [address] [facility] 1, [place], [address], 12/16/2024 09:34:20 12/17/19 25 12/16/2024 CBC RDW 13.5 % 11.5-1 4.5 Not Available [facility] [address] [facility] 1, [place], [address], 12/16/2024 09:34:20 12/17/19 25 12/16/2024 CBC plt 358.2 x10 140.0- 451.0 Not Available [facility] [address] [place] [address] [facility] 1, [place], [address], 12/16/2024 09:34:20 12/17/19 25 12/16/2024 CBC lymphocytes % 20.6 % 20.0-5 0.0 Not Available [facility] [address] [place] [address] [facility] 1, [place], [address], 12/16/2024 09:34:20 12/17/19 25 12/16/2024 CBC granulcytes % 70.7 % 30.0-7 0.0 high Not Available [facility] [address] [facility], [place], [address], 12/16/2024 09:34:20 12/17/19 25 12/16/2024 CBC monocytes % 5.5 % 2.0-16 .0 Not Available [facility] [address] [place] [address] [facility] 1, [place], [address], 12/16/2024 09:34:20 12/17/19 25 12/16/2024 CBC granulcytes# 7.8 x10 Not Cat ilable [facility] [address] [place] [address] [facility], [place], [address], 12/16/2024 09:34:20 12/17/19 25 12/16/2024 CBC lymphocytes # 2.3 x10 Not Available [facility] [address] [place] [address] [facility] 1, [place], [address], 12/16/2024 09:34:20 12/17/19 25 12/16/2024 CBC monocytes # 0.6 x10 Not Avai lable [facility] [address] [place] [address] [facility] 1, [place], [address], 12/16/2024 09:34:20 05/21/20 25 05/24/2025 CULTU RE, URINE , ROUTI NE culture, urine, routine SEE NOTE abnormal CULTU RE, URINE , ROUTI NE Micro Numbe r: [id number] Test Statu s: Final Speci men [...] lexin and lorac arbef . Not Available [facility] [address] [place], [address], 05/24/2025 11:03:16 05/21/2005/21/2025 urina lysis , dipst ick Color Yellow Not Available [facility] ([facility]) [address] [place] [address], [address], 05/21/2025 13:17:51 05/21/20 25 05/21/2025 urina lysis , dipst ick Appearance Clear Not Available [facility] [address] [place] [address], [address], 05/21/2025 13:17:51 05/21/20 25 05/21/2025 urina lysis , dipst ick Glucose Negati ve Not Available [facility] ([facility]) [address] [place] [address], [address], 05/21/2025 13:17:51 05/21/20 25 05/21/2025 urina lysis , dipst ick Bilirubin Negati ve Not Available [facility] ([facility]) [address] [place] [address], [address], 05/21/2025 13:17:51 05/21/20 25 05/21/2025 urina lysis , dipst ick Ketone Negati ve Not Available [facility] ([facility]) [address] [place] [address], [address], 05/21/2025 13:17:51 05/21/20 25 05/21/2025 urina lysis , dipst ick Specific [place] 1.030 Not Available [facility] ( [facility]) [address] [place], [address], 05/21/2025 13:17:51 05/21/20 25 05/21/2025 urina lysis , dipst ick Leukocytes Trace Not Available [facility] ([facility]) [address] [place], [address], 05/21/2025 13:17:51 05/21/20 25 05/21/2025 urina lysis , dipst ick Nitrite negati ve Not Available [facility] ([facility]) [address] [place], [address], 05/21/2025 13:17:51 05/21/20 25 05/21/2025 urina lysis , dipst ick Urobilinogen .2 Not Available [facility] ([facility]) [address] [place], [address], 05/21/2025 13:17:51 05/21/20 25 05/21/2025 urina lysis , dipst ick Protein 30 Not Available [facility] ([facility]) [address] [place], [address], 05/21/2025 13:17:51 05/21/20 25 05/21/2025 urina lysis , dipst ick pH 5.5 Not Available [facility] ([facility]) [address] [place], [address], 05/21/2025 13:17:51 05/21/20 25 05/21/2025 urina lysis , dipst ick Blood Negati ve Not Available [facility] ([facility]) [address] [place], [address], 05/21/2025 13:17:51 03/11/20 25 03/10/2025 home sleep study No observ ation record ed. [facility] [address] [facility], [address], [place], [address], 03/12/2025 12:55:43 Result Notes None recorded. Problems Name Problem SNOMED Code Status Onset Date Resolution Date Notes Provider Name and Address Organization Details Recorded Time Essentia l hyperten rosalia 64730321 Active [address] [facility] 3 15:58:22 Hypercho lesterol emia 86856678 Active [address] [facility] 3 15:58:32 Gastriti s 6250130 Completed 202202/28/2023 Beltran Hahn MD [address] [place] [address], [address], [facility] 5 17:54:30 Arthriti s of knee 943328070 Active [address] [facility] 3 16:57:32 Insomnia 646038747 Active 2022 Beltran Hahn MD [address] [place] [address], [address], [facility] 3 12:17:39 Severe recurren t major depressi on without psychoti c features 68594862 Active 2023 Beltran Hahn MD [address] [place] [address], [address], [facility] 4 16:07:16 Synoviti s and tenosyno vitis of joint of hand Active 2023 Beltran Hahn MD [address] [place] [address], [address], [facility] 4 16:12:49 Morbid obesity 502585963 Active 2023 Beltran Hahn MD [address] [place] [address], [facility] 4 11:28:38 Pain of right shoulder joint 81570992622 872202 Active 2023 Beltran Hahn MD [address] [place] [address] 5, [facility] 4 16:12:17 Dental abscess 182708369 Active 2023 Beltran Hahn MD [address] [place] [address] 5, [facility] 4 17:19:49 Gastriti s 7379988 Active 2024 Beltran Hahn MD [address] [place], [place] [address], [facility] 5 17:54:30 Sleep apnea 92116265 Active 2024 CPAP started around 03/31/20 25 Carolina Zuluaga [facility] 5 14:13:54 Obstruct sirisha sleep apnea syndrome 94488935 Active 2024 [facility] 12:34:59 Bilatera l headache 791639941 Active 2024 Beltran Hahn MD [address] [place] [address], [facility] 5 15:29:26 Osteoart hritis 067995531 Active 2024 Beltran Hahn MD [address] [place] [address], [facility] 15:29:27 Problem Notes None recorded. Procedures Surgical History Date Name Laterality Status Provider Name and Address Organization Details Recorded Time Tubal Ligation completed VALENTÍN NG [facility] 04/01/2024 12:11:38 cholecystectomy completed [facility] 04/01/2024 12:11:44 Imaging Results None recorded. [...] Available Not Available meloxicam daily 03/21 completed 75369; Recorded 09/12/19 6:54AM by Olamide Brantley (Authori zed through Beltran Hahn MD), Refill Request; Refill [...] sure of the mg. 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 43 g 97.5 [degF] 72 /min 99 % 134/82 mm[Hg] [facility] LFang 17:24:00 Date Recorded Body height Body mass index (BMI) Body weight Oxygen saturation Heart rate Body temperature Systolic And Diastolic Provider Name and Address Organization Details Last Updated DateTime 5 157.48 cm 42.1 kg/m2 545618. 25 g 97 % 71 /min 98.3 [degF] 116/76 mm[Hg] Natasha Finch [facility] 5 13:13:18 Date Recorded Body height Body mass index (BMI) Body weight Oxygen saturation Heart rate Respiratory rate Body temperature Systolic And Diastolic Provider Name and Address Organization Details Last Updated DateTime 5 157.48 cm 41.1 kg/m2 402908. 56 g 99 % 99 /min 20 /min 97.2 [degF] 112/72 mm[Hg] Carolina Zuluaga [facility] 5 14:57:01 Date Recorded Body height Body mass index (BMI) Body weight Body temperature Oxygen saturation Heart rate Systolic And Diastolic Provider Name and Address Organization Details Last Updated DateTime 5 157.48 cm 41 kg/m2 762268. 69 g 97 [degF] 99 % 61 /min 108/70 mm[Hg] Carolina Zuluaga [facility] 5 14:16:28 Date Recorded Body height Body mass index (BMI) Body weight Oxygen saturation Heart rate Body temperature Systolic And Diastolic Provider Name and Address Organization Details Last Updated DateTime 5 157.48 cm 40.7 kg/m2 761665. 31 g 99 % 66 /min 98.9 [degF] 130/78 mm[Hg] Heidi Hutchison [facility] 5 13:22:08 Social History Question Answer Notes LastModified by Organizat ion Details LastModified Time Tobacco Smoking Status Never Smoker VALENTÍN silva [facility] 04/01/2024 12:11:21 What Is Your Level Of Caffeine Consumption? Occasional [email or web address] Information not available 12/15/2024 Which Illicit Or Recreational Drugs Have You Used? Marijuana [email or web address] Information not available 12/15/2024 What Type Of Marijuana Have You Used? Smoke [email or web address] Information not available 04/19/2025 Do You Or Have You Ever Used Marijuana? Current Every Day User [email or web address] Information not available 04/19/2025 What Was The Date Of Your Most Recent Tobacco Screening? 05/19/2025 [email or web address] Information not available 05/19/2025 Was Your Marijuana Use Recreational Or Medical? Medical [email or web address] Information not available 04/19/2025 Sex: Unknown Functional Status Question Answer Note LastModified by Organizat ion Details LastModified Time Do you use any illicit or recreational drugs? Yes [email or web address] Information not available 12/15/2024 What is your level of alcohol consumption? None [email or web address] Information not available 12/15/2024 Mental Status None recorded. Family History Nothing Reported Notes:Adopted. No HX Medical History Condition Response Coronary Artery Disease N Other N Gout N Kidney Stones N Blood Diseases N Hyperthyroidism N Breast Cancer N Blood Transfusion N Hypothyroidism N Depression Y COPD N Lung Disease N Defects or Inherited Disease N Developmental [...] Time Tdap 12/13/2022 completed Beltran Hahn MD [address] [place], [address], [facility] 12/14/2022 09:10:12 Tdap 05/20/[address] [facility] 12/14/2022 10:33:16 Influenza, split virus, quadrivalent, PF 06/01/[address] [facility] 12/14/2022 10:33:16 Influenza, split virus, trivalent, PF 04/22/2024 completed Beltran Hahn MD [address] [place] [address], [address], [facility] 04/23/2024 10:17:47 Past Encounters Encounter ID Performer Location Encounter Start Date Encounter Closed Date Diagnosis/Indication Diagnosis SNOMED-CT Code Diagnosis ICD10 Code Diagnosis IMO Codes Diagnosis Note [id number] Beltran Hahn MD [facility] ([facility]) [address] [place] [phone] 10/11/2022 15:50:14 10/17/2022 13:58:38 Gastritis 2856463 K29.70 likely gastritis is causing her symptoms and likely related to daily meloxicam use. Start PPI and stop meloxicam. f/u if sx do not improve. Arthritis of knee 282013 002 M13.869 we will transition to topical treatment. may also use tylenol. discussed daily exercise and wt loss in overal management . Essential hypertension 25755185 I10 Beltran Hahn MD [facility] ([facility]) [address] [place] [phone] 12/13/2022 15:38:58 12/15/2022 16:00:00 Hypercholesterolemia 80717588 E78.00 Essential hypertension 73004961 I10 Patient will monitor blood pressure and report if unable to control or if they develop new symptoms. Screening mammography 24 541517 Z12.31 Screening colonoscopy 44 0980436 Z12.11 Hepatitis C screening 41 1784627 Z11.59 Administra tion of tetanus vaccine 004634146 Z23 Depressive disorder 6858 9007 F33.9 [id number] Beltran Hahn MD [facility] ([facility]) [address] [place] [id number] 03/01/2023 12:02:15 03/11/2023 10:07:51 Insomnia 576941289 G47.00 Essential hypertension 51204969 I10 Patient will monitor blood pressure and report if unable to control or if they develop new symptoms. Arthritis of knee 820233 002 M13.869 Patient doing well on topical medication s. Handicap placard forms given to the patient today. [id number] Beltran Hahn MD [facility] ([facility]) [address] [place] [phone] 03/23/2024 15:28:06 03/23/2024 16:15:38 Essential hypertension 45174571 I10 Will restart hydrochlor othiazide. Monitor blood pressure at home and keep a log. Provide readings in 1 week. Severe rec urrent major depression without psychotic features 37218408 F33.2 Will add bupropion as to the previously discussed. Synovitis and tenosynovitis of joint of hand 1072326530 M65.842 Discussed RICE. Instructed the patient to do basic range of motion exercises and gripping exercises. Patient should do relative rest and if symptoms are not improving then follow-up. Morbid obesity 235107865 E66.01 Discussed diet, exercise, and weight loss. Hypercholesterolemia 136 81750 E78.00 Tolerating statin. Will plan on checking cholestero l at next follow-up visit. [id number] Porsha Novak MD [facility] ([facility]) [address] [place] [phone] 04/01/2024 11:39:14 04/02/2024 11:17:16 Screening mammography 23295465 Z12.31 Postmenopa usal bleeding 06527904 N95.0 I discussed that even if the patient's Pap smear and pelvic ultrasound appear normal she would still require an endometria l biopsy to rule out malignancy . She understand s this and will follow-up about a week after her pelvic ultrasound to discuss the plan for endometria l biopsy. [id number] Porsha Novak MD [facility] ([facility]) [address] [place] [phone] 04/02/2024 11:42:42 04/02/2024 16:20:33 [id number] Beltran Hahn MD [facility] ([facility]) [address] [place] [id number] 04/22/2024 15:35:52 04/22/2024 16:30:50 Severe recurrent major depression without psychotic features 83639082 F33.2 Patient is doing better with the addition of Wellbutrin . Patient denies any significan t side effects. Essential hypertension 10875608 I10 Will add lisinopril . Check labs today. Continue to monitor blood pressure at home. Hypercholesterolemia 136 82251 E78.00 Check lipid panel Active or passive immunization 374333698 Z23 Pain of ri ght shoulder joint 2135330128 0069420 M25.511 Exercises provided for the patient to do at home. Will start a muscle relaxer. Add diclofenac gel. [id number] Porsha Novak MD [facility] ([facility]) [address] [place] [id number] 04/29/2024 11:38:40 04/29/2024 13:05:02 Postmenopausal bleeding 23358524 N95.0 Pt was receiving testostero ne and [...] procedures at one time. Will refer to head sulfide operator who can perform polypectom y at the time of EMB. 04/29/24 Polyp at cervical os 248 823270 N84.1 [id number] Beltran Hahn MD [facility] ([facility]) [address] [place] [id number] 05/13/2024 16:50:47 05/13/2024 17:29:02 Dental abscess 588820796 K04.7 Will go ahead and start antibiotic s and provide medication to help with pain. Maintain dental follow-up. [id number] Beltran Hahn MD [facility] ([facility]) [address] [place] [id number] 12/15/2024 17:15:48 12/17/2024 10:19:01 Hypercholesterolemia 90864399 E78.00 Continue statin. Recheck cholestero l Morbid obesity [id number] E66.01 Discussed diet, exercise, and weight loss. Severe rec urrent major depression without psychotic features [id number] F33.2 Doing well with bupropion. Essential hypertension [id number] I10 Blood pressure management . Medication s. Continue blood pressure management . General ex amination of patient [id number] Z00.00 [id number] Encouraged patient to exercise regularly, work on [employer] diet and weight loss. Insomnia [id number] G47.0 0 Restart tramadol to help with insomnia Gastritis [id number] K29.70 Doing well with omeprazole . [id number] THELMA MICHAEL [facility] ([facility]) [address] [place] [phone] 01/08/2025 12:56:35 01/08/2025 13:00:27 Swelling of eyelid [id number] H02.845 [id number] Swelling to left lower eyelid present. No eye pain, vision changes, or drainage. Suspect insect bite. Discussed cool compress to the area. Return if you develop new/worsen ing s/s [id number] Beltran Hahn MD [facility] ([facility]) [address] [place] [phone] 04/19/2025 14:47:20 04/19/2025 15:31:41 Left flank pain [id number] R10.A2 - Encourage monitoring of triggers; address soda consumptio n impact. Bilateral headache 11381 1005 R51.9 - Continue to evaluate symptoms; no immediate red flags noted. Screening mammography 24 984627 Z12.31 [id number] - Refer for screening mammogram per guideline recommenda tion. Osteoarthritis [id number] M19.90 [id number] - Authorized refill of meloxicam per patient's request. [id number] Beltran Hahn MD [facility] ([facility]) [address] [place] [phone] 05/19/2025 14:06:47 05/19/2025 15:05:05 Obstructive sleep apnea syndrome [id number] G47.33 - Continued CPAP therapy as instructed based on compliance and symptom improvemen t. - Contact if new issues arise or symptoms worsen. [id number] THELMA AGUILERA [facility] ([facility]) [address] [place] [phone] 05/21/2025 13:07:46 05/21/2025 13:42:02 Dysuria [id number] R30.0 [id number] Discussed to take antibiotic as prescribed until [...] [place] - [place] - [facility] (MEDICARE) Nicole Ruthann [facility] [id number] Nicole Ruthann [facility] 05/24/2025 1 [facility] (MEDICARE REPLACEMENT/AD VANTAGE - PPO) [id number] [facility] [id number] Nicole M [facility] 12/02/2022 1 MEDICARE [place]: [facility] Nicole Ruthann [facility] [id number] [address] M [facility] 12/02/2022 2 [facility] (MEDICAID REPLACEMENT - HMO) Nicole M [facility] [id number] Nicole M [facility] 03/23/2024 1 [facility] (MEDICARE REPLACEMENT/AD VANTAGE - HMO) Nicole Ruthann [facility] [id number] Nicole Burchs Notes Date Note Type Note Provider Name [...] without significant side effects. Beltran Hahn MD [address] [place] [address], [phone], [facility] 12/19/2024 17:22:23 5 text/html ROS as noted in the HPI walk ono2jssi swelling under left eye, has bump -itching, no pain. Denies eye drainage, eye itching, vision changes, or other skin issues. States the swelling is improved today. THELMA MICHAEL [address] [place] [address], [phone], [facility] 01/11/2025 17:45:23 5 text/html Skin LesionReported by [...] of her meloxicam prescription. Beltran Hahn MD [address] [place] [address], [phone], [facility] 04/19/2025 15:29:53 5 text/html The patient [...] of feeling rested. Beltran Hahn MD [address] [place], [phone], [facility] 05/19/2025 15:32:00 5 text/html ROS as noted in the HPI Walk inPossible UTI. Patient complains of increased urinary frequency, urgency, burning, back pain x1 day. Patient has not taken anything for symptoms. THELMA AGUILERA [address] [place], [phone], [facility] 05/21/2025 13:38:38 OBGyn Episode No OBEpisode recorded.
[2025-06-11 02:55] VITALS: BP 118/85; PULSE 70; RESP 18; TEMP 36.4; O2SAT 98; BMI 36.6
[2025-06-11 04:00] LABS: UA Manual Slide Review YES
--- NOTE | 2025-06-11 04:17 | W.ED.FEMALGU ---
HPI - Female Genitourinary General: Chief complaint: Urogenital-Female Stated complaint: flank burning when pee Time Seen by Provider: 06/11/25 02:56 History of Present Illness: Patient is a 59-year-old female with past medical history of hypertension, hyperlipidemia, presents with a chief complaint of dysuria that started at midnight today. Patient reports burning with urination and suprapubic discomfort. Patient states she has not had a fever and denies chest pain, shortness of breath, hemoptysis, productive cough, flank pain, nausea, vomiting. Patient denies change in bowel habits and denies blood in stool. She states that within the last month, she noted a little bit of blood in her urine. Of note, this is her third round of dysuria. She was treated for a urinary tract infection when she presented to the emergency department on 05/30/2025 and prescribed antibiotics. Patient was prescribed cefdinir. She also was treated prior to that with another round of antibiotics. She states that after antibiotic course, symptoms usually resolve for about 1 week but have returned each time. She denies a history of kidney stone. Patient states that she is not sexually active and denies abnormal pelvic discharge, bleeding. Related Data Home Medications ?Medication ?Instructions ?Recorded ?Confirmed acetaminophen 325 mg capsule 325 mg PO QID PRN Pain 01/25/22 04/01/25 (Tylenol) nebkqpzs-tjx-ehqzk ac 400 1 tab PO DAILY 01/25/22 04/01/25 mcg-calcium carb 500 mg-vit K1 20 mcg tablet (Women's 50 Plus Multivitamin) paroxetine HCl 20 mg tablet 20 mg PO DAILY 01/25/22 04/01/25 calcium citrate 250 mg PO DAILY 07/04/22 04/01/25 ferrous sulfate 324 mg (65 mg 324 mg PO DAILY 07/04/22 04/01/25 iron) tablet,delayed release magnesium oxide 400 mg PO DAILY 07/04/22 04/01/25 amlodipine 5 mg tablet 10 mg PO DAILY 01/15/23 04/01/25 bupropion HCl 150 mg 24 hr tablet, mg PO 06/02/24 04/01/25 extended release fenofibrate 160 mg tablet mg PO 06/02/24 04/01/25 lisinopril 20 mg tablet mg PO 06/02/24 04/01/25 methocarbamol 750 mg tablet mg PO 06/02/24 04/01/25 Previous Rx's ?Medication ?Instructions ?Recorded atorvastatin 40 mg tablet 40 mg PO DAILY #90 tabs 01/21/23 hydrochlorothiazide 25 mg tablet 25 mg PO DAILY #30 tabs 04/12/23 carvedilol 6.25 mg tablet 6.25 mg PO BID #60 tabs 03/16/24 Allergies Allergy/AdvReac Type Severity Reaction Status Date / Time No Known Allergies Allergy Verified 04/01/25 14:35 PFS ED PFSH: Medical History (Updated 06/11/25 @ 06:12 by Betty Hong MD) Hyperlipidemia Hypertension Tubal Surgical History Hx of cholecystectomy S/P tubal ligation S/P knee replacement Family History Mother Cervical cancer Ovarian cancer Uterine cancer Social History Smoking and tobacco/nicotine status: former use of tobacco/nicotine Second hand smoke exposure: No Alcohol intake: never Substance/Drug Use: never Physical Exam Narrative: EXAM NARRATIVE: Vital signs were reviewed. Patient is alert and oriented. Patient is breathing comfortably, no increased WOB or accessory muscle use. SpO2 is above 95% on RA. Patient has clear lungs b/l, no rhonchi, wheezing or crackles. No hypotension or tachycardia. Abdomen is soft, nondistended and nontender. No CVA tenderness with percussion of the flanks. Patient is moving all extremities, no deformity or gross injury. No lower extremity edema or asymmetry. Course Vital Signs: Vital signs: Vital Signs Temperature 97.5 F L 06/11/25 02:55 Pulse Rate 70 06/11/25 02:55 Respiratory Rate 18 06/11/25 02:55 Blood Pressure 118/85 06/11/25 02:55 Pulse Oximetry 98 06/11/25 02:55 MDM - Female Medical Decision Making 59-year-old female presents with a chief complaint of dysuria. Dysuria started at midnight and is her third episode within the last month or so. She has completed 2 courses of antibiotics, one of them was cefdinir, in the past 1 month. Differential diagnosis includes, but is not limited to, urinary tract infection, pyelonephritis, kidney stone, irritable bladder, other. On exam she is centrically stable and does not appear toxic. UA demonstrates 21-50 red blood cells, 50-100 white blood cells, no bacteria and negative leuk esterase. Given this is her third UTI recently, I have a concern for underlying pathology like undiagnosed kidney stone. Added CT imaging to rule out a complicating kidney stone. Patient has only minimally elevated white blood cell count, mildly elevated creatinine from previous but anion gap is within normal limits. There are no actionable electrolyte abnormalities. UA does demonstrate concern for infection, there is hematuria and 50-100 white blood cells. Final disposition is pending CT imaging. Care was signed out to Dr. Goddard pending CT. Lab Data 06/11/25 04:14 06/11/25 04:14 Laboratory Results WBC 11.92 10^3/uL (3.29-11.43) H 06/11/25 04:14 RBC 3.87 10^6/uL (3.85-5.65) 06/11/25 04:14 Hgb 11.50 g/dL (11.27-16.99) 06/11/25 04:14 Hct 36.1 % (36-47) 06/11/25 04:14 MCV 93.3 fl (85-98) 06/11/25 04:14 MCH 29.7 pg (27-33) 06/11/25 04:14 MCHC 31.9 g/dL (30-55) 06/11/25 04:14 RDW 12.7 % (12.1-15.1) 06/11/25 04:14 Plt Count 304 10^3/cmm (157-399) 06/11/25 04:14 MPV 9.2 fL (7.4-10.4) 06/11/25 04:14 Neut % (Auto) 73.4 % 06/11/25 04:14 Lymph % (Auto) 17.6 % 06/11/25 04:14 [place] % (Auto) 7.2 % 06/11/25 04:14 Eos % (Auto) 1.3 % 06/11/25 04:14 Baso % (Auto) 0.3 % 06/11/25 04:14 Neut # (Auto) 8.74 10^3/uL (1.8-7.7) H 06/11/25 04:14 Lymph # (Auto) 2.1 10^3/uL (0.8-4.8) 06/11/25 04:14 [place] # (Auto) 0.9 10^3/uL (0.2-0.9) 06/11/25 04:14 Eos # (Auto) 0.2 10^3/uL (0.0-0.8) 06/11/25 04:14 Baso # (Auto) 0.0 10^3/uL (0.0-0.1) 06/11/25 04:14 Nucleated RBC % (auto) 0 % 06/11/25 04:14 Nucleated RBCs # 0.0 /100WBC 06/11/25 04:14 Sodium 139 mmol/L (136-145) 06/11/25 04:14 Potassium 4.3 mmol/L (3.5-5.1) 06/11/25 04:14 Chloride 103 mmol/L (98-107) 06/11/25 04:14 Carbon Dioxide 27 mmol/L (22-29) 06/11/25 04:14 Anion Gap 13.3 (5-19) 06/11/25 04:14 BUN 27 mg/dL (8-23) H 06/11/25 04:14 Creatinine 1.3 mg/dL (0.5-0.9) H 06/11/25 04:14 GFR Calculation 41.8 mL/min (90-130) L 06/11/25 04:14 Glucose 122 mg/dL (65-115) H 06/11/25 04:14 Calculated Osmolality 294 mOsm/kg (285-295) 06/11/25 04:14 Calcium 9.6 mg/dL (8.5-10.5) 06/11/25 04:14 Total Bilirubin 0.5 mg/dL (0.15-1.2) 06/11/25 04:14 AST 20 U/L (0-32) 06/11/25 04:14 ALT 15 U/L (0-33) 06/11/25 04:14 Alkaline Phosphatase 37 U/L (35-105) 06/11/25 04:14 Total Protein 7.0 g/dL (6.6-8.7) 06/11/25 04:14 Albumin 4.4 g/dL (3.5-5.2) 06/11/25 04:14 Globulin 2.6 g/dL (1.3-4.6) 06/11/25 04:14 Urine Color Yellow (Yellow) 06/11/25 02:57 Urine Appearance Cloudy (CLEAR) A 06/11/25 02:57 Urine pH Not Reportable 06/11/25 02:57 Ur Specific [place] Not Reportable 06/11/25 02:57 Urine Protein Not Reportable 06/11/25 02:57 Urine Glucose (UA) Not Reportable 06/11/25 02:57 Urine Ketones Not Reportable 06/11/25 02:57 Urine Blood Not Reportable 06/11/25 02:57 Urine Nitrate Not Reportable 06/11/25 02:57 Urine Bilirubin Not Reportable 06/11/25 02:57 Urine Urobilinogen Not Reportable 06/11/25 02:57 Ur Leukocyte Esterase Not Reportable 06/11/25 02:57 Urine RBC 21-50 /hpf (0-2) H 06/11/25 02:57 Urine WBC 51-100 /hpf (0-5) H 06/11/25 02:57 Ur Squamous Epith Cells 5-10 /hpf (0-5) H 06/11/25 02:57 Amorphous Sediment Not Reportable 06/11/25 02:57 Urine Bacteria Trace /hpf (NONE) 06/11/25 02:57 Urine Mucus 2+ /hpf 06/11/25 02:57 All radiology interpretation(s) finalized by discharge Discharge Plan Discharge Clinical Impression: Urinary tract infection Qualifiers: Urinary tract infection type: acute cystitis Hematuria presence: with hematuria Qualified Code(s): N30.01 - Acute cystitis with hematuria Condition: Stable Prescriptions: New nitrofurantoin monohyd/m-cryst [Macrobid] 100 mg capsule 100 mg PO BID 5 Days Qty: 10 0RF Rx Instructions: must administer with a meal/food No Action amlodipine 5 mg tablet 10 mg PO DAILY calcium citrate 250 mg calcium tablet 250 mg PO DAILY ferrous sulfate 324 mg (65 mg iron) tablet,delayed release (DR/EC) 324 mg PO DAILY magnesium oxide 400 mg magnesium capsule 400 mg PO DAILY hydrochlorothiazide 25 mg tablet 25 mg PO DAILY Qty: 30 6RF fenofibrate 160 mg tablet PO methocarbamol 750 mg tablet PO bupropion HCl 150 mg tablet extended release 24 hr PO lisinopril 20 mg tablet PO atorvastatin 40 mg tablet 40 mg PO DAILY Qty: 90 1RF carvedilol 6.25 mg tablet 6.25 mg PO BID Qty: 60 0RF Rx Instructions: PATIENT KEEP APPOINTMENT ON 03/30/24 FOR FURTHER REFILLS must administer with a meal/food paroxetine HCl 20 mg Tablet 20 mg PO DAILY acetaminophen [Tylenol] 325 mg Capsule 325 mg PO QID PRN (Reason: Pain) Women's 50 Plus Multivitamin 400 mcg-500 mg calcium-20 mcg Tablet 1 tab PO DAILY Referrals: Arturo Hahn MD [Primary Care Provider, Family Practice] Activity Restrictions/Additional Instructions: Please continue to monitor your condition closely at home. Take Ibuprofen 400mg and Tylenol 500-1000mg every six hours for pain and inflammation. You may use [id number] Azo for symptomatic relief. Please start taking antibiotics as prescribed. If your condition worsens or additional concerns arise, please return promptly to the emergency department for reassessment. Follow up with your primary care doctor by Saturday. Please have your doctor request results of urine culture done at today's visit to help better guide antibiotic therapy. Print Language: French Coding Level of Care Code ED [employer] for Tony Carreon
[2025-06-11 04:21] LABS: Hematocrit 36.1 % (36-47); Hemoglobin 11.50 g/dL (11.27-16.99); Mean Corpuscular HGB Conc 31.9 g/dL (30-55); Mean Corpuscular Hemoglobin 29.7 pg (27-33); Mean Corpuscular Volume 93.3 fl (85-98); Nucleated Red Blood Cells % 0 %; Platelet Count 304 10^3/cmm (157-399); Red Blood Count 3.87 10^6/uL (3.85-5.65); White Blood Count 11.92 10^3/uL (3.29-11.43)
--- NOTE | 2025-06-11 04:23 | CTR_ITS ---
PROCEDURE INFORMATION: Exam: CT Abdomen And Pelvis Without Contrast Exam date and time: 06/11/2025 5:18 AM Age: 59 years old Clinical indication: Abdominal pain; Additional info: Recurrent utis, flank pain TECHNIQUE: Imaging protocol: Computed tomography of the abdomen and pelvis without contrast. Radiation optimization: All CT scans at this facility use at least one of these dose optimization techniques: automated exposure control; mA and/or kV adjustment per patient size (includes targeted exams where dose is matched to clinical indication); or iterative reconstruction. COMPARISON: CT abdomen pelvis w con* [id number] 03/13/2024 10:25 PM RADIATION DOSE METRICS: Total DLP (mGy-cm): 946.33 FINDINGS: Liver: Normal. No mass. Gallbladder and biliary ducts: Cholecystectomy. Pancreas: Normal. No ductal dilation. Spleen: Normal. No splenomegaly. Adrenal glands: Normal. No mass. Kidneys and ureters: Nonobstructing left renal calculi. Stomach and bowel: Unremarkable. No obstruction. No mucosal thickening. Appendix: No evidence of appendicitis. Intraperitoneal space: Unremarkable. No free air. No significant fluid collection. Vasculature: Unremarkable. No abdominal aortic aneurysm. Lymph nodes: Unremarkable. No enlarged lymph nodes. Urinary bladder: Unremarkable as visualized. Reproductive: Unremarkable as visualized. Bones/joints: Unremarkable. No acute fracture. Soft tissues: Unremarkable. CT/CT kidney stone [id number] IMPRESSION: No acute findings.
[2025-06-11 04:36] LABS: Alanine Aminotransferase 15 U/L (0-33); Albumin Level 4.4 g/dL (3.5-5.2); Alkaline Phosphatase 37 U/L (35-105); Anion Gap 13.3 (5-19); Aspartate Amino Transferase 20 U/L (0-32); Blood Urea Nitrogen 27 mg/dL (8-23); Calcium 9.6 mg/dL (8.5-10.5); Carbon Dioxide 27 mmol/L (22-29); Chloride 103 mmol/L (98-107); Globulin 2.6 g/dL (1.3-4.6); Glucose 122 mg/dL (65-115); Osmolality Calculated 294 mOsm/kg (285-295); Potassium 4.3 mmol/L (3.5-5.1); Sodium 139 mmol/L (136-145); Total Protein 7.0 g/dL (6.6-8.7)
[2025-06-11 07:05] VITALS: BP 123/75; PULSE 64; O2SAT 98
== END 2025-06-11 07:08 | disposition home or self-care (01) ==
PROVIDERS: Emergency Medicine; Emergency Provider Emergency Medicine; PCP Family Medicine
DX: N30.01 Acute cystitis with hematuria (principal); Z87.891 Personal history of nicotine dependence; E78.5 Hyperlipidemia, unspecified; I10 Essential (primary) hypertension
CPT/HCPCS: 36415; 74176; 80053; 81001; 85025; 87077; 87086; 87186; 99284